=== PATIENT | female | born 1995 | race Caucasian/White ===

== ENCOUNTER → 2020-05-15 09:30 | Outpatient (CLI) | payer OTHER, SELFPAY ==
[2020-05-16 12:37] LABS: COVID19 Sendout Not Detected (Not Detect)
== END ==
PROVIDERS: Visit Provider Physician Assistant
DX: Z11.59 Encounter for screening for other viral diseases (principal)
CPT/HCPCS: 87635

== ENCOUNTER 2020-05-18 13:30 | Day surgery (SDC) | payer OTHER, SELFPAY ==
[2020-05-18] VITALS (9 sets, daily range): BP systolic 112–126; BP diastolic 61–83; PULSE 66–95; RESP 10–16; TEMP 36.1–36.6; O2SAT 96–100; BMI 18.8
[2020-05-18] MEDS: OXYMETAZOLINE NASAL SPRAY 15 ML 2 SPRAYS NASAL (14:12)
[2020-05-18] MEDS: LACTATED RINGERS 1,000 ML 42 ML IV ×2 (14:24→16:28)
--- NOTE | 2020-05-18 15:16 | PM.PREOP ---
Pre-operative Note COVID-19 COVID-19 status: Negative Interval Note History & Physical reviewed/Exam performed by Physician: Yes Changes to H&P: No
--- NOTE | 2020-05-18 15:17 | P.HP_ITS ---
History of Present Illness History of Present Illness Date Patient Seen: 05/18/20 Time Patient Seen: 15:17 Chief complaint: Nasal airway obstruction Narrative: 24-year-old female presents with complaint of nasal airway obstruction, 2+ right septal deviation, inferior turbinate hypertrophy, and evidence of right internal nasal valve collapse. Following discussion of the material risks benefits complications and alternatives, she elected to proceed with septoplasty, inferior turbinate reduction, and right internal nasal valve release. Patient History Medical History Anemia (Acute) Chronic anxiety (Acute) Deviated septum (Acute) Hypertrophy, nasal, turbinate (Acute) Incompetent nasal valve (Acute) Migraine headache (Acute) MRSA (methicillin resistant Staphylococcus aureus) (Acute 2014) Nasal congestion (Acute) Nasal obstruction (Acute) Rib injury (Acute 2019) Ruptured ovarian cyst (Acute 2017) Surgical History [place] teeth removed (Acute 05/06/13) Family & Social History Social History: household members spouse Tobacco & Substance use: Tobacco type cigarettes Smoking Status Current every day smoker Smoking packs per day 0.5 alcohol intake current alcohol intake frequency holiday/special occasion Substance Use Type does not use Meds Home Medications and Allergies Home Medications Medication Instructions Recorded Confirmed Type [id number] See Rx Instructions .ROUTE .COMPLEX 05/18/20 05/18/20 History tretinoin [Retin-A] 1 applic TOPICAL BEDTIME 05/18/20 05/18/20 History Allergies Allergy/AdvReac Type Severity Reaction Status Date / Time latex Allergy Intermediate Hives Verified 05/18/20 14:05 Review of Systems Review of Systems ROS: Yes All systems reviewed with the patient and are negative except as otherwise documented Exam Vital Signs (past 8 hours): - 05/18/20 13:56 Temperature 97.9 F Pulse Rate 86 Respiratory Rate 16 Blood Pressure 123/83 Pulse Oximetry 100 Oxygen Delivery Method Room Air Narrative Exam Narrative: Well-developed well-nourished female. Heart regular rate and rhythm without murmur, lungs clear to auscultation bilaterally Assessment & Plan Assessment & Plan narrative: Nasal airway obstruction, septal deviation, inferior turbinate hypertrophy, right internal nasal valve restriction. Following discussion of the material risks benefits complications and alternatives, the patient elected to proceed with septoplasty, inferior turbinate reduction, and right internal nasal valve release.
--- NOTE | 2020-05-18 15:20 | P.OP_ITS ---
Operative Date/Time/Diagnoses Date of procedure: 05/18/20 Time of procedure: 16:30 Pre-op diagnosis: Nasal airway obstruction, septal deviation, inferior turbinate hypertrophy, right internal nasal valve restriction Post-op diagnosis: same Procedure & Clinicians Procedure: 1. Septoplasty 2. Bilateral inferior turbinate reduction via intramural cautery Same procedure as scheduled: Yes Indications: 24-year-old female with the above diagnoses incompletely managed with medical therapy presents for the above procedure. Following discussion of the material risks benefits complications and alternatives, the patient elected to proceed. Surgeon: Phil Collazo Click Yes if Unassisted: Yes Anesthesia Type: General and Local Operative Notes Findings: 2+ left septal deviation, large left posterior spur, resected, significant left flap tear and that area, right flap entirely intact. Moderate inferior turbinate hypertrophy. Right internal nasal valve restriction no longer present after completion of septoplasty, therefore valve release not performed. Closure Type: primary Specimen(s): none sent Estimated Blood Loss (mL): 70 Blood products transfused: none Procedure in detail: Following identification and confirmation of consent as well as preoperative Afrin nasal spray, the patient was brought to the operating room suite and placed in the supine position. General endotracheal anesthesia was administered. I infiltrated the septum widely bilaterally with 1% lidocaine 1 100,000 epinephrine followed by temporary packing with cotton with Afrin and 4% lidocaine. Following sterile prep and drape, the packing was removed and I performed a right sam transection incision, elevated the right mucoperichondrial and mucoperiosteal flap. I disarticulated near the bony cartilaginous junction and elevated the left mucoperiosteal flap. Deviated p ortions of the perpendicular plate of the ethmoid and vomer were resected, including a large left posterior septal spur that led to a significant flap tear on that side, right flap entirely intact. The residual quadrilateral cartilage was further straightened by trimming it inferiorly, and the maxillary crest was reduced as well. A 2 mm strip of cartilage paralleling the residual 1 cm dorsal and caudal strut was resected to further straighten the quadrilateral cartilage. The hemitransfixion incision was closed with interrupted 5 0 chromic followed by a running 4 0 plain gut mattress suture to reapproximate the septal flaps. At case completion, 20/1000th of an inch silastic splints were placed bilaterally, sutured anteriorly with a single 4 0 nylon. The head of each inferior turbinate had been previously infiltrated with additional local anesthetic and a 25 gauge spinal needle was used to impaled the length of the turbinate, with cautery on a setting of 15 activated on slow withdrawal, repeated 1 time. The turbinates were then outfractured. The procedure completed, sponge and needle counts were correct and she was extubated in the operating room and taken to recovery room in stable condition without known complication. Postoperative care: Nasal saline every hour while awake, Vaseline to the nostrils at all times, begin irrigations t.i.d. beginning pod 1. Humidifier at the bedside blowing on her face. Tylenol alternating with Advil for pain control, oxycodone if necessary for breakthrough pain. Complications: none Post-operative Condition: stable Disposition: same day surgery Plan for aftercare: DC home, follow-up in 1 week as scheduled for splint removal. Nasal saline every hour while awake, Vaseline to the nostrils at all times, beginning irrigations t.i.d. tomorrow if desired. Tylenol alternating with Advil for pain control, possible oxycodone for breakthrough pain.
[2020-05-18] MEDS: LIDOCAINE 4% SOLN 50 ML 20 ML TOP (15:48)
[2020-05-18] MEDS: LIDOCAINE 1% W/EPI 20 ML INJ (15:48)
[2020-05-18] MEDS: BACITRACIN OINT 0.9 GM PCKT 1 APPLIC TOP (15:51)
[2020-05-18] MEDS: OXYCODONE/ACETAMINOPHEN 5/325 TABLET 1 TAB PO ×2 (16:44→17:03)
[2020-05-18] MEDS: ONDANSETRON 4 MG/2 ML INJ IV (17:03)
== END 2020-05-18 18:00 | disposition home or self-care (01) ==
PROVIDERS: Referring Provider Otolaryngology; Visit Provider Otolaryngology
PROC: (CPT 30520; principal; 2020-05-18 14:45)
DX: J34.2 Deviated nasal septum (principal); J34.89 Other specified disorders of nose and nasal sinuses; J34.3 Hypertrophy of nasal turbinates; F17.210 Nicotine dependence, cigarettes, uncomplicated
CPT/HCPCS: 30520; 30140; A9270; J2250; J2405; J2704; J3010

== ENCOUNTER 2021-12-03 05:31 | Emergency (ER) | payer OTHER, SELFPAY ==
[2021-12-03] VITALS (29 sets, daily range): BP systolic 103–126; BP diastolic 58–79; PULSE 58–90; RESP 11–29; TEMP 36.6–37.1; O2SAT 95–99; BMI 18.0
--- NOTE | 2021-12-03 05:44 | ED_ITS ---
HPI - General Adult <Ann Tolbert MD - Last Filed: 12/04/21 03:55> General Chief complaint: Arrhythmia/Palpitations Stated complaint: SOB/FACE AND HANDS NUMB Time Seen by Provider: 12/03/21 05:43 History of Present Illness HPI narrative: Otherwise healthy 26-year-old woman presents with an episode of palpitations this evening that led to shortness of breath followed by a numbness in the lower part of her chin and upper arms and then a full syncopal episode. She describes this is the 3rd episode in the last 2 weeks. Prior to each episode she gets the sensation of feeling hot, clammy with acute nausea lasting approximately 20-30 seconds before she passes out. She states that over the course of her lifetime she has had minor palpitations but nothing as notable as these recent episodes in the last 2 weeks. She describes no recent fever, cough, chills, abdominal pain, vomiting, diarrhea, headaches. No recent COVID infections or other unusual findings. She notes that she is not and is expecting her menstrual cycle within the next week or so. Related Data Home Medications Medication Instructions Recorded Confirmed [id number] See Rx Instructions .ROUTE .COMPLEX 05/18/20 05/18/20 tretinoin 0.025 % topical cream 1 applic TOPICAL BEDTIME 05/18/20 05/18/20 (Retin-A) Allergies Allergy/AdvReac Type Severity Reaction Status Date / Time latex Allergy Intermediate Hives Verified 05/18/20 14:05 Review of Systems <Ann Tolbert MD - Last Filed: 12/04/21 03:55> Review of Systems Narrative: Remainder of complete review of systems is otherwise unremarkable except for that included in the HPI. Patient History <Ann Tolbert MD - Last Filed: 12/04/21 03:55> Medical History (Updated 12/03/21 @ 06:59 by Ann Tolbert MD) Anemia Chronic anxiety Deviated septum Hypertrophy, nasal, turbinate Incompetent nasal valve Migraine headache MRSA (methicillin resistant Staphylococcus aureus) (2014) Nasal congestion Nasal obstruction Rib injury (2019) Ruptured ovarian cyst (2017) Surgical History [place] teeth removed (05/06/13) Social History household members: spouse Smoking Status: Current every day smoker alcohol intake: current Smoking Status: Current every day smoker alcohol intake frequency: holidays/special occasions only Substance Use Type: does not use Exam <Ann Tolbert MD - Last Filed: 12/04/21 03:55> Initial Vital Signs Initial Vital Signs: Vital Signs Temperature 98.8 F 12/03/21 05:45 Pulse Rate 85 12/03/21 05:45 Respiratory Rate 20 12/03/21 05:45 Blood Pressure 126/79 12/03/21 05:45 Pulse Oximetry 99 12/03/21 05:45 General: Healthy appearing, in no acute distress. Able to give a complete and coherent history. Well-nourished well-developed HEENT: Moist mucous membranes, normal sclera with reactive pupils, Neck: No JVD, supple Respiratory: Lungs are clear to auscultation, no wheezing no rales no rhonchi. Full and symmetrical air movement Cardiac: Regular rate and rhythm no murmurs no bruits Abdomen: Soft, nontender, good bowel tones, no flank pain Skin: Warm and dry, no rashes Neurologic: Grossly neurologically intact with no obvious asymmetries or abnormalities Extremities: No trauma, well perfused Psych: Cooperative, appropriate insight and affect <Demetris Linares DO - Last Filed: 12/03/21 18:51> Initial Vital Signs Initial Vital Signs: Vital Signs Temperature 98.8 F 12/03/21 05:45 Pulse Rate 85 12/03/21 05:45 Respiratory Rate 20 12/03/21 05:45 Blood Pressure 126/79 12/03/21 05:45 Pulse Oximetry 99 12/03/21 05:45 Course <Ann Tolbert MD - Last Filed: 12/04/21 03:55> Orders Ordered: Discontinued Medications Ketorolac Tromethamine (Ketorolac 30 Mg/Ml Vial) 15 mg IV NOW ONE Stop: 12/03/21 06:16 Last Admin: 12/03/21 07:15 Dose: Not Given Documented by: ANGELO Potassium Chloride (Potassium Chloride 20 Meq Tab) 40 meq PO NOW ONE Stop: 12/03/21 06:56 Last Admin: 12/03/21 06:59 Dose: 40 meq Documented by: JENNY Vital Signs Vital signs: Vital Signs - 8 hr 12/03/21 11:00 12/03/21 11:30 12/03/21 12:00 Temperature Pulse Rate 67 75 70 Respiratory Rate 19 15 16 Blood Pressure Pulse Oximetry 97 97 97 12/03/21 12:11 12/03/21 12:30 12/03/21 13:00 Temperature Pulse Rate 77 69 73 Respiratory Rate 13 16 11 L Blood Pressure 104/58 L 108/59 L 108/68 Pulse Oximetry 98 97 97 12/03/21 13:30 12/03/21 14:00 12/03/21 14:30 Temperature Pulse Rate 71 62 61 Respiratory Rate 14 12 15 Blood Pressure 112/60 104/60 104/61 Pulse Oximetry 97 98 96 12/03/21 15:07 12/03/21 15:30 12/03/21 16:00 Temperature Pulse Rate 68 79 84 Respiratory Rate 24 13 23 Blood Pressure Pulse Oximetry 97 12/03/21 16:30 12/03/21 17:00 12/03/21 17:30 Temperature Pulse Rate 84 67 69 Respiratory Rate 14 13 15 Blood Pressure Pulse Oximetry 97 98 98 12/03/21 18:39 Temperature 98 F Pulse Rate 85 Respiratory Rate 18 Blood Pressure 114/74 Pulse Oximetry 96 <Demetris Linares DO - Last Filed: 12/03/21 18:51> Orders Ordered: Discontinued Medications Ketorolac Tromethamine (Ketorolac 30 Mg/Ml Vial) 15 mg IV NOW ONE Stop: 12/03/21 06:16 Last Admin: 12/03/21 07:15 Dose: Not Given Documented by: ANGELO Potassium Chloride (Potassium Chloride 20 Meq Tab) 40 meq PO NOW ONE Stop: 12/03/21 06:56 Last Admin: 12/03/21 06:59 Dose: 40 meq Documented by: JENNY Vital Signs Vital signs: Vital Signs - 8 hr 12/03/21 11:00 12/03/21 11:30 12/03/21 12:00 Temperature Pulse Rate 67 75 70 Respiratory Rate 19 15 16 Blood Pressure Pulse Oximetry 97 97 97 12/03/21 12:11 12/03/21 12:30 12/03/21 13:00 Temperature Pulse Rate 77 69 73 Respiratory Rate 13 16 11 L Blood Pressure 104/58 L 108/59 L 108/68 Pulse Oximetry 98 97 97 12/03/21 13:30 12/03/21 14:00 12/03/21 14:30 Temperature Pulse Rate 71 62 61 Respiratory Rate 14 12 15 Blood Pressure 112/60 104/60 104/61 Pulse Oximetry 97 98 96 12/03/21 15:07 12/03/21 15:30 12/03/21 16:00 Temperature Pulse Rate 68 79 84 Respiratory Rate 24 13 23 Blood Pressure Pulse Oximetry 97 12/03/21 16:30 12/03/21 17:00 12/03/21 17:30 Temperature Pulse Rate 84 67 69 Respiratory Rate 14 13 15 Blood Pressure Pulse Oximetry 97 98 98 12/03/21 18:39 Temperature 98 F Pulse Rate 85 Respiratory Rate 18 Blood Pressure 114/74 Pulse Oximetry 96 Medical Decision Making <Ann Tolbert MD - Last Filed: 12/04/21 03:55> Lab Data Result diagrams: 12/03/21 05:55 12/03/21 05:55 Labs: Lab Results 12/03/21 12/03/21 12/03/21 Range/Units 05:55 05:55 05:55 WBC 7.7 (4.5-11.0) X10^3/uL RBC 4.16 (4.0-5.2) X10^6/uL Hgb 13.6 (12.0-16.0) g/dL Hct 38.2 (36-46) % MCV 91.8 (80-100) fL MCH 32.6 (26-34) PG MCHC 35.6 (30-36) % RDW 13.0 (11.6-14.8) % Plt Count 229 (150-400) X10^3/uL Neut % (Auto) 58.8 (50-75) % Lymph % (Auto) 29.8 (25-40) % Lamb % (Auto) 10.2 (3-14) % Eos % (Auto) 0.6 L (2-4) % Baso % (Auto) 0.6 (0-2) % Neut # (Auto) 4500 (0389-4509) /uL Lymph # (Auto) 2300 (2570-9515) /uL Lamb # (Auto) 800 (0-900) /uL Eos # (Auto) 0 (0-450) /uL Baso # (Auto) 0 (0-100) /uL D-Dimer < 200 (<230) ng/mL Sodium 140 (137-145) mmol/L Potassium 3.1 L (3.4-5.1) mmol/L Chloride 105 (98-107) mmol/L Carbon Dioxide 26 (22-32) mmol/L BUN 12 (7-17) mg/dL Creatinine 0.61 (0.52-1.04) mg/dL Estimated GFR > 60.0 (>60) mL/min BUN/Creatinine Ratio 19.7 (6-22) Glucose 99 (70-100) mg/dL Calcium 9.3 (8.4-10.2) mg/dL Magnesium 1.8 (1.6-2.3) mg/dL Total Bilirubin 0.9 (0.2-1.3) mg/dL AST 25 (14-36) IU/L ALT 20 (<35) IU/L Alkaline Phosphatase 53 (38-126) U/L Troponin I < 0.012 (0.01-0.034) ng/mL NT-Pro-B Natriuret Pep 20 (<125) pg/mL Total Protein 7.6 (6.3-8.2) g/dL Albumin 4.5 (3.5-5.0) g/dL Globulin 3.1 (1.7-4.1) g/dL Albumin/Globulin Ratio 1.5 (1.0-2.8) TSH (0.47-4.68) uIU/mL Ur Bilirubin Confirm (Negative) Urine RBC (0-5/HPF) Urine WBC (0-5/HPF) Ur Squamous Epith Cells (0-5/HPF) Urine Bacteria (None) Urine Mucus (Negative) Ur Culture Indicated? U Opiates 300ng/mL cut (Negative) Ur Oxycodone Screen (Negative) Urine Methadone Screen (Negative) Ur Barbiturates Screen (Negative) U Tricyclic Antidepress (Negative) Ur Phencyclidine Scrn (Negative) Ur Amphetamines Screen (Negative) U Methamphetamines Scrn (Negative) Ur MDMA Scrn (Ecstasy) (Negative) U Benzodiazepines Scrn (Negative) Urine Cocaine Screen (Negative) U Marijuana (THC) Screen (Negative) SARS-CoV-2 (PCR) (Negative) 12/03/21 12/03/21 12/03/21 Range/Units 05:55 06:30 06:40 WBC (4.5-11.0) X10^3/uL RBC (4.0-5.2) X10^6/uL Hgb (12.0-16.0) g/dL Hct (36-46) % MCV (80-100) fL MCH (26-34) PG MCHC (30-36) % RDW (11.6-14.8) % Plt Count (150-400) X10^3/uL Neut % (Auto) (50-75) % Lymph % (Auto) (25-40) % Lamb % (Auto) (3-14) % Eos % (Auto) (2-4) % Baso % (Auto) (0-2) % Neut # (Auto) (5599-7325) /uL Lymph # (Auto) (8309-3752) /uL Lamb # (Auto) (0-900) /uL Eos # (Auto) (0-450) /uL Baso # (Auto) (0-100) /uL D-Dimer (<230) ng/mL Sodium (137-145) mmol/L Potassium (3.4-5.1) mmol/L Chloride (98-107) mmol/L Carbon Dioxide (22-32) mmol/L BUN (7-17) mg/dL Creatinine (0.52-1.04) mg/dL Estimated GFR (>60) mL/min BUN/Creatinine Ratio (6-22) Glucose (70-100) mg/dL Calcium (8.4-10.2) mg/dL Magnesium (1.6-2.3) mg/dL Total Bilirubin (0.2-1.3) mg/dL AST (14-36) IU/L ALT (<35) IU/L Alkaline Phosphatase (38-126) U/L Troponin I (0.01-0.034) ng/mL NT-Pro-B Natriuret Pep (<125) pg/mL Total Protein (6.3-8.2) g/dL Albumin (3.5-5.0) g/dL Globulin (1.7-4.1) g/dL Albumin/Globulin Ratio (1.0-2.8) TSH 3.77 (0.47-4.68) uIU/mL Ur Bilirubin Confirm (Negative) Urine RBC (0-5/HPF) Urine WBC (0-5/HPF) Ur Squamous Epith Cells (0-5/HPF) Urine Bacteria (None) Urine Mucus (Negative) Ur Culture Indicated? U Opiates 300ng/mL cut Negative (Negative) Ur Oxycodone Screen Negative (Negative) Urine Methadone Screen Negative (Negative) Ur Barbiturates Screen Negative (Negative) U Tricyclic Antidepress Negative (Negative) Ur Phencyclidine Scrn Negative (Negative) Ur Amphetamines Screen Negative (Negative) U Methamphetamines Scrn Negative (Negative) Ur MDMA Scrn (Ecstasy) Negative (Negative) U Benzodiazepines Scrn Negative (Negative) Urine Cocaine Screen Negative (Negative) U Marijuana (THC) Screen Negative (Negative) SARS-CoV-2 (PCR) Negative (Negative) 12/03/21 12/03/21 12/03/21 Range/Units 06:40 06:40 10:05 WBC (4.5-11.0) X10^3/uL RBC (4.0-5.2) X10^6/uL Hgb (12.0-16.0) g/dL Hct (36-46) % MCV (80-100) fL MCH (26-34) PG MCHC (30-36) % RDW (11.6-14.8) % Plt Count (150-400) X10^3/uL Neut % (Auto) (50-75) % Lymph % (Auto) (25-40) % Lamb % (Auto) (3-14) % Eos % (Auto) (2-4) % Baso % (Auto) (0-2) % Neut # (Auto) (3525-4751) /uL Lymph # (Auto) (6521-5353) /uL Lamb # (Auto) (0-900) /uL Eos # (Auto) (0-450) /uL Baso # (Auto) (0-100) /uL D-Dimer (<230) ng/mL Sodium (137-145) mmol/L Potassium (3.4-5.1) mmol/L Chloride (98-107) mmol/L Carbon Dioxide (22-32) mmol/L BUN (7-17) mg/dL Creatinine (0.52-1.04) mg/dL Estimated GFR (>60) mL/min BUN/Creatinine Ratio (6-22) Glucose (70-100) mg/dL Calcium (8.4-10.2) mg/dL Magnesium (1.6-2.3) mg/dL Total Bilirubin (0.2-1.3) mg/dL AST (14-36) IU/L ALT (<35) IU/L Alkaline Phosphatase (38-126) U/L Troponin I < 0.012 (0.01-0.034) ng/mL NT-Pro-B Natriuret Pep (<125) pg/mL Total Protein (6.3-8.2) g/dL Albumin (3.5-5.0) g/dL Globulin (1.7-4.1) g/dL Albumin/Globulin Ratio (1.0-2.8) TSH (0.47-4.68) uIU/mL Ur Bilirubin Confirm Negative (Negative) Urine RBC 1-5/hpf (0-5/HPF) Urine WBC 10-30/hpf H (0-5/HPF) Ur Squamous Epith Cells >30 /hpf H (0-5/HPF) Urine Bacteria Moderate (10-30) H (None) Urine Mucus 3+ H (Negative) Ur Culture Indicated? Cult not indicated U Opiates 300ng/mL cut (Negative) Ur Oxycodone Screen (Negative) Urine Methadone Screen (Negative) Ur Barbiturates Screen (Negative) U Tricyclic Antidepress (Negative) Ur Phencyclidine Scrn (Negative) Ur Amphetamines Screen (Negative) U Methamphetamines Scrn (Negative) Ur MDMA Scrn (Ecstasy) (Negative) U Benzodiazepines Scrn (Negative) Urine Cocaine Screen (Negative) U Marijuana (THC) Screen (Negative) SARS-CoV-2 (PCR) (Negative) Point of Care Testing Test Results Negative Urine Dip Bedside Urine Glucose Negative Bedside Urine Bilirubin + 1 Bedside Urine Ketone +++ 80 Urine Specific Vanlue 1.025 Bedside Urine Occult Blood - Negative Bedside Urine pH 6.0 Bedside Urine Protein + 30 Bedside Urine Urobilinogen - Negative Bedside Urine Nitrite - Negative Bedside Urine Leukocytes + 70 Esterase Point of care testing: Point of Care Testing Test Results Negative Urine Dip Bedside Urine Glucose Negative Bedside Urine Bilirubin + 1 Bedside Urine Ketone +++ 80 Urine Specific Vanlue 1.025 Bedside Urine Occult Blood - Negative Bedside Urine pH 6.0 Bedside Urine Protein + 30 Bedside Urine Urobilinogen - Negative Bedside Urine Nitrite - Negative Bedside Urine Leukocytes + 70 Esterase ECG Data Interpretation: Sinus rhythm at a rate of 81, mild sinus arrhythmia Normal intervals, normal axis No acute ischemic changes MDM Narrative Medical decision making narrative: 26-year-old otherwise healthy young woman who has had 3 episodes of what very much sounds like cardiac syncope over the last 2 weeks. With each episode most recent being today just prior to arrival, she experience palpitations shortness of breath became hot, clammy, slightly nauseated and then woke up on the floor feeling significantly improved. Initial workup is unremarkable with normal chest x-ray, EKG initial labs including troponin with potassium slightly low at 3.1. Spoke with Dr. Avila, cardiology. In light of the 3 very cardiac sound being complete syncopal episodes in the last 2 weeks and otherwise healthy 26-year-old woman her recommendation is hospitalization with continuous tele and echocardiogram. [facility] does not have beds at this time but they are expecting discharge is later today. Phone calls will be made to [facility] in [place] as well as [facility] in [place] <Demetris Linares, - Last Filed: 12/03/21 18:51> Lab Data Labs: Lab Results 12/03/21 12/03/21 12/03/21 Range/Units 05:55 05:55 05:55 WBC 7.7 (4.5-11.0) X10^3/uL RBC 4.16 (4.0-5.2) X10^6/uL Hgb 13.6 (12.0-16.0) g/dL Hct 38.2 (36-46) % MCV 91.8 (80-100) fL MCH 32.6 (26-34) PG MCHC 35.6 (30-36) % RDW 13.0 (11.6-14.8) % Plt Count 229 (150-400) X10^3/uL Neut % (Auto) 58.8 (50-75) % Lymph % (Auto) 29.8 (25-40) % Lamb % (Auto) 10.2 (3-14) % Eos % (Auto) 0.6 L (2-4) % Baso % (Auto) 0.6 (0-2) % Neut # (Auto) 4500 (6516-9813) /uL Lymph # (Auto) 2300 (4228-6897) /uL Lamb # (Auto) 800 (0-900) /uL Eos # (Auto) 0 (0-450) /uL Baso # (Auto) 0 (0-100) /uL D-Dimer < 200 (<230) ng/mL Sodium 140 (137-145) mmol/L Potassium 3.1 L (3.4-5.1) mmol/L Chloride 105 (98-107) mmol/L Carbon Dioxide 26 (22-32) mmol/L BUN 12 (7-17) mg/dL Creatinine 0.61 (0.52-1.04) mg/dL Estimated GFR > 60.0 (>60) mL/min BUN/Creatinine Ratio 19.7 (6-22) Glucose 99 (70-100) mg/dL Calcium 9.3 (8.4-10.2) mg/dL Magnesium 1.8 (1.6-2.3) mg/dL Total Bilirubin 0.9 (0.2-1.3) mg/dL AST 25 (14-36) IU/L ALT 20 (<35) IU/L Alkaline Phosphatase 53 (38-126) U/L Troponin I < 0.012 (0.01-0.034) ng/mL NT-Pro-B Natriuret Pep 20 (<125) pg/mL Total Protein 7.6 (6.3-8.2) g/dL Albumin 4.5 (3.5-5.0) g/dL Globulin 3.1 (1.7-4.1) g/dL Albumin/Globulin Ratio 1.5 (1.0-2.8) TSH (0.47-4.68) uIU/mL Ur Bilirubin Confirm (Negative) Urine RBC (0-5/HPF) Urine WBC (0-5/HPF) Ur Squamous Epith Cells (0-5/HPF) Urine Bacteria (None) Urine Mucus (Negative) Ur Culture Indicated? U Opiates 300ng/mL cut (Negative) Ur Oxycodone Screen (Negative) Urine Methadone Screen (Negative) Ur Barbiturates Screen (Negative) U Tricyclic Antidepress (Negative) Ur Phencyclidine Scrn (Negative) Ur Amphetamines Screen (Negative) U Methamphetamines Scrn (Negative) Ur MDMA Scrn (Ecstasy) (Negative) U Benzodiazepines Scrn (Negative) Urine Cocaine Screen (Negative) U Marijuana (THC) Screen (Negative) SARS-CoV-2 (PCR) (Negative) 12/03/21 12/03/21 12/03/21 Range/Units 05:55 06:30 06:40 WBC (4.5-11.0) X10^3/uL RBC (4.0-5.2) X10^6/uL Hgb (12.0-16.0) g/dL Hct (36-46) % MCV (80-100) fL MCH (26-34) PG MCHC (30-36) % RDW (11.6-14.8) % Plt Count (150-400) X10^3/uL Neut % (Auto) (50-75) % Lymph % (Auto) (25-40) % Lamb % (Auto) (3-14) % Eos % (Auto) (2-4) % Baso % (Auto) (0-2) % Neut # (Auto) (3094-5483) /uL Lymph # (Auto) (8613-2928) /uL Lamb # (Auto) (0-900) /uL Eos # (Auto) (0-450) /uL Baso # (Auto) (0-100) /uL D-Dimer (<230) ng/mL Sodium (137-145) mmol/L Potassium (3.4-5.1) mmol/L Chloride (98-107) mmol/L Carbon Dioxide (22-32) mmol/L BUN (7-17) mg/dL Creatinine (0.52-1.04) mg/dL Estimated GFR (>60) mL/min BUN/Creatinine Ratio (6-22) Glucose (70-100) mg/dL Calcium (8.4-10.2) mg/dL Magnesium (1.6-2.3) mg/dL Total Bilirubin (0.2-1.3) mg/dL AST (14-36) IU/L ALT (<35) IU/L Alkaline Phosphatase (38-126) U/L Troponin I (0.01-0.034) ng/mL NT-Pro-B Natriuret Pep (<125) pg/mL Total Protein (6.3-8.2) g/dL Albumin (3.5-5.0) g/dL Globulin (1.7-4.1) g/dL Albumin/Globulin Ratio (1.0-2.8) TSH 3.77 (0.47-4.68) uIU/mL Ur Bilirubin Confirm (Negative) Urine RBC (0-5/HPF) Urine WBC (0-5/HPF) Ur Squamous Epith Cells (0-5/HPF) Urine Bacteria (None) Urine Mucus (Negative) Ur Culture Indicated? U Opiates 300ng/mL cut Negative (Negative) Ur Oxycodone Screen Negative (Negative) Urine Methadone Screen Negative (Negative) Ur Barbiturates Screen Negative (Negative) U Tricyclic Antidepress Negative (Negative) Ur Phencyclidine Scrn Negative (Negative) Ur Amphetamines Screen Negative (Negative) U Methamphetamines Scrn Negative (Negative) Ur MDMA Scrn (Ecstasy) Negative (Negative) U Benzodiazepines Scrn Negative (Negative) Urine Cocaine Screen Negative (Negative) U Marijuana (THC) Screen Negative (Negative) SARS-CoV-2 (PCR) Negative (Negative) 12/03/21 12/03/21 12/03/21 Range/Units 06:40 06:40 10:05 WBC (4.5-11.0) X10^3/uL RBC (4.0-5.2) X10^6/uL Hgb (12.0-16.0) g/dL Hct (36-46) % MCV (80-100) fL MCH (26-34) PG MCHC (30-36) % RDW (11.6-14.8) % Plt Count (150-400) X10^3/uL Neut % (Auto) (50-75) % Lymph % (Auto) (25-40) % Lamb % (Auto) (3-14) % Eos % (Auto) (2-4) % Baso % (Auto) (0-2) % Neut # (Auto) (1346-3027) /uL Lymph # (Auto) (4442-6617) /uL Lamb # (Auto) (0-900) /uL Eos # (Auto) (0-450) /uL Baso # (Auto) (0-100) /uL D-Dimer (<230) ng/mL Sodium (137-145) mmol/L Potassium (3.4-5.1) mmol/L Chloride (98-107) mmol/L Carbon Dioxide (22-32) mmol/L BUN (7-17) mg/dL Creatinine (0.52-1.04) mg/dL Estimated GFR (>60) mL/min BUN/Creatinine Ratio (6-22) Glucose (70-100) mg/dL Calcium (8.4-10.2) mg/dL Magnesium (1.6-2.3) mg/dL Total Bilirubin (0.2-1.3) mg/dL AST (14-36) IU/L ALT (<35) IU/L Alkaline Phosphatase (38-126) U/L Troponin I < 0.012 (0.01-0.034) ng/mL NT-Pro-B Natriuret Pep (<125) pg/mL Total Protein (6.3-8.2) g/dL Albumin (3.5-5.0) g/dL Globulin (1.7-4.1) g/dL Albumin/Globulin Ratio (1.0-2.8) TSH (0.47-4.68) uIU/mL Ur Bilirubin Confirm Negative (Negative) Urine RBC 1-5/hpf (0-5/HPF) Urine WBC 10-30/hpf H (0-5/HPF) Ur Squamous Epith Cells >30 /hpf H (0-5/HPF) Urine Bacteria Moderate (10-30) H (None) Urine Mucus 3+ H (Negative) Ur Culture Indicated? Cult not indicated U Opiates 300ng/mL cut (Negative) Ur Oxycodone Screen (Negative) Urine Methadone Screen (Negative) Ur Barbiturates Screen (Negative) U Tricyclic Antidepress (Negative) Ur Phencyclidine Scrn (Negative) Ur Amphetamines Screen (Negative) U Methamphetamines Scrn (Negative) Ur MDMA Scrn (Ecstasy) (Negative) U Benzodiazepines Scrn (Negative) Urine Cocaine Screen (Negative) U Marijuana (THC) Screen (Negative) SARS-CoV-2 (PCR) (Negative) Point of Care Testing Test Results Negative Urine Dip Bedside Urine Glucose Negative Bedside Urine Bilirubin + 1 Bedside Urine Ketone +++ 80 Urine Specific Vanlue 1.025 Bedside Urine Occult Blood - Negative Bedside Urine pH 6.0 Bedside Urine Protein + 30 Bedside Urine Urobilinogen - Negative Bedside Urine Nitrite - Negative Bedside Urine Leukocytes + 70 Esterase Point of care testing: Point of Care Testing Test Results Negative Urine Dip Bedside Urine Glucose Negative Bedside Urine Bilirubin + 1 Bedside Urine Ketone +++ 80 Urine Specific Vanlue 1.025 Bedside Urine Occult Blood - Negative Bedside Urine pH 6.0 Bedside Urine Protein + 30 Bedside Urine Urobilinogen - Negative Bedside Urine Nitrite - Negative Bedside Urine Leukocytes + 70 Esterase MDM Narrative Medical decision making narrative: 26-year-old otherwise healthy young woman who has had 3 episodes of what very much sounds like cardiac syncope over the last 2 weeks. With each episode most recent being today just prior to arrival, she experience palpitations shortness of breath became hot, clammy, slightly nauseated and then woke up on the floor feeling significantly improved. Initial workup is unremarkable with normal chest x-ray, EKG initial labs including troponin with potassium slightly low at 3.1. Spoke with Dr. Avila, cardiology. In light of the 3 very cardiac sound being complete syncopal episodes in the last 2 weeks and otherwise healthy 26-year-old woman her recommendation is hospitalization with continuous tele and echocardiogram. [facility] does not have beds at this time but they are expecting discharge is later today. Phone calls will be made to [facility] in [place] as well as [facility] in [place] 0700 - ([place]) patient received in sign-out from Dr. Tolbert. I have performed an independent history and physical exam and have no significant additions. Clinical course to this point has been reviewed. Patient resting comfortably 1200 - [facility] has available bed. Dr. Fisher happy to accept. EMS transport notified. <Demetris Linares, DO - Last Filed: 12/03/21 18:51> Critical Care Time Critical Care Time: Yes Total Critical Care Time: 30 Attestation: The high probability of a clinically significant, sudden or life threatening deterioration of the [CV] system(s) required my full and direct attention, intervention and personal management. The aggregate critical care time was [] minutes. This time is in addition to time spent performing reported procedures but includes the following: [x] Data Review and interpretation x Patient assessment and monitoring of vital signs [x] Documentation [x] Medication orders and management Discharge Plan Departure Patient Disposition: [facility] Clinical Impression: Cardiac syncope Prescriptions: No Action tretinoin [Retin-A] 0.025 % Cream 1 applic TOPICAL BEDTIME 0RF [id number] See Rx Instructions .ROUTE .COMPLEX 0RF Rx Instructions: place as needed.
[2021-12-03 06:20] LABS: Add Manual Diff / Slide Review NO; Alanine Aminotransferase 20 IU/L (<35); Albumin 4.5 g/dL (3.5-5.0); Albumin Globulin Ratio 1.5 (1.0-2.8); Alkaline Phosphatase 53 U/L (38-126); Aspartate Aminotransferase 25 IU/L (14-36); BUN Creatinine Ratio 19.7 (6-22); Basophils Absolute Auto 0 /uL (0-100); Basophils Percent Auto 0.6 % (0-2); Bilirubin Total 0.9 mg/dL (0.2-1.3); Blood Urea Nitrogen 12 mg/dL (7-17); Calcium 9.3 mg/dL (8.4-10.2); Carbon Dioxide 26 mmol/L (22-32); Chloride 105 mmol/L (98-107); Eosinophils Absolute Auto 0 /uL (0-450); Eosinophils Percent Auto 0.6 % (2-4); Estimated Glomerular Filt Rate > 60.0 mL/min (>60); Globulin 3.1 g/dL (1.7-4.1); Glucose 99 mg/dL (70-100); HEMOLYSIS < 15 (0-50); Hematocrit 38.2 % (36-46); Hemoglobin 13.6 g/dL (12.0-16.0); Lymphocytes Absolute Auto 2300 /uL (1100-4500); Lymphocytes Percent Auto 29.8 % (25-40); Magnesium 1.8 mg/dL (1.6-2.3); Mean Corpuscular HGB Conc 35.6 % (30-36); Mean Corpuscular Hemoglobin 32.6 PG (26-34); Mean Corpuscular Volume 91.8 fL (80-100); Monocytes Absolute Auto 800 /uL (0-900); Monocytes Percent Auto 10.2 % (3-14); Neutrophils Absolute Auto 4500 /uL (1500-7000); Neutrophils Percent Auto 58.8 % (50-75); Platelet Count 229 X10^3/uL (150-400); Potassium 3.1 mmol/L (3.4-5.1); Red Blood Cell Count 4.16 X10^6/uL (4.0-5.2); Sodium 140 mmol/L (137-145); Total Protein 7.6 g/dL (6.3-8.2); White Blood Cell Count 7.7 X10^3/uL (4.5-11.0)
[2021-12-03 06:25] LABS: D Dimer < 200 ng/mL (<230)
[2021-12-03 06:31] LABS: NT-proBNP (BNP-Adult 18+) 20 pg/mL (<125); Troponin I < 0.012 ng/mL (0.01-0.034)
--- NOTE | 2021-12-03 06:50 | DI.RAD.S_ITS ---
PROCEDURE: XR CHEST 1V INDICATIONS: cardiac syncope TECHNIQUE: One view of the chest was acquired. COMPARISON: None. FINDINGS: Surgical changes and devices: None. Lungs and pleura: Lungs are clear. No pleural effusions or pneumothorax. Mediastinum: Mediastinal contours appear normal. Heart size is normal. Bones and chest wall: No suspicious bony lesions. Overlying soft tissues appear unremarkable. IMPRESSION: No acute cardiopulmonary abnormality. Dictated by: Edis Nix M.D. on 12/03/2021 at 7:27 Approved by: Edis Nix M.D. on 12/03/2021 at 7:27
--- NOTE | 2021-12-03 06:51 | DI.CT.S_ITS ---
PROCEDURE: CT HEAD/BRAIN WO CON INDICATIONS: syncope X 3 TECHNIQUE: Noncontrast 4.5 mm thick angled axial sections acquired from the foramen magnum to the vertex, with coronal and sagittal reformats. For radiation dose reduction, the following was used: automated exposure control, adjustment of mA and/or kV according to patient size. COMPARISON: None. FINDINGS: Image quality: Excellent. CSF spaces: Basal cisterns are patent. No extra-axial fluid collections. Ventricles are normal in size and shape. Brain: No midline shift. No intracranial masses or hemorrhage. [place]-white matter interface is normal. Skull and face: Calvarium and visualized facial bones are intact, without suspicious lesions. Sinuses: Visualized sinuses and mastoids are clear. IMPRESSION: No acute intracranial abnormality. Dictated by: Edis Nix M.D. on 12/03/2021 at 7:29 Approved by: Edis Nix M.D. on 12/03/2021 at 7:30
[2021-12-03] MEDS: POTASSIUM CHLORIDE 20 MEQ TAB 40 MEQ PO (06:59)
[2021-12-03 07:00] LABS: UR Morphine/Opiate cutoff 300 Negative (Negative); Ur Creatinine 50 (Normal); Ur Specific Gravity 1.025 (Normal); Urine Amphetamines Negative (Negative); Urine Barbiturates Negative (Negative); Urine Benzodiazepines Negative (Negative); Urine Cocaine Negative (Negative); Urine MDMA Negative (Negative); Urine Methadone Negative (Negative); Urine Methamphetamines Negative (Negative); Urine Oxycodone Negative (Negative); Urine Phencyclidine Negative (Negative); Urine Tetrahydrocannabinol Negative (Negative); Urine Tricyclic Antidepressant Negative (Negative); Urine pH 5 (Normal)
[2021-12-03 07:08] LABS: Ictotest Urine Negative (Negative)
[2021-12-03 07:08] LABS: COVID19 -Nasal RAPID Negative (Negative)
[2021-12-03 07:10] LABS: RBC Urine 1-5/HPF (0-5/HPF); Squamous Epithelial Cell Urine >30 /HPF (0-5/HPF); WBC Urine 10-30/HPF (0-5/HPF)
[2021-12-03 07:11] LABS: Bacteria Urine Moderate (10-30); Culture Indicated Urine Cult Not Indicated; Mucus Urine 3+ (Negative)
[2021-12-03 07:13] LABS: Thyroid Stimulating Hormone 3.77 uIU/mL (0.47-4.68)
[2021-12-03 10:43] LABS: Troponin I < 0.012 ng/mL (0.01-0.034)
== END 2021-12-03 18:50 | disposition short-term general hospital (02) ==
PROVIDERS: Emergency Medicine; Emergency Provider Emergency Medicine
DX: R55 Syncope and collapse (principal); F17.200 Nicotine dependence, unspecified, uncomplicated; Z20.822 Contact with and (suspected) exposure to COVID-19
CPT/HCPCS: 36415; 70450; 71045; 80053; 80305; 81003; 81015; 81025; 83735; 83880; 84443; 84484; 85025; 85379; 87086; 87635; 93005; 93010; 99284; 99291; C9803

== ENCOUNTER 2022-11-23 16:37 | Emergency (ER) | payer SELFPAY ==
[2022-11-23] VITALS (11 sets, daily range): BP systolic 96–121; BP diastolic 51–70; PULSE 48–82; RESP 28; TEMP 36.2; O2SAT 98–100; BMI 19.1
[2022-11-23] MEDS: ONDANSETRON 4 MG/2 ML INJ IV (16:58)
[2022-11-23] MEDS: SODIUM CHLORIDE 0.9% 1,000 ML 1000 ML IV ×2 (16:59→18:26)
[2022-11-23 17:10] LABS: Add Manual Diff / Slide Review NO; Basophils Absolute Auto 0 /uL (0-100); Basophils Percent Auto 0.3 % (0-2); Eosinophils Absolute Auto 0 /uL (0-450); Eosinophils Percent Auto 0.1 % (2-4); Hematocrit 41.3 % (36-46); Hemoglobin 14.6 g/dL (12.0-16.0); Lymphocytes Absolute Auto 1000 /uL (1100-4500); Lymphocytes Percent Auto 8.3 % (25-40); Mean Corpuscular HGB Conc 35.3 % (30-36); Mean Corpuscular Volume 90.6 fL (80-100); Monocytes Absolute Auto 500 /uL (0-900); Monocytes Percent Auto 4.4 % (3-14); Neutrophils Absolute Auto 10600 /uL (1500-7000); Neutrophils Percent Auto 86.9 % (50-75); Platelet Count 237 X10^3/uL (150-400); Red Blood Cell Count 4.55 X10^6/uL (4.0-5.2); Red Cell Distribution Width 13.4 % (11.6-14.8); White Blood Cell Count 12.2 X10^3/uL (4.5-11.0)
[2022-11-23 17:26] LABS: Alanine Aminotransferase 43 IU/L (<35); Albumin 4.8 g/dL (3.5-5.0); Albumin Globulin Ratio 1.4 (1.0-2.8); Alkaline Phosphatase 69 U/L (38-126); Aspartate Aminotransferase 47 IU/L (14-36); BUN Creatinine Ratio 22.6 (6-22); Bilirubin Total 1.2 mg/dL (0.2-1.3); Blood Urea Nitrogen 12 mg/dL (7-17); Calcium 9.7 mg/dL (8.4-10.2); Carbon Dioxide 21 mmol/L (22-32); Chloride 106 mmol/L (98-107); Estimated Glomerular Filt Rate > 60 mL/min (>60); Globulin 3.4 g/dL (1.7-4.1); Glucose 120 mg/dL (70-100); HEMOLYSIS < 15 (0-50); Lipase 26 U/L (23-300); Potassium 3.5 mmol/L (3.4-5.1); Sodium 140 mmol/L (137-145); Total Protein 8.2 g/dL (6.3-8.2)
[2022-11-23] MEDS: PANTOPRAZOLE 40 MG VIAL IV (17:40)
[2022-11-23 17:54] LABS: Ethanol (ETOH) < 10 mg/dL; Magnesium 1.6 mg/dL (1.6-2.3); Phosphorous 1.5 mg/dL (2.5-4.5)
[2022-11-23 18:21] LABS: PCO2 VBG 24.8 mmHg (45-50); pH VBG 7.54 (7.33-7.43)
[2022-11-23 18:22] LABS: Fractionated Inspired Oxygen 21; HCO3 VBG 21 mmol/L (24-28); Oxygen Saturation VBG 48 % (70-75); PO2 VBG 22 mmHg (35-45); Total CO2 VBG 22 mmol/L (24-29)
--- NOTE | 2022-11-23 19:27 | ED.NAVMDI ---
HPI - Nausea/Vomiting/Diarrhea General Chief complaint: Nausea/Vomiting/Diarrhea Stated complaint: VOMITING,ALCOHOL CONSUMPTION Time Seen by Provider: 11/23/22 17:31 Source: patient Mode of arrival: Ambulatory History of Present Illness HPI Narrative: 27-year-old female daily smoker presents with significant other and a chief complaint of persistent nausea and vomiting with burning in her epigastrium over the course of the day. She admittedly was drinking socially last night and had 5 alcoholic beverages. She states that she threw up once or twice before bed and then upon waking today he is had multiple episodes and now feels fatigued, a bit lightheaded and generally unwell. She is had no fever chills. She is had no recent antibiotics. She denies exposure to bad food or other ill persons. Related Data Home Medications Medication Instructions Recorded Confirmed [id number] See Rx Instructions .Route .COMPLEX 05/18/20 05/18/20 tretinoin 0.025 % topical cream 1 applic topical BEDTIME 05/18/20 05/18/20 (Retin-A) Previous Rx's Medication Instructions Recorded ondansetron 4 mg disintegrating 4 mg PO TID-QID PRN nausea and 11/23/22 tablet vomiting #10 tabs pantoprazole 40 mg tablet,delayed 40 mg PO DAILY #30 tabs 11/23/22 release (Protonix) Allergies Allergy/AdvReac Type Severity Reaction Status Date / Time latex Allergy Intermediate Anxiety Verified 11/23/22 16:46 promethazine AdvReac Verified 11/23/22 16:46 Review of Systems Review of Systems Narrative: GENERAL: See HPI HEENT: Denies sinus pain, ear pain, sore throat, difficulty swallowing, dizziness. RESPIRATORY: Denies dyspnea, cough, wheezing, hemoptysis, sputum. CARDIOVASCULAR: Denies chest pain, palpitations, orthopnea, edema, GASTROINTESTINAL: See HPI : Denies dysuria, frequency, incontinence, hematuria, urinary retention. MUSCULOSKELETAL: denies weakness, joint pain, or bony pain SKIN: Denies rash, skin lesions, or other NEUROLOGIC: Denies weakness, headache, numbness, change in speech, confusion, seizures, incoordination. PSYCHIATRIC: No concerning psychosocial issues. 12 point review of systems is negative except for those stated above Patient History Medical History Anemia Chronic anxiety Deviated septum Hypertrophy, nasal, turbinate Incompetent nasal valve Migraine headache MRSA (methicillin resistant Staphylococcus aureus) (2015) Nasal congestion Nasal obstruction Rib injury (2019) Ruptured ovarian cyst (2017) Surgical History [place] teeth removed (05/06/13) Social History household members: spouse Smoking Status: Current every day smoker alcohol intake: current Smoking Status: Current every day smoker tobacco type: vaping alcohol intake frequency: holidays/special occasions only Substance Use Type: marijuana Exam Narrative Exam Narrative: GENERAL: [27] year old patient appears stated age. Well-developed patient, in mild distress. HEAD: Atraumatic. Normocephalic. EYES: Pupils equal round and reactive. Extraocular motions intact. No scleral icterus. No injection or drainage. ENT: Nose without bleeding, purulent drainage. Throat without erythema, tonsillar hypertrophy or exudate. Airway patent. NECK: Trachea midline. Non tender CARDIOVASCULAR: Regular rate and rhythm without murmurs, gallops, or rubs. RESPIRATORY: Clear to auscultation. Breath sounds equal bilaterally. No wheezes, rales, or rhonchi. GASTROINTESTINAL: Abdomen soft, non-tender, nondistended. EXTREMITIES: No edema or joint tenderness. BACK: Nontender without deformity or crepitance. No flank tenderness. NEURO: AOx3. SKIN: No rash or erythema of visible areas Initial Vital Signs Initial Vital Signs: Vital Signs Temperature 97.2 F L 11/23/22 16:40 Pulse Rate 48 L 11/23/22 16:40 Respiratory Rate 28 H 11/23/22 16:40 Blood Pressure 121/70 11/23/22 16:40 Pulse Oximetry 100 11/23/22 16:40 Oxygen Delivery Method Room Air 11/23/22 16:40 Course Orders Ordered: ED Orders 11/23/22 16:52 Complete Blood Count AUTO DIFF Stat Comprehensive Metabolic Panel Stat Ethanol (ETOH) Stat Lipase Stat MAG [Magnesium] Stat Phosphorous Stat 11/23/22 17:07 EKG-12 Lead Stat 11/23/22 17:45 VBG [Venous Blood Gas] Stat Ondansetron HCl (Ondansetron 4 Mg Odt) 4 mg PO NOW PRN PRN Reason: Nausea And Vomiting Ondansetron HCl (Ondansetron 4 Mg/2 Ml Inj) 4 mg IV NOW PRN PRN Reason: Nausea And Vomiting Last Admin: 11/23/22 16:58 Dose: 4 mg Documented By: CHIKIS Discontinued Medications Sodium Chloride (Normal Saline 0.9%) 1,000 mls @ 1,000 mls/hr IV BOLUS ONE Stop: 11/23/22 17:58 Last Infusion: 11/23/22 18:26 Dose: 0 mls/hr Documented By: Admin: 11/23/22 16:59 Dose: 1,000 mls/hr Documented By: CHIKIS Sodium Chloride (Normal Saline 0.9%) 1,000 mls @ 1,000 mls/hr IV BOLUS ONE Stop: 11/23/22 19:15 Last Admin: 11/23/22 18:26 Dose: 1,000 mls/hr Documented By: TC Ondansetron HCl (Ondansetron 4 Mg Odt Prepack) 1 bottle MISC SEEINSTR ONE Stop: 11/23/22 19:38 Last Admin: 11/23/22 19:57 Dose: 1 bottle Pantoprazole Sodium (Pantoprazole 40 Mg Vial) 40 mg IV NOW ONE Stop: 11/23/22 17:33 Last Admin: 11/23/22 17:40 Dose: 40 mg Documented By: TC Reevaluation(s) Reevaluation #1: Patient feeling much better after above-stated therapies, ambulatory in the department, tolerating orals Vital Signs Vital signs: Vital Signs - 8 hr 11/23/22 16:40 11/23/22 18:20 11/23/22 18:21 Temperature 97.2 F L Pulse Rate 48 L 55 L Respiratory Rate 28 H Blood Pressure 121/70 109/58 L Pulse Oximetry 100 98 Oxygen Delivery Method Room Air 11/23/22 18:21 11/23/22 18:30 11/23/22 18:45 Temperature Pulse Rate 58 L 56 L Respiratory Rate Blood Pressure 103/59 L Pulse Oximetry 98 99 Oxygen Delivery Method 11/23/22 18:45 11/23/22 19:00 11/23/22 19:00 Temperature Pulse Rate 63 72 Respiratory Rate Blood Pressure 96/51 L Pulse Oximetry 99 98 Oxygen Delivery Method 11/23/22 19:15 11/23/22 19:15 Temperature Pulse Rate 71 Respiratory Rate Blood Pressure 103/56 L Pulse Oximetry 99 Oxygen Delivery Method MDM - Nausea/Vomiting/Diarrhea Lab Data 11/23/22 16:52 11/23/22 16:52 Labs: Lab Results 11/23/22 11/23/22 11/23/22 Range/Units 16:52 16:52 16:52 WBC 12.2 H (4.5-11.0) X10^3/uL RBC 4.55 (4.0-5.2) X10^6/uL Hgb 14.6 (12.0-16.0) g/dL Hct 41.3 (36-46) % MCV 90.6 (80-100) fL MCH 32.0 (26-34) PG MCHC 35.3 (30-36) % RDW 13.4 (11.6-14.8) % Plt Count 237 (150-400) X10^3/uL Neut % (Auto) 86.9 H (50-75) % Lymph % (Auto) 8.3 L (25-40) % [place] % (Auto) 4.4 (3-14) % Eos % (Auto) 0.1 L (2-4) % Baso % (Auto) 0.3 (0-2) % Neut # (Auto) 13453 H (5016-9928) /uL Lymph # (Auto) 1000 L (3716-1965) /uL [place] # (Auto) 500 (0-900) /uL Eos # (Auto) 0 (0-450) /uL Baso # (Auto) 0 (0-100) /uL VBG pH (7.33-7.43) VBG pCO2 (45-50) mmHg VBG pO2 (35-45) mmHg VBG HCO3 (24-28) mmol/L VBG Total CO2 (24-29) mmol/L VBG O2 Saturation (70-75) % VBG Base Excess (0-4) mmol/L FiO2 Sodium 140 (137-145) mmol/L Potassium 3.5 (3.4-5.1) mmol/L Chloride 106 (98-107) mmol/L Carbon Dioxide 21 L (22-32) mmol/L BUN 12 (7-17) mg/dL Creatinine 0.53 (0.52-1.04) mg/dL Estimated GFR > 60 (>60) mL/min BUN/Creatinine Ratio 22.6 H (6-22) Glucose 120 H (70-100) mg/dL Calcium 9.7 (8.4-10.2) mg/dL Phosphorus 1.5 L (2.5-4.5) mg/dL Magnesium 1.6 (1.6-2.3) mg/dL Total Bilirubin 1.2 (0.2-1.3) mg/dL AST 47 H (14-36) IU/L ALT 43 H (<35) IU/L Alkaline Phosphatase 69 (38-126) U/L Total Protein 8.2 (6.3-8.2) g/dL Albumin 4.8 (3.5-5.0) g/dL Globulin 3.4 (1.7-4.1) g/dL Albumin/Globulin Ratio 1.4 (1.0-2.8) Lipase 26 (23-300) U/L Ethyl Alcohol < 10 ( - 10) mg/dL 11/23/22 Range/Units 17:45 WBC (4.5-11.0) X10^3/uL RBC (4.0-5.2) X10^6/uL Hgb (12.0-16.0) g/dL Hct (36-46) % MCV (80-100) fL MCH (26-34) PG MCHC (30-36) % RDW (11.6-14.8) % Plt Count (150-400) X10^3/uL Neut % (Auto) (50-75) % Lymph % (Auto) (25-40) % [place] % (Auto) (3-14) % Eos % (Auto) (2-4) % Baso % (Auto) (0-2) % Neut # (Auto) (4903-7562) /uL Lymph # (Auto) (4566-7292) /uL [place] # (Auto) (0-900) /uL Eos # (Auto) (0-450) /uL Baso # (Auto) (0-100) /uL VBG pH 7.54 H (7.33-7.43) VBG pCO2 24.8 L (45-50) mmHg VBG pO2 22 L (35-45) mmHg VBG HCO3 21 L (24-28) mmol/L VBG Total CO2 22 L (24-29) mmol/L VBG O2 Saturation 48 L (70-75) % VBG Base Excess -2.0 L (0-4) mmol/L FiO2 21 Sodium (137-145) mmol/L Potassium (3.4-5.1) mmol/L Chloride (98-107) mmol/L Carbon Dioxide (22-32) mmol/L BUN (7-17) mg/dL Creatinine (0.52-1.04) mg/dL Estimated GFR (>60) mL/min BUN/Creatinine Ratio (6-22) Glucose (70-100) mg/dL Calcium (8.4-10.2) mg/dL Phosphorus (2.5-4.5) mg/dL Magnesium (1.6-2.3) mg/dL Total Bilirubin (0.2-1.3) mg/dL AST (14-36) IU/L ALT (<35) IU/L Alkaline Phosphatase (38-126) U/L Total Protein (6.3-8.2) g/dL Albumin (3.5-5.0) g/dL Globulin (1.7-4.1) g/dL Albumin/Globulin Ratio (1.0-2.8) Lipase (23-300) U/L Ethyl Alcohol ( - 10) mg/dL Point of Care Testing Test Results Negative Urine Dip Bedside Urine Glucose Negative Bedside Urine Bilirubin - Negative Bedside Urine Ketone +++ 80 Urine Specific [place] 1.005 Bedside Urine Occult Blood - Negative Bedside Urine pH 8.5 Bedside Urine Protein + 30 Bedside Urine Urobilinogen - Negative Bedside Urine Nitrite - Negative Bedside Urine Leukocytes - Negative Esterase MDM Narrative Medical decision making narrative: [27] year old patient presents with nausea and vomiting Multiple etiologies for patient's symptoms considered including, but not limited to: [Alcohol abuse versus gastroenteritis versus pancreatitis versus other] Prior Charts reviewed in our EMR Primary Historian: patient Labs reviewed and interpreted by myself: Slight increase in white blood cells likely consequence of vomiting, no signs of anemia, electrolytes and kidney function within normal Patient's symptoms improved over duration of stay with above-stated therapies. Findings and discharge diagnosis discussed with patient/family followed by verbalization of understanding Return precautions discussed with patient/family whom verbalize understanding of diagnosis and plan Discharge Plan Departure Patient Disposition: Home Clinical Impression: Acute vomiting Instructions: DI for Dehydration -- Adult, Nausea and Vomiting-Adult Activity Restrictions/Additional Instructions: *You have been diagnosed with [nausea and vomiting. As we discussed your history and physical exam as well as labs and response to therapies is very reassuring and no further treatment or evaluation is necessary at this time] *What to do: *Please continue to take your regular medications as directed. [x ] New medication prescriptions sent to your pharmacy: [ [facility] in [place]] [ ] New medication written as a paper prescription [ ] No new medications given *Please follow up with your primary care provider in 2-3 days, call for an appointment. Let them know you were seen in the Emergency Department and that we ask that you be seen in follow up. We will electronically transmit a record of today's note if your PCP is in our system * as we discussed it would be most reasonable to consider clear liquids for the next day or 2 and remember small and perhaps more frequent feedings. Avoid spicy food, fatty food, dairy, alcohol and significant caffeine for the next few days.. *Return to Emergency Department if you should have any new, worsening or concerning symptoms, such as [fever greater than 101 F, shaking chills, worsening pain, persistent vomiting or other bothersome symptoms] Prescriptions: New pantoprazole [Protonix] 40 mg tablet,delayed release (DR/EC) 40 mg PO DAILY Qty: 30 0RF ondansetron 4 mg tablet,disintegrating 4 mg PO TID-QID PRN (Reason: nausea and vomiting) Qty: 10 0RF No Action tretinoin [Retin-A] 0.025 % Cream 1 applic TOPICAL BEDTIME [id number] See Rx Instructions .ROUTE .COMPLEX Rx Instructions: place as needed. Stand Alone Forms: Patient Portal/API
[2022-11-23] MEDS: ONDANSETRON 4 MG ODT PREPACK 1 BOTTLE MISC (19:57)
== END 2022-11-23 20:31 | disposition home or self-care (01) ==
PROVIDERS: Emergency Medicine; Emergency Provider Emergency Medicine
DX: R11.2 Nausea with vomiting, unspecified (principal); R10.13 Epigastric pain; R10.9 Unspecified abdominal pain
CPT/HCPCS: 36415; 80053; 80320; 81003; 81025; 82805; 83690; 83735; 84100; 85025; 93005; 96361; 96374; 96375; 99284; C9113; J2405

== ENCOUNTER 2022-12-16 06:07 | Emergency (ER) | payer OTHER, SELFPAY ==
[2022-12-16 06:11] VITALS: BP 116/55; PULSE 67; RESP 16; TEMP 36.4; O2SAT 98; BMI 19.1
--- NOTE | 2022-12-16 06:20 | ED.NAVMDI ---
HPI - Nausea/Vomiting/Diarrhea <Reagan Hernandez DO - Last Filed: 12/16/22 18:11> General Chief complaint: Nausea/Vomiting/Diarrhea Stated complaint: food poisoning and passed out Time Seen by Provider: 12/16/22 06:09 Source: patient Mode of arrival: Ambulatory Limitations: no limitations History of Present Illness HPI Narrative: Patient is a 27-year-old female who states that approximately 48 hours ago she developed episodes vomiting and diarrhea. His continued over the past couple days. She does have Zofran at home which she took yesterday and states it did help her symptoms but then last night the nausea came back. She took a dose of the Zofran but then threw up afterwards. She then had an episode where she passed out. She has passed out in the past. She currently states she is having nausea. Related Data Home Medications Medication Instructions Recorded Confirmed [id number] See Rx Instructions .Route .COMPLEX 05/18/20 05/18/20 tretinoin 0.025 % topical cream 1 applic topical BEDTIME 05/18/20 05/18/20 (Retin-A) Previous Rx's Medication Instructions Recorded ondansetron 4 mg disintegrating 4 mg PO TID-QID PRN nausea and 11/23/22 tablet vomiting #10 tabs pantoprazole 40 mg tablet,delayed 40 mg PO DAILY #30 tabs 11/23/22 release (Protonix) ondansetron 4 mg disintegrating 4 mg PO Q8H PRN nausea and 12/16/22 tablet vomiting #10 tabs Allergies Allergy/AdvReac Type Severity Reaction Status Date / Time latex Allergy Intermediate Anxiety Verified 11/23/22 16:46 promethazine AdvReac Verified 11/23/22 16:46 Review of Systems <Reagan Hernandez DO - Last Filed: 12/16/22 18:11> Constitutional Constitutional: Reports system reviewed and no additional complaints, except as documented Gastrointestinal Gastrointestinal: Reports system reviewed and no additional complaints, except as documented Genitourinary Genitourinary: Reports system reviewed and no additional complaints, except as documented Neurologic Neurologic: Reports system reviewed and no additional complaints, except as documented Patient History <Reagan Hernandez DO - Last Filed: 12/16/22 18:11> Medical History (Updated 12/16/22 @ 09:04 by Leyda Gamboa DO) Anemia Chronic anxiety Deviated septum Hypertrophy, nasal, turbinate Incompetent nasal valve Migraine headache MRSA (methicillin resistant Staphylococcus aureus) (2015) Nasal congestion Nasal obstruction Rib injury (2019) Ruptured ovarian cyst (2017) Surgical History [place] teeth removed (05/06/13) Social History household members: spouse Smoking Status: Current every day smoker alcohol intake: current Smoking Status: Current every day smoker tobacco type: vaping alcohol intake frequency: holidays/special occasions only Substance Use Type: marijuana Exam <DO Yvonne Penny Last Filed: 12/16/22 18:11> Initial Vital Signs Initial Vital Signs: Vital Signs Temperature 97.6 F 12/16/22 06:11 Pulse Rate 67 12/16/22 06:11 Respiratory Rate 16 12/16/22 06:11 Blood Pressure 116/55 L 12/16/22 06:11 Pulse Oximetry 98 12/16/22 06:11 Oxygen Delivery Method Room Air 12/16/22 06:11 Const General: cooperative and comfortable HENMT Head: normal to inspection Resp Effort & Inspection: normal respiratory effort Cardio Rate: regular rate Neuro General: patient alert, patient awake and moves all extremities Extrem Other: No gross deformities <DO Yvonne Ochoa Last Filed: 12/16/22 19:33> Initial Vital Signs Initial Vital Signs: Vital Signs Temperature 97.6 F 12/16/22 06:11 Pulse Rate 67 12/16/22 06:11 Respiratory Rate 16 12/16/22 06:11 Blood Pressure 116/55 L 12/16/22 06:11 Pulse Oximetry 98 12/16/22 06:11 Oxygen Delivery Method Room Air 12/16/22 06:11 Course <DO Yvonne Penny Last Filed: 12/16/22 18:11> Orders Ordered: Discontinued Medications Sodium Chloride (Normal Saline 0.9%) 1,000 mls @ 1,000 mls/hr IV BOLUS ONE Stop: 12/16/22 07:16 Last Infusion: 12/16/22 07:28 Dose: 0 mls/hr Documented By: Admin: 12/16/22 06:26 Dose: 1,000 mls/hr Documented By: REKHA Lorazepam (Lorazepam 2 Mg/Ml Inj) 0.5 mg IV NOW ONE Stop: 12/16/22 08:06 Last Admin: 12/16/22 08:19 Dose: 0.5 mg Documented By: KARTHIK Ondansetron HCl (Ondansetron 4 Mg/2 Ml Inj) 4 mg IV NOW ONE Stop: 12/16/22 06:18 Last Admin: 12/16/22 06:26 Dose: 4 mg Documented By: REKHA Pantoprazole Sodium (Pantoprazole 40 Mg Vial) 40 mg IV NOW ONE Stop: 12/16/22 08:03 Last Admin: 12/16/22 08:19 Dose: 40 mg Documented By: KARTHIK Vital Signs Vital signs: Vital Signs - 8 hr 12/16/22 06:11 Temperature 97.6 F Pulse Rate 67 Respiratory Rate 16 Blood Pressure 116/55 L Pulse Oximetry 98 Oxygen Delivery Method Room Air <Leyda Gamboa DO - Last Filed: 12/16/22 19:33> Orders Ordered: Discontinued Medications Sodium Chloride (Normal Saline 0.9%) 1,000 mls @ 1,000 mls/hr IV BOLUS ONE Stop: 12/16/22 07:16 Last Infusion: 12/16/22 07:28 Dose: 0 mls/hr Documented By: Admin: 12/16/22 06:26 Dose: 1,000 mls/hr Documented By: REKHA Lorazepam (Lorazepam 2 Mg/Ml Inj) 0.5 mg IV NOW ONE Stop: 12/16/22 08:06 Last Admin: 12/16/22 08:19 Dose: 0.5 mg Documented By: KARTHIK Ondansetron HCl (Ondansetron 4 Mg/2 Ml Inj) 4 mg IV NOW ONE Stop: 12/16/22 06:18 Last Admin: 12/16/22 06:26 Dose: 4 mg Documented By: REKHA Pantoprazole Sodium (Pantoprazole 40 Mg Vial) 40 mg IV NOW ONE Stop: 12/16/22 08:03 Last Admin: 12/16/22 08:19 Dose: 40 mg Documented By: KARTHIK Vital Signs Vital signs: Vital Signs - 8 hr 12/16/22 06:11 Temperature 97.6 F Pulse Rate 67 Respiratory Rate 16 Blood Pressure 116/55 L Pulse Oximetry 98 Oxygen Delivery Method Room Air MDM - Nausea/Vomiting/Diarrhea <Reagan Lanker, DO - Last Filed: 12/16/22 18:11> Lab Data 12/16/22 08:30 12/16/22 08:30 Labs: Lab Results 12/16/22 12/16/22 12/16/22 Range/Units 06:33 08:30 08:30 WBC 7.8 (4.5-11.0) X10^3/uL RBC 3.60 L (4.0-5.2) X10^6/uL Hgb 11.7 L (12.0-16.0) g/dL Hct 32.5 L (36-46) % MCV 90.4 (80-100) fL MCH 32.7 (26-34) PG MCHC 36.1 H (30-36) % RDW 13.1 (11.6-14.8) % Plt Count 163 (150-400) X10^3/uL Neut % (Auto) 70.5 (50-75) % Lymph % (Auto) 22.7 L (25-40) % Stone % (Auto) 5.6 (3-14) % Eos % (Auto) 0.6 L (2-4) % Baso % (Auto) 0.6 (0-2) % Neut # (Auto) 5500 (1779-0565) /uL Lymph # (Auto) 1800 (0932-3554) /uL Stone # (Auto) 400 (0-900) /uL Eos # (Auto) 0 (0-450) /uL Baso # (Auto) 0 (0-100) /uL Sodium 140 (137-145) mmol/L Potassium 3.4 (3.4-5.1) mmol/L Chloride 112 H (98-107) mmol/L Carbon Dioxide 24 (22-32) mmol/L BUN 10 (7-17) mg/dL Creatinine 0.60 (0.52-1.04) mg/dL Estimated GFR > 60 (>60) mL/min BUN/Creatinine Ratio 16.7 (6-22) Glucose 97 (70-100) mg/dL Calcium 8.1 L (8.4-10.2) mg/dL Total Bilirubin 0.4 (0.2-1.3) mg/dL AST 30 (14-36) IU/L ALT 29 (<35) IU/L Alkaline Phosphatase 46 (38-126) U/L Total Protein 5.8 L (6.3-8.2) g/dL Albumin 3.5 (3.5-5.0) g/dL Globulin 2.3 (1.7-4.1) g/dL Albumin/Globulin Ratio 1.5 (1.0-2.8) Lipase (23-300) U/L Urine Color Yellow Urine Appearance Clear Urine pH 6.0 (4.5-8.0) Ur Specific Kevin >=1.030 H (1.000-1.035) Urine Protein Negative (Negative) Urine Glucose (UA) Negative (Negative) g/dL Urine Ketones Negative (NEGATIVE) Urine Occult Blood Negative (Negative) Urine Nitrate Negative (Negative) Urine Bilirubin Negative (NEGATIVE) Urine Urobilinogen 0.2 (0.2) E.U./dL Ur Leukocyte Esterase Negative (NEGATIVE) Urine RBC 0-1/hpf (0-5/HPF) Urine WBC 0-1/hpf (0-5/HPF) Ur Squamous Epith Cells 5-10 /hpf H (0-5/HPF) Urine Bacteria None seen (None) Ur Culture Indicated? Cult not indicated Micro UA Comment * 12/16/22 Range/Units 08:30 WBC (4.5-11.0) X10^3/uL RBC (4.0-5.2) X10^6/uL Hgb (12.0-16.0) g/dL Hct (36-46) % MCV (80-100) fL MCH (26-34) PG MCHC (30-36) % RDW (11.6-14.8) % Plt Count (150-400) X10^3/uL Neut % (Auto) (50-75) % Lymph % (Auto) (25-40) % Stone % (Auto) (3-14) % Eos % (Auto) (2-4) % Baso % (Auto) (0-2) % Neut # (Auto) (0331-4344) /uL Lymph # (Auto) (4754-7623) /uL Stone # (Auto) (0-900) /uL Eos # (Auto) (0-450) /uL Baso # (Auto) (0-100) /uL Sodium (137-145) mmol/L Potassium (3.4-5.1) mmol/L Chloride (98-107) mmol/L Carbon Dioxide (22-32) mmol/L BUN (7-17) mg/dL Creatinine (0.52-1.04) mg/dL Estimated GFR (>60) mL/min BUN/Creatinine Ratio (6-22) Glucose (70-100) mg/dL Calcium (8.4-10.2) mg/dL Total Bilirubin (0.2-1.3) mg/dL AST (14-36) IU/L ALT (<35) IU/L Alkaline Phosphatase (38-126) U/L Total Protein (6.3-8.2) g/dL Albumin (3.5-5.0) g/dL Globulin (1.7-4.1) g/dL Albumin/Globulin Ratio (1.0-2.8) Lipase 51 (23-300) U/L Urine Color Urine Appearance Urine pH (4.5-8.0) Ur Specific Kevin (1.000-1.035) Urine Protein (Negative) Urine Glucose (UA) (Negative) g/dL Urine Ketones (NEGATIVE) Urine Occult Blood (Negative) Urine Nitrate (Negative) Urine Bilirubin (NEGATIVE) Urine Urobilinogen (0.2) E.U./dL Ur Leukocyte Esterase (NEGATIVE) Urine RBC (0-5/HPF) Urine WBC (0-5/HPF) Ur Squamous Epith Cells (0-5/HPF) Urine Bacteria (None) Ur Culture Indicated? Micro UA Comment Point of Care Testing Test Results Negative MDM Narrative Medical decision making narrative: Nontoxic appearing. test is negative. She is a benign exam. Was receiving fluids and Zofran. Will attempt a p.o. challenge. Care turned over to Dr. Gamboa to follow-up and disposition. <Leyda Gamboa, DO - Last Filed: 12/16/22 19:33> Lab Data Labs: Lab Results 12/16/22 12/16/22 12/16/22 Range/Units 06:33 08:30 08:30 WBC 7.8 (4.5-11.0) X10^3/uL RBC 3.60 L (4.0-5.2) X10^6/uL Hgb 11.7 L (12.0-16.0) g/dL Hct 32.5 L (36-46) % MCV 90.4 (80-100) fL MCH 32.7 (26-34) PG MCHC 36.1 H (30-36) % RDW 13.1 (11.6-14.8) % Plt Count 163 (150-400) X10^3/uL Neut % (Auto) 70.5 (50-75) % Lymph % (Auto) 22.7 L (25-40) % Stone % (Auto) 5.6 (3-14) % Eos % (Auto) 0.6 L (2-4) % Baso % (Auto) 0.6 (0-2) % Neut # (Auto) 5500 (7817-4922) /uL Lymph # (Auto) 1800 (5285-4800) /uL Stone # (Auto) 400 (0-900) /uL Eos # (Auto) 0 (0-450) /uL Baso # (Auto) 0 (0-100) /uL Sodium 140 (137-145) mmol/L Potassium 3.4 (3.4-5.1) mmol/L Chloride 112 H (98-107) mmol/L Carbon Dioxide 24 (22-32) mmol/L BUN 10 (7-17) mg/dL Creatinine 0.60 (0.52-1.04) mg/dL Estimated GFR > 60 (>60) mL/min BUN/Creatinine Ratio 16.7 (6-22) Glucose 97 (70-100) mg/dL Calcium 8.1 L (8.4-10.2) mg/dL Total Bilirubin 0.4 (0.2-1.3) mg/dL AST 30 (14-36) IU/L ALT 29 (<35) IU/L Alkaline Phosphatase 46 (38-126) U/L Total Protein 5.8 L (6.3-8.2) g/dL Albumin 3.5 (3.5-5.0) g/dL Globulin 2.3 (1.7-4.1) g/dL Albumin/Globulin Ratio 1.5 (1.0-2.8) Lipase (23-300) U/L Urine Color Yellow Urine Appearance Clear Urine pH 6.0 (4.5-8.0) Ur Specific Kevin >=1.030 H (1.000-1.035) Urine Protein Negative (Negative) Urine Glucose (UA) Negative (Negative) g/dL Urine Ketones Negative (NEGATIVE) Urine Occult Blood Negative (Negative) Urine Nitrate Negative (Negative) Urine Bilirubin Negative (NEGATIVE) Urine Urobilinogen 0.2 (0.2) E.U./dL Ur Leukocyte Esterase Negative (NEGATIVE) Urine RBC 0-1/hpf (0-5/HPF) Urine WBC 0-1/hpf (0-5/HPF) Ur Squamous Epith Cells 5-10 /hpf H (0-5/HPF) Urine Bacteria None seen (None) Ur Culture Indicated? Cult not indicated Micro UA Comment * 12/16/22 Range/Units 08:30 WBC (4.5-11.0) X10^3/uL RBC (4.0-5.2) X10^6/uL Hgb (12.0-16.0) g/dL Hct (36-46) % MCV (80-100) fL MCH (26-34) PG MCHC (30-36) % RDW (11.6-14.8) % Plt Count (150-400) X10^3/uL Neut % (Auto) (50-75) % Lymph % (Auto) (25-40) % Stone % (Auto) (3-14) % Eos % (Auto) (2-4) % Baso % (Auto) (0-2) % Neut # (Auto) (1359-9222) /uL Lymph # (Auto) (0268-5431) /uL Stone # (Auto) (0-900) /uL Eos # (Auto) (0-450) /uL Baso # (Auto) (0-100) /uL Sodium (137-145) mmol/L Potassium (3.4-5.1) mmol/L Chloride (98-107) mmol/L Carbon Dioxide (22-32) mmol/L BUN (7-17) mg/dL Creatinine (0.52-1.04) mg/dL Estimated GFR (>60) mL/min BUN/Creatinine Ratio (6-22) Glucose (70-100) mg/dL Calcium (8.4-10.2) mg/dL Total Bilirubin (0.2-1.3) mg/dL AST (14-36) IU/L ALT (<35) IU/L Alkaline Phosphatase (38-126) U/L Total Protein (6.3-8.2) g/dL Albumin (3.5-5.0) g/dL Globulin (1.7-4.1) g/dL Albumin/Globulin Ratio (1.0-2.8) Lipase 51 (23-300) U/L Urine Color Urine Appearance Urine pH (4.5-8.0) Ur Specific Kevin (1.000-1.035) Urine Protein (Negative) Urine Glucose (UA) (Negative) g/dL Urine Ketones (NEGATIVE) Urine Occult Blood (Negative) Urine Nitrate (Negative) Urine Bilirubin (NEGATIVE) Urine Urobilinogen (0.2) E.U./dL Ur Leukocyte Esterase (NEGATIVE) Urine RBC (0-5/HPF) Urine WBC (0-5/HPF) Ur Squamous Epith Cells (0-5/HPF) Urine Bacteria (None) Ur Culture Indicated? Micro UA Comment Point of Care Testing Test Results Negative MDM Narrative Medical decision making narrative: Nontoxic appearing. test is negative. She is a benign exam. Was receiving fluids and Zofran. Will attempt a p.o. challenge. Care turned over to Dr. Gamboa to follow-up and disposition. Patient signed out to me by Dr. Hernandez if seen evaluated patient myself. Failed oral challenge. Has had nausea vomiting diarrhea for last 2-3 days. Not anything down. Continues to vomit in the ED blood work is added. Given a 2 L of fluids Zofran and Protonix. Blood work is overall reassuring no evidence of acute dehydration or electrolyte abnormality. She was feeling quite anxious she little bit of Ativan which helped a lot. Overall feeling Discharge Plan Departure Patient Disposition: Home Clinical Impression: Gastroenteritis Instructions: DI for Viral Gastroenteritis -- Adult Activity Restrictions/Additional Instructions: 1) You have been diagnosed with gastroenteritis 2) What to do: Drink frequent but small amounts of fluids. I recommend Gatorade or a Gatorade-like product, as it has small amounts of sugar and salts that improve fluid retention. 3) Take medications as directed Zofran 4 mg every 8 hours if needed for nausea or vomiting--> [facility] 4) Follow up with your primary care provider in 2-3 days [and follow up with ortho, urology etc] 5) Return to ER if you should have any new or worsening symptoms such as, unable to hold down fluids despite use of anti-nausea medications and the small volume oral rehydration strategy. Prescriptions: New ondansetron 4 mg tablet,disintegrating 4 mg PO Q8H PRN (Reason: nausea and vomiting) Qty: 10 0RF No Action tretinoin [Retin-A] 0.025 % Cream 1 applic TOPICAL BEDTIME [id number] See Rx Instructions .ROUTE .COMPLEX Rx Instructions: place as needed. pantoprazole [Protonix] 40 mg tablet,delayed release (DR/EC) 40 mg PO DAILY Qty: 30 0RF ondansetron 4 mg tablet,disintegrating 4 mg PO TID-QID PRN (Reason: nausea and vomiting) Qty: 10 0RF Referrals: ProviderIfeanyi [Primary Care Provider] - Stand Alone Forms: Patient Portal/API
[2022-12-16] MEDS: ONDANSETRON 4 MG/2 ML INJ IV (06:26)
[2022-12-16] MEDS: SODIUM CHLORIDE 0.9% 1,000 ML 1000 ML IV (06:26)
[2022-12-16 06:42] LABS: Appearance Urine UA CLEAR; Bilirubin Urine UA NEGATIVE (NEGATIVE); Color Urine UA YELLOW; Glucose Urine UA NEGATIVE (Negative); Ketones Urine UA NEGATIVE (NEGATIVE); Leukocyte Esterase Urine UA NEGATIVE (NEGATIVE); Nitrite Urine UA NEGATIVE (Negative); Occult Blood Urine UA NEGATIVE (Negative); Protein Urine UA NEGATIVE (Negative); Specific Gravity Urine UA >=1.030 (1.000-1.035); Urobilinogen Urine UA 0.2 E.U./dL (0.2)
[2022-12-16 06:51] LABS: Bacteria Urine None Seen; Culture Indicated Urine Cult Not Indicated; RBC Urine 0-1/HPF (0-5/HPF); Squamous Epithelial Cell Urine 5-10 /HPF (0-5/HPF); WBC Urine 0-1/HPF (0-5/HPF)
[2022-12-16] MEDS: ONDANSETRON 4 MG/2 ML INJ (08:19)
[2022-12-16] MEDS: LORazepam 2 MG/ML INJ 0.5 MG IV (08:19)
[2022-12-16] MEDS: PANTOPRAZOLE 40 MG VIAL IV (08:19)
[2022-12-16 08:21] VITALS: PULSE 69; O2SAT 98
[2022-12-16 08:22] VITALS: BP 94/57; PULSE 65; O2SAT 97
--- NOTE | 2022-12-16 08:25 | PC.NURSE ---
received report from [facility]. Pt resting in bed. fluids infused. pt given ice water for PO challenge. shortly after, pt vomited up water in bathroom and had diarrhea. Dr Gamboa at bedside. Orders for another 1L NS and more zofran and protonix. Pt states she is super anxious and having a panic attack 0.5mg ativan given and pt resting in bed with at side. NAD. BP noted 94/systolic.
[2022-12-16 08:30] VITALS: PULSE 66; O2SAT 97
[2022-12-16 08:34] LABS: Add Manual Diff / Slide Review NO; Basophils Absolute Auto 0 /uL (0-100); Basophils Percent Auto 0.6 % (0-2); Eosinophils Absolute Auto 0 /uL (0-450); Eosinophils Percent Auto 0.6 % (2-4); Hematocrit 32.5 % (36-46); Hemoglobin 11.7 g/dL (12.0-16.0); Lymphocytes Absolute Auto 1800 /uL (1100-4500); Lymphocytes Percent Auto 22.7 % (25-40); Mean Corpuscular HGB Conc 36.1 % (30-36); Mean Corpuscular Hemoglobin 32.7 PG (26-34); Mean Corpuscular Volume 90.4 fL (80-100); Monocytes Absolute Auto 400 /uL (0-900); Monocytes Percent Auto 5.6 % (3-14); Neutrophils Absolute Auto 5500 /uL (1500-7000); Neutrophils Percent Auto 70.5 % (50-75); Platelet Count 163 X10^3/uL (150-400); Red Cell Distribution Width 13.1 % (11.6-14.8); White Blood Cell Count 7.8 X10^3/uL (4.5-11.0)
[2022-12-16 08:55] LABS: Alanine Aminotransferase 29 IU/L (<35); Albumin 3.5 g/dL (3.5-5.0); Albumin Globulin Ratio 1.5 (1.0-2.8); Alkaline Phosphatase 46 U/L (38-126); Aspartate Aminotransferase 30 IU/L (14-36); BUN Creatinine Ratio 16.7 (6-22); Bilirubin Total 0.4 mg/dL (0.2-1.3); Blood Urea Nitrogen 10 mg/dL (7-17); Calcium 8.1 mg/dL (8.4-10.2); Carbon Dioxide 24 mmol/L (22-32); Chloride 112 mmol/L (98-107); Estimated Glomerular Filt Rate > 60 mL/min (>60); Globulin 2.3 g/dL (1.7-4.1); Glucose 97 mg/dL (70-100); HEMOLYSIS < 15 (0-50); Potassium 3.4 mmol/L (3.4-5.1); Sodium 140 mmol/L (137-145); Total Protein 5.8 g/dL (6.3-8.2)
[2022-12-16 09:03] LABS: Lipase 51 U/L (23-300)
== END 2022-12-16 09:22 | disposition home or self-care (01) ==
PROVIDERS: Emergency Medicine; Emergency Provider Emergency Medicine
DX: K52.9 Noninfective gastroenteritis and colitis, unspecified (principal); R11.2 Nausea with vomiting, unspecified
CPT/HCPCS: 80053; 81001; 81025; 83690; 85025; 96361; 96374; 96375; 99283; 99284; C9113; J2060; J2405

== ENCOUNTER 2023-02-04 06:36 | Emergency (ER) | payer OTHER, SELFPAY ==
[2023-02-04 06:45] VITALS: BP 109/56; PULSE 56; RESP 18; TEMP 36.2; O2SAT 98; BMI 18.9
--- NOTE | 2023-02-04 07:06 | ED.NAVMDI ---
HPI - Nausea/Vomiting/Diarrhea General Chief complaint: Nausea/Vomiting/Diarrhea Stated complaint: v/d heart palpatations Time Seen by Provider: 02/04/23 06:48 Source: patient Mode of arrival: Ambulatory History of Present Illness HPI Narrative: Patient is a healthy 27-year-old female presents with nausea vomiting diarrhea ongoing for the last 1 hour. She is had cramping in her lower abdomen no specific localization of pain. Heart is racing. No dizziness lightheadedness or passing out. No fever or chills. She was feeling well yesterday. No one else is sick at home. Related Data Home Medications Medication Instructions Recorded Confirmed [id number] See Rx Instructions .Route .COMPLEX 05/18/20 05/18/20 tretinoin 0.025 % topical cream 1 applic topical BEDTIME 05/18/20 05/18/20 (Retin-A) Previous Rx's Medication Instructions Recorded ondansetron 4 mg disintegrating 4 mg PO TID-QID PRN nausea and 11/23/22 tablet vomiting #10 tabs pantoprazole 40 mg tablet,delayed 40 mg PO DAILY #30 tabs 11/23/22 release (Protonix) ondansetron 4 mg disintegrating 4 mg PO Q8H PRN nausea and 12/16/22 tablet vomiting #10 tabs ondansetron 4 mg disintegrating 4 mg PO Q8H PRN nausea and 02/04/23 tablet vomiting #10 tabs Allergies Allergy/AdvReac Type Severity Reaction Status Date / Time latex Allergy Intermediate Anxiety Verified 11/23/22 16:46 promethazine AdvReac Verified 11/23/22 16:46 Review of Systems Review of Systems ROS Unobtainable: All systems reviewed & are unremarkable except as noted in HPI and below Patient History Medical History (Updated 02/04/23 @ 11:23 by Leyda Gamboa DO) Anemia Chronic anxiety Deviated septum Hypertrophy, nasal, turbinate Incompetent nasal valve Migraine headache MRSA (methicillin resistant Staphylococcus aureus) (2014) Nasal congestion Nasal obstruction Rib injury (2019) Ruptured ovarian cyst (2017) Surgical History [place] teeth removed (05/06/13) Social History household members: spouse Smoking Status: Current every day smoker alcohol intake: current Smoking Status: Current every day smoker tobacco type: vaping alcohol intake frequency: holidays/special occasions only Substance Use Type: marijuana Exam Initial Vital Signs Initial Vital Signs: Vital Signs Temperature 97.1 F L 02/04/23 06:45 Pulse Rate 56 L 02/04/23 06:45 Respiratory Rate 18 02/04/23 06:45 Blood Pressure 109/56 L 02/04/23 06:45 Pulse Oximetry 98 02/04/23 06:45 Oxygen Delivery Method Room Air 02/04/23 06:45 GENERAL: Well-appearing 27-year-old female and in no acute distress. HEENT: Head atraumatic,EOMI, pupils reactive, face symmetric, moist mucous membranes CARDIOVASCULAR: Regular rate and rhythm without murmurs, rubs or gallops. RESPIRATORY: Breath sounds equal bilaterally, no wheezes rales or rhonchi. ABDOMEN: Soft, nontender. Normoactive bowel sounds all 4 quadrants. No guarding or rebound. EXTREMITIES: Normal range of motion, no clubbing or edema. Neurovascularly intact NEUROLOGICAL: Alert and oriented x4. SKIN: Warm, dry, no laceration, no petechiae, no rashes or lesions. Course Orders Ordered: Discontinued Medications Sodium Chloride (Normal Saline 0.9%) 1,000 mls @ 1,000 mls/hr IV BOLUS ONE Stop: 02/04/23 08:09 Last Infusion: 02/04/23 08:57 Dose: 0 mls/hr Documented By: Admin: 02/04/23 07:18 Dose: 1,000 mls/hr Documented By: CYRUS Ketorolac Tromethamine (Ketorolac 30 Mg/Ml Vial) 15 mg IV NOW ONE Stop: 02/04/23 08:28 Last Admin: 02/04/23 09:10 Dose: Not Given Documented By: KARTHIK Ondansetron HCl (Ondansetron 4 Mg Odt) 4 mg PO NOW PRN PRN Reason: Nausea And Vomiting Ondansetron HCl (Ondansetron 4 Mg/2 Ml Inj) 4 mg IV NOW PRN PRN Reason: Nausea And Vomiting Last Admin: 02/04/23 07:18 Dose: 4 mg Documented By: CYRUS Vital Signs Vital signs: Vital Signs - 8 hr 02/04/23 06:45 02/04/23 07:18 02/04/23 07:19 Temperature 97.1 F L Pulse Rate 56 L 65 Respiratory Rate 18 Blood Pressure 109/56 L 101/60 Pulse Oximetry 98 100 Oxygen Delivery Method Room Air 02/04/23 07:19 02/04/23 07:30 02/04/23 07:30 Temperature Pulse Rate 68 78 Respiratory Rate Blood Pressure 104/63 Pulse Oximetry 99 97 Oxygen Delivery Method 02/04/23 08:00 02/04/23 08:00 02/04/23 08:30 Temperature Pulse Rate 71 Respiratory Rate Blood Pressure 101/63 102/73 Pulse Oximetry 98 Oxygen Delivery Method 02/04/23 08:30 Temperature Pulse Rate 77 Respiratory Rate Blood Pressure Pulse Oximetry 98 Oxygen Delivery Method MDM - Nausea/Vomiting/Diarrhea Lab Data 02/04/23 07:00 02/04/23 07:00 Labs: Lab Results 02/04/23 02/04/23 02/04/23 Range/Units 07:00 07:00 07:00 WBC 10.3 (4.5-11.0) X10^3/uL RBC 4.18 (4.0-5.2) X10^6/uL Hgb 13.6 (12.0-16.0) g/dL Hct 37.6 (36-46) % MCV 90.1 (80-100) fL MCH 32.6 (26-34) PG MCHC 36.2 H (30-36) % RDW 13.4 (11.6-14.8) % Plt Count 183 (150-400) X10^3/uL Neut % (Auto) 71.7 (50-75) % Lymph % (Auto) 20.3 L (25-40) % Beauregard % (Auto) 7.1 (3-14) % Eos % (Auto) 0.7 L (2-4) % Baso % (Auto) 0.2 (0-2) % Neut # (Auto) 7400 H (1891-2273) /uL Lymph # (Auto) 2100 (5671-9260) /uL Beauregard # (Auto) 700 (0-900) /uL Eos # (Auto) 100 (0-450) /uL Baso # (Auto) 0 (0-100) /uL Sodium 138 (137-145) mmol/L Potassium 3.2 L (3.4-5.1) mmol/L Chloride 106 (98-107) mmol/L Carbon Dioxide 21 L (22-32) mmol/L BUN 10 (7-17) mg/dL Creatinine 0.57 (0.52-1.04) mg/dL Estimated GFR > 60 (>60) mL/min BUN/Creatinine Ratio 17.5 (6-22) Glucose 96 (70-100) mg/dL Calcium 9.0 (8.4-10.2) mg/dL Total Bilirubin 0.6 (0.2-1.3) mg/dL AST 22 (14-36) IU/L ALT 18 (<35) IU/L Alkaline Phosphatase 49 (38-126) U/L Total Protein 7.1 (6.3-8.2) g/dL Albumin 4.3 (3.5-5.0) g/dL Globulin 2.8 (1.7-4.1) g/dL Albumin/Globulin Ratio 1.5 (1.0-2.8) Lipase 42 (23-300) U/L HCG, Quant 103.6 mIU/mL Point of Care Testing Test Results Positive Urine Dip Bedside Urine Glucose Negative Bedside Urine Bilirubin - Negative Bedside Urine Ketone +++ 80 Urine Specific [employer] 1.025 Bedside Urine Occult Blood - Negative Bedside Urine pH 6.0 Bedside Urine Protein - Negative Bedside Urine Urobilinogen - Negative Bedside Urine Nitrite - Negative Bedside Urine Leukocytes - Negative Esterase Imaging Data US - ORTHOTIC TECHNICIAN: Radiologist's Impression: PROCEDURE:? US PELVIC COMPLETE ? INDICATIONS:? POSITIVE HCG; UNKNOWN DATES ? TECHNIQUE:? Real-time scanning was performed of the pelvic organs, with image documentation.? Additional endovaginal scanning was necessary due to incomplete visualization of the adnexal and endometrial structures by transabdominal scanning.? ? COMPARISON:? None. ? FINDINGS:? ?? Uterus:? Uterus is anteverted and normal in size at 8.8 x 4.1 x 5.5 cm. The myometrium is homogeneous. ? The endometrium measures 12.9 mm combined thickness.? ? Ovaries:? The right ovary measures 1.6 x 4.1 x 1.5 cm, with a calculated ovarian volume of 4.9 cc. The left ovary measures 2.1 x 4.5 x 1.9 cm, with a calculated ovarian volume of 9.4 cc. The ovaries have a normal sonographic appearance.? Peripheral left ovarian cyst measures 2.3 x 1.8 x 2.2 cm with peripheral vascularity.? No adnexal masses are seen. ? Other:? No pathologic free abdominal or pelvic fluid. ? ? IMPRESSION:? ? 1. No evidence of intrauterine and complex cystic structure associated with the left ovary.? Differential would include 2.3 cm ectopic and corpus luteum cyst or hemorrhagic cyst.? Consider short-term interval follow-up? ? ? Note:? Critical results were discussed with Dr. Gamboa at 10:09 AM [place] time on 02/04/23 ? Approved by: Len Johnson M.D. on 02/04/2023 at 10:10? ECG Data Interpretation: Normal sinus rhythm rate 64 WV interval 146 QRS [address] changes no T-wave inversions MDM Narrative Medical decision making narrative: 27-year-old female with signs and symptoms consistent with a gastroenteritis. Symptoms have been only ongoing for 1 hour. Potassium is 3.2 consistent with diarrhea and vomiting. No other electrolyte abnormalities or evidence of YUMIKO. She is given fluids Zofran and Toradol. She is tolerating oral fluids overall feeling much better. Oral rehydration education given by myself. Patient is found to be . This is a welcomed but surprised . She reports that she has had miscarriages in the past. She is not really having any localized pain. Ultrasound does show a questionable left cyst versus ectopic. HCG is 103. He is given warning signs regards to return to the ER. All questions have been addressed. 11:20 Dr. Ramey updated patient's systems test results questionable ectopic. She reports that she is putting in for repeat hCG in 2 days and kind follow-up. Discharge Plan Departure Patient Disposition: Home Clinical Impression: Gastroenteritis, Instructions: DI for Viral Gastroenteritis -- Adult Activity Restrictions/Additional Instructions: *You have been diagnosed with gastroenteritis and *What to do: At this time you are very newly . DIONY Guerrero has put in another hCG order for 02/06/23 as an outpatient blood draw. There is a small question of ectopic versus cyst. You also have gastroenteritis with diarrhea and vomiting. Please stay hydrated with Gatorade or Gatorade like product *Continue to take medications as directed Zofran 4 mg every 8 hours if needed for nausea or vomiting--> sent to [facility] Tylenol 1000 mg every 6 hours if needed for pain Avoid ibuprofen *Follow up with your primary care provider in 2-3 days or call [phone] Dr. Ramey call office for follow-up *Return to ER if you should have increasing abdominal pain cramping vaginal bleeding or any new, worsening or concerning symptoms Prescriptions: New ondansetron 4 mg tablet,disintegrating 4 mg PO Q8H PRN (Reason: nausea and vomiting) Qty: 10 0RF No Action tretinoin [Retin-A] 0.025 % Cream 1 applic TOPICAL BEDTIME [id number] See Rx Instructions .ROUTE .COMPLEX Rx Instructions: place as needed. ondansetron 4 mg tablet,disintegrating 4 mg PO Q8H PRN (Reason: nausea and vomiting) Qty: 10 0RF pantoprazole [Protonix] 40 mg tablet,delayed release (DR/EC) 40 mg PO DAILY Qty: 30 0RF ondansetron 4 mg tablet,disintegrating 4 mg PO TID-QID PRN (Reason: nausea and vomiting) Qty: 10 0RF Referrals: Sarah Ramey MD [Physician] - Provider,Ifeanyi MCMANUS [Primary Care Provider] - Stand Alone Forms: Patient Portal/API
[2023-02-04 07:18] VITALS: PULSE 65; O2SAT 100
[2023-02-04] MEDS: SODIUM CHLORIDE 0.9% 1,000 ML 1000 ML IV (07:18)
[2023-02-04] MEDS: ONDANSETRON 4 MG/2 ML INJ IV (07:18)
[2023-02-04 07:19] VITALS: BP 101/60; PULSE 68; O2SAT 99
[2023-02-04 07:30] VITALS: BP 104/63; PULSE 78; O2SAT 97
[2023-02-04 07:56] LABS: Add Manual Diff / Slide Review NO; Basophils Absolute Auto 0 /uL (0-100); Basophils Percent Auto 0.2 % (0-2); Eosinophils Absolute Auto 100 /uL (0-450); Eosinophils Percent Auto 0.7 % (2-4); Hematocrit 37.6 % (36-46); Hemoglobin 13.6 g/dL (12.0-16.0); Lymphocytes Absolute Auto 2100 /uL (1100-4500); Lymphocytes Percent Auto 20.3 % (25-40); Mean Corpuscular HGB Conc 36.2 % (30-36); Mean Corpuscular Hemoglobin 32.6 PG (26-34); Mean Corpuscular Volume 90.1 fL (80-100); Monocytes Absolute Auto 700 /uL (0-900); Monocytes Percent Auto 7.1 % (3-14); Neutrophils Absolute Auto 7400 /uL (1500-7000); Neutrophils Percent Auto 71.7 % (50-75); Platelet Count 183 X10^3/uL (150-400); Red Blood Cell Count 4.18 X10^6/uL (4.0-5.2); Red Cell Distribution Width 13.4 % (11.6-14.8); White Blood Cell Count 10.3 X10^3/uL (4.5-11.0)
[2023-02-04 08:00] VITALS: BP 101/63; PULSE 71; O2SAT 98
[2023-02-04 08:10] LABS: Alanine Aminotransferase 18 IU/L (<35); Albumin 4.3 g/dL (3.5-5.0); Albumin Globulin Ratio 1.5 (1.0-2.8); Alkaline Phosphatase 49 U/L (38-126); Aspartate Aminotransferase 22 IU/L (14-36); BUN Creatinine Ratio 17.5 (6-22); Bilirubin Total 0.6 mg/dL (0.2-1.3); Blood Urea Nitrogen 10 mg/dL (7-17); Carbon Dioxide 21 mmol/L (22-32); Chloride 106 mmol/L (98-107); Estimated Glomerular Filt Rate > 60 mL/min (>60); Globulin 2.8 g/dL (1.7-4.1); Glucose 96 mg/dL (70-100); HEMOLYSIS < 15 (0-50); Lipase 42 U/L (23-300); Potassium 3.2 mmol/L (3.4-5.1); Sodium 138 mmol/L (137-145); Total Protein 7.1 g/dL (6.3-8.2)
[2023-02-04 08:30] VITALS: BP 102/73; PULSE 77; O2SAT 98
--- NOTE | 2023-02-04 09:02 | DI.US.S_ITS ---
PROCEDURE: US PELVIC COMPLETE INDICATIONS: POSITIVE HCG; UNKNOWN DATES TECHNIQUE: Real-time scanning was performed of the pelvic organs, with image documentation. Additional endovaginal scanning was necessary due to incomplete visualization of the adnexal and endometrial structures by transabdominal scanning. COMPARISON: None. FINDINGS: Uterus: Uterus is anteverted and normal in size at 8.8 x 4.1 x 5.5 cm. The myometrium is homogeneous. The endometrium measures 12.9 mm combined thickness. Ovaries: The right ovary measures 1.6 x 4.1 x 1.5 cm, with a calculated ovarian volume of 4.9 cc. The left ovary measures 2.1 x 4.5 x 1.9 cm, with a calculated ovarian volume of 9.4 cc. The ovaries have a normal sonographic appearance. Peripheral left ovarian cyst measures 2.3 x 1.8 x 2.2 cm with peripheral vascularity. No adnexal masses are seen. Other: No pathologic free abdominal or pelvic fluid. IMPRESSION: 1. No evidence of intrauterine and complex cystic structure associated with the left ovary. Differential would include 2.3 cm ectopic and corpus luteum cyst or hemorrhagic cyst. Consider short-term interval follow-up Note: Critical results were discussed with Dr. Gamboa at 10:09 AM [place] time on 02/04/23 Approved by: Len Johnson M.D. on 02/04/2023 at 10:10
[2023-02-04 09:29] LABS: HCG Quantitative /Beta subunit 103.6 mIU/mL
== END 2023-02-04 11:40 | disposition home or self-care (01) ==
PROVIDERS: Emergency Provider Emergency Medicine
DX: K52.9 Noninfective gastroenteritis and colitis, unspecified (principal); R11.2 Nausea with vomiting, unspecified; Z32.01 Encounter for pregnancy test, result positive; R10.9 Unspecified abdominal pain
CPT/HCPCS: 36415; 76817; 76856; 80053; 81003; 81025; 83690; 84702; 85025; 93005; 96361; 96374; 99284; J2405

== ENCOUNTER → 2023-02-06 08:00 | Outpatient (CLI) | payer OTHER, SELFPAY ==
[2023-02-06 09:09] LABS: HCG Quantitative /Beta subunit 333.8 mIU/mL
== END ==
PROVIDERS: Referring Provider Obstetrics & Gynecology; Visit Provider Obstetrics & Gynecology
DX: Z34.90 Encounter for supervision of normal pregnancy, unspecified, unspecified trimester (principal)
CPT/HCPCS: 36415; 84702

== ENCOUNTER → 2023-03-24 09:39 | Outpatient (CLI) | payer SELFPAY ==
[2023-03-24 13:29] LABS: HCG Quantitative /Beta subunit 131050 mIU/mL
== END ==
PROVIDERS: Referring Provider Obstetrics & Gynecology; Visit Provider Obstetrics & Gynecology
DX: O20.9 Hemorrhage in early pregnancy, unspecified (principal)
CPT/HCPCS: 36415; 84702

== ENCOUNTER → 2023-04-03 11:57 | Outpatient (CLI) | payer SELFPAY ==
[2023-04-03 13:09] LABS: Add Manual Diff / Slide Review NO; Basophils Absolute Auto 0 /uL (0-100); Basophils Percent Auto 0.2 % (0-2); Eosinophils Absolute Auto 0 /uL (0-450); Eosinophils Percent Auto 0.3 % (2-4); Hematocrit 37.8 % (36-46); Hemoglobin 13.4 g/dL (12.0-16.0); Lymphocytes Absolute Auto 1700 /uL (1100-4500); Mean Corpuscular HGB Conc 35.6 % (30-36); Mean Corpuscular Hemoglobin 32.8 PG (26-34); Mean Corpuscular Volume 92.3 fL (80-100); Monocytes Absolute Auto 600 /uL (0-900); Neutrophils Absolute Auto 7800 /uL (1500-7000); Neutrophils Percent Auto 76.5 % (50-75); Platelet Count 212 X10^3/uL (150-400); Red Blood Cell Count 4.09 X10^6/uL (4.0-5.2); Red Cell Distribution Width 13.2 % (11.6-14.8); White Blood Cell Count 10.3 X10^3/uL (4.5-11.0)
[2023-04-03 16:13] LABS: Hepatitis B Surface Antigen NEGATIVE s/c (NEGATIVE)
[2023-04-03 16:14] LABS: Rubella Antibody IgG 12.7 IU/mL (>15)
[2023-04-03 16:23] LABS: HIV 1 & 2 Ab/Ag 4th Gen Combo NEGATIVE (NEGATIVE); Hep C Virus Ab w/Reflex Quant NEGATIVE s/c (NEGATIVE)
[2023-04-03 16:50] LABS: Urine N gonorrhoeae NOT DETECTED
[2023-04-03 16:55] LABS: Urine Chlamydia NOT DETECTED
[2023-04-04 07:57] LABS: RPR Screen Non Reactive (Non Reactive)
[2023-04-04 10:13] LABS: Varicella IgG Antibody 1137 index (Immune >165)
== END ==
PROVIDERS: Referring Provider Obstetrics & Gynecology; Visit Provider Obstetrics & Gynecology
DX: Z34.80 Encounter for supervision of other normal pregnancy, unspecified trimester (principal)
CPT/HCPCS: 36415; 80055; 86787; 86803; 86850; 86900; 86901; 87086; 87389; 87491; 87591

== ENCOUNTER → 2023-06-06 08:08 | Outpatient (CLI) | payer OTHER, SELFPAY ==
--- NOTE | 2023-06-06 08:09 | DI.US.S_ITS ---
PROCEDURE: US OB >= 14 WEEKS FETUS INDICATIONS: 20 WEEK ANATOMY SCAN OUTSIDE/PRIOR DATING DATA: Last menstrual period (LMP): 01/05/2023. LMP-based estimated date of delivery (JUSTYNA): 10/12/2023. First dating scan (date and location): 03/03/2023. Estimated date of delivery (JUSTYNA) from first dating scan: 10/16/2023. The calculations are made using the clinical JUSTYNA of 10/12/2023. TECHNIQUE: Real-time scanning was performed of the fetus, with image documentation and biometric measurements. Endovaginal scanning: Not performed COMPARISON: None. FINDINGS: General: A single living intrauterine gestation is present. Presentation: Vertex. Placenta: Placental position is anterior , without previa. Amniotic fluid index: 10.8 cm, normal range is 5-24 cm. Single deepest vertical pocket is 3.4 cm. heart rate: 144 beats per minute. Maternal cervical canal: 3.8 cm long. Normal lower limit is 2.5 cm. biometrics: Biparietal diameter: 5.0 cm, 21 weeks 1 day Head circumference: 18.8 cm, 21 weeks 1 day Abdominal circumference: 15.8 cm, 20 weeks 6 days Femur length: 3.6 cm, 21 weeks 3 days Clinically estimated gestational age: 21 weeks 5 days Composite gestational age from present scan: 21 weeks 1 day Estimated weight and percentile: 402 g, 18th percentile Anatomic survey: Neuro: Ventricles are non-dilated at less than 10 mm. Cisterna magna is normal at 3-11 mm. Cerebellum is normal in size and morphology. Nuchal skin fold: Normal at less than 6 mm between 14-21 weeks gestational age. Face: Nose and lips, facial profile are normal. Spine: No evidence for spina bifida. Heart: 4-chambered heart is present, with normal ventricular outflow tracts. Diaphragm: Diaphragm is intact. Stomach: Left-sided stomach is present. Kidneys: No hydronephrosis. Normal is less than 5 mm in 2nd trimester, less than 7 mm in 3rd trimester. Cord: 3-vessel cord has orthotopic insertion. Bladder: Normal in size. Extremities: All 4 extremities identified. IMPRESSION: Single living intrauterine at 25 weeks 5 days, JUSTYNA 10/12/2023. Normal anatomy survey. Estimated weight of 402 g, 18th percentile. We strive to produce accurate, complete, and clear reports of imaging services. To assist us in improving patient care, this report was composed using standard report templates and voice recognition software. Therefore, it may contain abnormal punctuation, insertions and/or omissions. Occasional wrong-word or sound-alike substitutions may occur. Though we review the report and make efforts to correct it, we do recommend that the report be read carefully in proper context to recognize any text inaccuracies. Dictated by: Kwan Gross M.D. on 06/06/2023 at 12:38 Approved by: Kwan Gross M.D. on 06/06/2023 at 12:40
== END ==
PROVIDERS: Referring Provider Specialist; Visit Provider Specialist
DX: Z34.02 Encounter for supervision of normal first pregnancy, second trimester (principal); Z3A.20 20 weeks gestation of pregnancy; R82.998 Other abnormal findings in urine
CPT/HCPCS: 76811; 87086

== ENCOUNTER → 2023-06-06 17:00 | Outpatient (CLI) | payer OTHER, SELFPAY | PROVIDERS: Visit Provider Obstetrics & Gynecology | DX: R82.998 Other abnormal findings in urine (principal) | CPT/HCPCS: 87086 ==

== ENCOUNTER → 2023-07-03 14:22 | Outpatient (CLI) | payer OTHER, SELFPAY ==
[2023-07-03 18:01] LABS: Hematocrit 34.3 % (36-46); Hemoglobin 11.9 g/dL (12.0-16.0)
[2023-07-03 18:19] LABS: GTT (PREG) 1 Hour PP 50gm Dose 131 mg/dL (76-139)
== END ==
PROVIDERS: Referring Provider Obstetrics & Gynecology; Visit Provider Obstetrics & Gynecology
DX: Z34.82 Encounter for supervision of other normal pregnancy, second trimester (principal); Z3A.26 26 weeks gestation of pregnancy
CPT/HCPCS: 36415; 82950; 85014; 85018

== ENCOUNTER 2023-07-11 21:47 | Outpatient (CLI) | payer OTHER, SELFPAY ==
[2023-07-11 22:44] VITALS: BP 113/79
--- NOTE | 2023-07-12 13:53 | P.TNLD_ITS ---
Visit Information Visit Information Date of evaluation: 07/11/23 On-call OB Provider: Chaparrita Khan Reason for Evaluation: Yes non-stress test and Yes pre-term labor Comments/Additional reasons for admission: 28yo at 26+1wks called with 4 painful ctx in the last 45min, as well as increased watery discharge today. She otherwise feels movement, and denied any vaginal bleeding. I referred her to L&D for evaluation to r/o labor and PPROM. Vital Signs Vital Signs: BP 113/78; P 78; T 97.9; R 16 PFSH Medical History (Updated 07/12/23 @ 14:05 by Chaparrita Khan DO) Acne (~2017) Substance abuse (~2013) Depression (~2017) Chicken pox (~2001) Painful menstrual periods Ovarian cyst (~2017) Heavy menstrual period GERD (gastroesophageal reflux disease) (~2020) Palpitations (~2021) Anxiety Cardiac arrhythmia (~2021) Migraine with aura (~2017) PTSD (post-traumatic stress disorder) (~2017) Incompetent nasal valve Nasal obstruction Hypertrophy, nasal, turbinate Deviated septum Ruptured ovarian cyst (2017) Rib injury (2019) MRSA (methicillin resistant Staphylococcus aureus) (2014) Anemia Migraine headache Nasal congestion Chronic anxiety Surgical History (Updated 05/01/23 @ 18:54 by Jody Odom) Anesthesia H/O nasal septoplasty (~04/2020) [place] teeth removed (05/06/13) Family History (Updated 03/10/23 @ 10:52 by Subha Lebron RN) Mother Heart valve disease SVT (supraventricular tachycardia) Grandmother SVT (supraventricular tachycardia) Grandfather S/P CABG x 4 Heart disease Father Family estrangement Family/Other Down syndrome Social History marital status: number of children: 0 household members: spouse lives independently: Yes caregiver/support person: Yes housing: apartment pets and animals: Yes (snakes; reviewed precautions) education level: high school occupational status: unemployed current occupational exposures/hazards: No special neel needs: No travel history: recent (domestic only) seatbelt use: always water heater temp set < 120 deg: Yes working smoke detector in home: Yes fire extinguisher in home: Yes carbon monox detector in home: Yes firearms in home: Yes do you feel safe at home: Yes Smoking Status: Former smoker Tobacco: How many years used: 9 alcohol intake: current substance use type: marijuana (advised not to use while /) during the past year weight has: increased > 10 lbs (intentional) well-balanced diet: daily or most days daily servings fruits/ve-4 caffeine: Yes (1 cup coffee in AM) Type(s) of exercise: regular exercise and weight lifting frequency: 3-4 times per week Review of Systems Review of Systems ROS: Yes All systems reviewed with the patient and are negative except as otherwise documented Objective Labs Labs: Amnisure was negative per nursing Evaluation Evaluation Baseline heart rate: 150 Variability: Moderate (11-25) monitor accelerations: Present Monitor Decelerations: Absent Contraction Frequency (minutes): 0 Category of Tracing: Reactive Non-invasive Membranes Rupture Test: negative Diagnosis, Plan/Disposition Final Diagnosis (1) False labor before 37 completed weeks of gestation: Status: Acute (2) Encounter for suspected premature rupture of amniotic membranes, with rupture of membranes not found: Status: Acute Plan/Disposition Plan: 28yo at 26+1wks with reassuring exam in triage. Reactive NST with no contractions felt by patient or recorded on the monitor. Negative Amnisure testing. -return precautions given to pt -f/u in OB clinic as scheduled OB Disposition: home
== END 2023-07-11 22:48 | disposition home or self-care (01) ==
LOC: OB 07-15 13:08
PROVIDERS: Referring Provider Student in an Organized Health Care Education/Training Program; Visit Provider Student in an Organized Health Care Education/Training Program
DX: Z03.71 Encounter for suspected problem with amniotic cavity and membrane ruled out (principal); O47.02 False labor before 37 completed weeks of gestation, second trimester; Z3A.26 26 weeks gestation of pregnancy
CPT/HCPCS: 59025; 84112; G0378; G0379

== ENCOUNTER → 2023-08-01 16:14 | Outpatient (CLI) | payer OTHER, SELFPAY ==
[2023-08-01 17:40] LABS: HEMOLYSIS < 15 (0-50); Iron 55 ug/dL (37-170)
[2023-08-01 17:49] LABS: Percent Iron Saturation 10 % (15-50); Total Iron Binding Capacity 549 ug/dL (265-497); Transferrin 507 mg/dL (206-381)
[2023-08-01 18:20] LABS: Ferritin 5 ng/mL (6-137)
== END ==
PROVIDERS: Referring Provider Obstetrics & Gynecology; Visit Provider Obstetrics & Gynecology
DX: O99.350 Diseases of the nervous system complicating pregnancy, unspecified trimester (principal); G25.81 Restless legs syndrome; R82.998 Other abnormal findings in urine
CPT/HCPCS: 36415; 82728; 83540; 83550; 87086

== ENCOUNTER 2023-08-16 20:50 | Observation (INO) | payer OTHER, SELFPAY ==
[2023-08-16 22:15] LABS: Fetal Fibronectin Negative
[2023-08-16] MEDS: NIFEdipine 10 MG CAPSULE PO ×3 (23:18→23:57)
[2023-08-17] MEDS: NIFEdipine 10 MG CAPSULE PO (00:21)
== END 2023-08-17 01:42 | disposition home or self-care (01) ==
PROVIDERS: Admitting Provider Obstetrics & Gynecology; Referring Provider Obstetrics & Gynecology; Visit Provider Obstetrics & Gynecology
DX: O47.03 False labor before 37 completed weeks of gestation, third trimester (principal); Z3A.31 31 weeks gestation of pregnancy
CPT/HCPCS: 59025; 59050; 82731; G0378; G0379

== ENCOUNTER 2023-08-18 17:22 | Observation (INO) | payer OTHER, SELFPAY ==
[2023-08-18 18:37] LABS: Appearance Urine UA CLEAR; Bilirubin Urine UA NEGATIVE (NEGATIVE); Color Urine UA YELLOW; Glucose Urine UA NEGATIVE (Negative); Ketones Urine UA NEGATIVE (NEGATIVE); Leukocyte Esterase Urine UA 1+ (NEGATIVE); Nitrite Urine UA NEGATIVE (Negative); Occult Blood Urine UA NEGATIVE (Negative); Protein Urine UA NEGATIVE (Negative); Specific Gravity Urine UA <=1.005 (1.000-1.035); Urobilinogen Urine UA 0.2 E.U./dL (0.2)
[2023-08-18 18:39] LABS: pH Urine UA 5.5 (4.5-8.0)
--- NOTE | 2023-08-18 18:39 | DI.US.S_ITS ---
PROCEDURE: US OB >= 14 WEEKS FETUS INDICATIONS: 31 weeks priya since OUTSIDE/PRIOR DATING DATA: Last menstrual period (LMP): 01/05/2023. LMP-based estimated date of delivery (JUSTYNA): 10/12/2023. The calculations are made using the clinical JUSTYNA of 10/12/2023. TECHNIQUE: Real-time scanning was performed of the fetus, with image documentation . Endovaginal scanning: Not performed COMPARISON: [facility], , OB >= 14 WEEKS FETUS, 06/06/2023, 8:39. FINDINGS: General: A single living intrauterine gestation is present. Presentation: Vertex. Placenta: Placental position is anterior , without previa. Amniotic fluid index: 13.4 cm, normal range is 5-24 cm. Single deepest vertical pocket is 4.1 cm. heart rate: 147 beats per minute. Maternal cervical canal: 3.6 cm long. Normal lower limit is 2.5 cm. IMPRESSION: Single living intrauterine at 32 weeks 1 day, JUSTYNA of 10/12/2023. Cervix is long and closed. Normal RAPHAEL. We strive to produce accurate, complete, and clear reports of imaging services. To assist us in improving patient care, this report was composed using standard report templates and voice recognition software. Therefore, it may contain abnormal punctuation, insertions and/or omissions. Occasional wrong-word or sound-alike substitutions may occur. Though we review the report and make efforts to correct it, we do recommend that the report be read carefully in proper context to recognize any text inaccuracies. Dictated by: Kwan Gross M.D. on 08/18/2023 at 19:44 Approved by: Kwan Gross M.D. on 08/18/2023 at 19:46
[2023-08-18 18:50] LABS: RBC Urine 0-1/HPF (0-5/HPF)
[2023-08-18 18:51] LABS: Bacteria Urine Few (2-10); Culture Indicated Urine Specimen Cultured; Squamous Epithelial Cell Urine 0-1 /HPF (0-5/HPF); WBC Urine 1-5/HPF (0-5/HPF)
[2023-08-18] MEDS: CEFAZOLIN 1 GM VIAL IM (19:54)
[2023-08-18] MEDS: TERBUTALINE 1 MG/ML VIAL 0.25 MG SUBCUT (20:14)
[2023-08-18 20:36] LABS: Urine N gonorrhoeae NOT DETECTED
[2023-08-18 21:10] LABS: Urine Chlamydia NOT DETECTED
== END 2023-08-18 21:21 | disposition home or self-care (01) ==
LOC: LABOR 17:23
PROVIDERS: Admitting Provider Obstetrics & Gynecology; Referring Provider Obstetrics & Gynecology; Visit Provider Obstetrics & Gynecology
DX: O60.03 Preterm labor without delivery, third trimester (principal); Z3A.31 31 weeks gestation of pregnancy
CPT/HCPCS: 59025; 59050; 76811; 81001; 87086; 87491; 87591; G0378; G0379; J0690

== ENCOUNTER 2023-08-20 01:48 | Observation (INO) | payer OTHER, SELFPAY ==
--- NOTE | 2023-08-20 01:52 | DI.US.S_ITS ---
PROCEDURE: US OB BIOPHYSICAL PROFILE INDICATIONS: CONTRACTIONS OUTSIDE/PRIOR DATING DATA: Last menstrual period (LMP): 01/05/2023. LMP-based estimated date of delivery (JUSTYNA): 10/12/2023. First dating scan (date and location): 03/03/2023. Estimated date of delivery (JUSTYNA) from first dating scan: 10/16/2023. The calculations are made using the clinical JUSTYNA of 10/12/2023. TECHNIQUE: Real-time scanning was performed of the fetus for biophysical profile, with image documentation. COMPARISON: [facility], , OB >= 14 WEEKS FETUS, 08/18/2023, 19:14. FINDINGS: General: A single living intrauterine gestation is present. Presentation: Vertex. Placenta: Placental position is anterior, without previa. Amniotic fluid index: 10.5 cm, normal range is 5-24 cm. Single deepest vertical pocket is 3.1 cm. heart rate: 158 beats per minute. Maternal cervical canal: 3.8 cm long. Normal lower limit is 2.5 cm. No funneling. Clinically estimated gestational age: 32 weeks 3 days Biophysical profile: Tone: 2 points. Movement: 2 points. Respiration: 2 points. Largest pocket of fluid: 2 points. IMPRESSION: 1. Crane living intrauterine at 32 weeks 3 days based on prior dating. 2. Normal placenta and amniotic fluid. 3. Normal biophysical profile. Score 8/8. This report is concordant with the overnight preliminary interpretation. We strive to produce accurate, complete, and clear reports of imaging services. To assist us in improving patient care, this report was composed using standard report templates and voice recognition software. Therefore, it may contain abnormal punctuation, insertions and/or omissions. Occasional wrong-word or sound-alike substitutions may occur. Though we review the report and make efforts to correct it, we do recommend that the report be read carefully in proper context to recognize any text inaccuracies. Dictated by: Edis Nix M.D. on 08/20/2023 at 8:38 Approved by: Edis Nix M.D. on 08/20/2023 at 8:42
[2023-08-20] MEDS: hydrOXYzine pamoate 25 MG CAPSULE PO (03:17)
[2023-08-20] MEDS: LACTATED RINGERS 1,000 ML 1000 ML IV (03:18)
--- NOTE | 2023-08-20 09:49 | PM.OBTRLD ---
Visit Information Visit Information Date of evaluation: 08/20/23 Primary OB Provider: Jefry Flores On-call OB Provider: Marissa Lopez Reason for Evaluation: Yes rule out labor Comments/Additional reasons for admission: Patient presented for contractions that have been ongoing for past two nights. She was seen on Aug 18 and diagnosed with UTI. At that time she was given a dose of ancef in the hospital and prescribed oral antibiotics that she has not picked up. She was also given a dose of terbutaline. She reports contractions have returned and occur every 5 minutes. Vital Signs Vital Signs: BP 115/73 P 102 T 36.4 [facility] Medical History (Updated 08/01/23 @ 16:02 by Jefry Flores MD) Acne (~2017) Substance abuse (~2013) Depression (~2017) Chicken pox (~2001) Painful menstrual periods Ovarian cyst (~2017) Heavy menstrual period GERD (gastroesophageal reflux disease) (~2020) Palpitations (~2021) Anxiety Cardiac arrhythmia (~2021) Migraine with aura (~2017) PTSD (post-traumatic stress disorder) (~2017) Incompetent nasal valve Nasal obstruction Hypertrophy, nasal, turbinate Deviated septum Ruptured ovarian cyst (2017) Rib injury (2019) MRSA (methicillin resistant Staphylococcus aureus) (2014) Anemia Migraine headache Nasal congestion Chronic anxiety Surgical History (Updated 05/01/23 @ 18:54 by Jody Odom) Anesthesia H/O nasal septoplasty (~04/2020) Ages [place] teeth removed (05/06/13) Family History (Updated 03/10/23 @ 10:52 by Subha Lebron RN) Mother Heart valve disease SVT (supraventricular tachycardia) Grandmother SVT (supraventricular tachycardia) Grandfather S/P CABG x 4 Heart disease Father Family estrangement Family/Other Down syndrome Social History marital status: number of children: 0 household members: spouse lives independently: Yes caregiver/support person: Yes housing: apartment pets and animals: Yes (snakes; reviewed precautions) education level: high school occupational status: unemployed current occupational exposures/hazards: No special neel needs: No travel history: recent (domestic only) seatbelt use: always water heater temp set < 120 deg: Yes working smoke detector in home: Yes fire extinguisher in home: Yes carbon monox detector in home: Yes firearms in home: Yes do you feel safe at home: Yes Smoking Status: Former smoker Tobacco: How many years used: 9 alcohol intake: current substance use type: marijuana (advised not to use while /) during the past year weight has: increased > 10 lbs (intentional) well-balanced diet: daily or most days daily servings fruits/ve-4 caffeine: Yes (1 cup coffee in AM) Type(s) of exercise: regular exercise and weight lifting frequency: 3-4 times per week Evaluation Evaluation Baseline heart rate: 145 Variability: Average (6-10) monitor accelerations: Present Monitor Decelerations: Absent Uterine Contraction Intensity: Mild Category of Tracing: Reactive Status: Category l Comments: Uterine irritability. Diagnosis, Plan/Disposition Plan/Disposition Plan: Given 1L fluid bolus and 50 mg hydroxyzine with resolution of symptoms. Cervical length 3.8cm. BPP 8/8. NST reactive and cat 1. Recommend full course of oral antibiotics for UTI and outpatient follow up with primary OB. OB Disposition: home
== END 2023-08-20 04:17 | disposition home or self-care (01) ==
LOC: LABOR 01:49
PROVIDERS: Admitting Provider Student in an Organized Health Care Education/Training Program; PCP Nurse Practitioner Family; Referring Provider Student in an Organized Health Care Education/Training Program; Visit Provider Student in an Organized Health Care Education/Training Program
DX: O60.03 Preterm labor without delivery, third trimester (principal); O23.43 Unspecified infection of urinary tract in pregnancy, third trimester; N39.0 Urinary tract infection, site not specified; Z3A.31 31 weeks gestation of pregnancy
CPT/HCPCS: 59025; 59050; 76817; 76819; 96360; G0378; G0379

== ENCOUNTER → 2023-08-22 17:00 | Outpatient (CLI) | payer SELFPAY | PROVIDERS: PCP Nurse Practitioner Family; Visit Provider Obstetrics & Gynecology | DX: R82.998 Other abnormal findings in urine (principal) | CPT/HCPCS: 87086 ==

== ENCOUNTER → 2023-09-03 08:24 | Outpatient (CLI) | payer OTHER, SELFPAY ==
[2023-09-03 10:17] LABS: Alanine Aminotransferase 105 IU/L (<35); Albumin 3.1 g/dL (3.5-5.0); Alkaline Phosphatase 214 U/L (38-126); Aspartate Aminotransferase 84 IU/L (14-36); Bilirubin Total 0.7 mg/dL (0.2-1.3); Calcium 9.5 mg/dL (8.4-10.2); Carbon Dioxide 24 mmol/L (22-32); Chloride 102 mmol/L (98-107); Estimated Glomerular Filt Rate > 60 mL/min (>60); Globulin 3.1 g/dL (1.7-4.1); Glucose 79 mg/dL (70-100); HEMOLYSIS < 15 (0-50); Sodium 135 mmol/L (137-145); Total Protein 6.2 g/dL (6.3-8.2)
[2023-09-03 10:19] LABS: Blood Urea Nitrogen 2 mg/dL (7-17)
[2023-09-05 10:26] LABS: Bile Acids 111.7 umol/L (0.0-10.0)
== END ==
PROVIDERS: Referring Provider Student in an Organized Health Care Education/Training Program; Visit Provider Student in an Organized Health Care Education/Training Program
DX: L29.9 Pruritus, unspecified (principal); O99.719 Diseases of the skin and subcutaneous tissue complicating pregnancy, unspecified trimester
CPT/HCPCS: 36415; 80053; 82239

== ENCOUNTER 2023-09-05 13:02 | Outpatient (CLI) | payer OTHER, SELFPAY ==
--- NOTE | 2023-09-05 13:46 | P.TNLD_ITS ---
Visit Information Visit Information Date of evaluation: 09/05/23 Primary OB Provider: Jefry Flores On-call OB Provider: Michelle Moses Reason for Evaluation: Yes non-stress test Comments/Additional reasons for admission: Cholestasis in Vital Signs Vital Signs: Blood pressure 116/83, pulse of 93, temperature 36.3? [facility] Medical History (Updated 09/05/23 @ 14:00 by Michelle Moses MD) Acne (~2017) Substance abuse (~2013) Depression (~2017) Chicken pox (~2001) Painful menstrual periods Ovarian cyst (~2017) Heavy menstrual period GERD (gastroesophageal reflux disease) (~2020) Palpitations (~2021) Anxiety Cardiac arrhythmia (~2021) Migraine with aura (~2017) PTSD (post-traumatic stress disorder) (~2017) Incompetent nasal valve Nasal obstruction Hypertrophy, nasal, turbinate Deviated septum Ruptured ovarian cyst (2017) Rib injury (2019) MRSA (methicillin resistant Staphylococcus aureus) (2014) Anemia Migraine headache Nasal congestion Chronic anxiety Surgical History (Updated 05/01/23 @ 18:54 by Jody Odom) Anesthesia H/O nasal septoplasty (~04/2020) [place] teeth removed (05/06/13) Family History (Updated 03/10/23 @ 10:52 by Subha Lebron RN) Mother Heart valve disease SVT (supraventricular tachycardia) Grandmother SVT (supraventricular tachycardia) Grandfather S/P CABG x 4 Heart disease Father Family estrangement Family/Other Down syndrome Social History marital status: number of children: 0 household members: spouse lives independently: Yes caregiver/support person: Yes housing: apartment pets and animals: Yes (snakes; reviewed precautions) education level: high school occupational status: unemployed current occupational exposures/hazards: No special neel needs: No travel history: recent (domestic only) seatbelt use: always water heater temp set < 120 deg: Yes working smoke detector in home: Yes fire extinguisher in home: Yes carbon monox detector in home: Yes firearms in home: Yes do you feel safe at home: Yes Smoking Status: Former smoker Tobacco: How many years used: 9 alcohol intake: current substance use type: marijuana (advised not to use while /) during the past year weight has: increased > 10 lbs (intentional) well-balanced diet: daily or most days daily servings fruits/ve-4 caffeine: Yes (1 cup coffee in AM) Type(s) of exercise: regular exercise and weight lifting frequency: 3-4 times per week Evaluation Evaluation Baseline heart rate: 130 Variability: Moderate (11-25) monitor accelerations: Present Monitor Decelerations: Absent Contraction Frequency (minutes): 0 Category of Tracing: Reactive Status: Category l Diagnosis, Plan/Disposition Final Diagnosis (1) 34 weeks gestation of : Status: Acute (2) pruritus: Status: Acute Plan/Disposition Plan: Reactive nonstress test. Continue weekly nonstress test and office visits. OB Disposition: home
== END 2023-09-05 13:52 | disposition home or self-care (01) ==
LOC: LABOR 13:05 → OB 09-09 11:24
PROVIDERS: Referring Provider Obstetrics & Gynecology; Visit Provider Obstetrics & Gynecology
DX: O26.893 Other specified pregnancy related conditions, third trimester (principal); L29.9 Pruritus, unspecified; Z3A.34 34 weeks gestation of pregnancy
CPT/HCPCS: 59025; G0378; G0379

== ENCOUNTER → 2023-09-09 11:15 | Outpatient (CLI) | payer OTHER, SELFPAY ==
[2023-09-09 13:40] LABS: Alanine Aminotransferase 45 IU/L (<35); Albumin 3.3 g/dL (3.5-5.0); Albumin Globulin Ratio 0.9 (1.0-2.8); Alkaline Phosphatase 147 U/L (38-126); Aspartate Aminotransferase 24 IU/L (14-36); Bilirubin Total 0.5 mg/dL (0.2-1.3); Bilirubin Unconjugated 0.1 mg/dL (0.0-1.1); Globulin 3.5 g/dL (1.7-4.1); HEMOLYSIS < 15 (0-50); Total Protein 6.8 g/dL (6.3-8.2)
[2023-09-10 11:36] LABS: Bile Acids 18.3 umol/L (0.0-10.0)
== END ==
PROVIDERS: Referring Provider Obstetrics & Gynecology; Visit Provider Obstetrics & Gynecology
DX: O99.713 Diseases of the skin and subcutaneous tissue complicating pregnancy, third trimester (principal); L29.9 Pruritus, unspecified; Z3A.34 34 weeks gestation of pregnancy; O47.03 False labor before 37 completed weeks of gestation, third trimester
CPT/HCPCS: 36415; 80076; 82239

== ENCOUNTER 2023-09-11 14:12 | Outpatient (CLI) | payer OTHER, SELFPAY ==
[2023-09-13 08:11] LABS: Strep Grp B PCR NEG for Grp B Strep
== END 2023-09-11 15:07 | disposition home or self-care (01) ==
LOC: LAB 14:13 → LABOR 14:28
PROVIDERS: Referring Provider Obstetrics & Gynecology; Visit Provider Obstetrics & Gynecology
DX: Z34.03 Encounter for supervision of normal first pregnancy, third trimester (principal)
CPT/HCPCS: 59025; 87653; G0378

== ENCOUNTER 2023-09-12 12:20 | Outpatient (CLI) | payer OTHER, SELFPAY | END 2023-09-12 13:04 | disposition home or self-care (01) | LOC: LABOR 12:43 → OB 09-15 06:49 | PROVIDERS: Referring Provider Obstetrics & Gynecology; Visit Provider Obstetrics & Gynecology | DX: O26.23 Pregnancy care for patient with recurrent pregnancy loss, third trimester (principal); Z3A.35 35 weeks gestation of pregnancy | CPT/HCPCS: 59025; G0378; G0379 ==

== ENCOUNTER → 2023-09-19 16:03 | Outpatient (CLI) | payer OTHER, SELFPAY ==
[2023-09-19 18:09] LABS: Alanine Aminotransferase 14 IU/L (<35); Albumin 3.4 g/dL (3.5-5.0); Alkaline Phosphatase 140 U/L (38-126); Aspartate Aminotransferase 21 IU/L (14-36); BUN Creatinine Ratio 9.5 (6-22); Bilirubin Total 0.5 mg/dL (0.2-1.3); Blood Urea Nitrogen 4 mg/dL (7-17); Calcium 8.9 mg/dL (8.4-10.2); Carbon Dioxide 19 mmol/L (22-32); Chloride 104 mmol/L (98-107); Estimated Glomerular Filt Rate > 60 mL/min (>60); Globulin 3.4 g/dL (1.7-4.1); Glucose 108 mg/dL (70-100); HEMOLYSIS < 15 (0-50); Potassium 3.4 mmol/L (3.4-5.1); Sodium 134 mmol/L (137-145); Total Protein 6.8 g/dL (6.3-8.2)
[2023-09-23 11:13] LABS: Bile Acids 4.1 umol/L (0.0-10.0)
== END ==
PROVIDERS: Referring Provider Obstetrics & Gynecology; Visit Provider Obstetrics & Gynecology
DX: O26.643 Intrahepatic cholestasis of pregnancy, third trimester (principal)
CPT/HCPCS: 36415; 80053; 82239

== ENCOUNTER 2023-09-19 16:31 | Outpatient (CLI) | payer OTHER, SELFPAY | END 2023-09-19 17:08 | disposition home or self-care (01) | LOC: LABOR 17:03 → OB 09-22 06:06 | PROVIDERS: Referring Provider Obstetrics & Gynecology; Visit Provider Obstetrics & Gynecology | DX: O26.643 Intrahepatic cholestasis of pregnancy, third trimester (principal); Z3A.36 36 weeks gestation of pregnancy | CPT/HCPCS: 36415; 59025; 80053; 82239; G0378; G0379 ==

== ENCOUNTER 2023-09-25 19:28 | Inpatient (IN) | payer OTHER, SELFPAY ==
--- NOTE | 2023-09-25 19:59 | P.HPOB_ITS ---
OB HPI Date/Time Date of admission: 09/25/23 Date Patient Seen: 09/26/23 Time Patient Seen: 08:00 History of Present Condition Chief complaint: IUP, 37+0 EGA, ICP, GBS neg, ripening/induction : 4 Para: 0 Estimated Date of Delivery: 10/16/23 Estimated Gestational Age (weeks): 37+0 Narrative: Miquel Amor is a 28 year old admitted now at 37+ 0 weeks gestational age for ripening/induction due to intrahepatic cholestasis of diagnosed at 33 weeks gestational age. Upon diagnosis the patient had marked elevation of her bile acids to 111 and elevation of both AST and ALT. Treatment with ursodiol 300 mg p.o. t.i.d. as resolve those laboratory abnormalities and weekly antepartum testing has been reassuring. course is largely been uneventful otherwise with solid early dating and appropriate milestones throughout. GBS is negative. Indications Indication for induction OB: other (Intrahepatic cholestasis of ) History of Present care: good care Dating criteria: LMP confirmed by 1st trimester US Ultrasounds: normal 1st trimester US and normal mid trimester US Obstetrical complications: other (Intrahepatic cholestasis of ) Medical complications: none Preadmission Labs Blood type: A (+) positive -: Antibody screen: negative, GBS status: negative, HBsAG: negative, HIV: negative and RPR/VDLR: negative -: Chlamydia screen: not detected and Gonorrhea screen: not detected -: Rubella: immune and Varicella: immune HCT: 30.9 HCAB: negative PAP: Normal Cell-free DNA: Low risk female 1 hr GTT: 131 Prior (ies) History: [facility] x3 Evaluation Evaluation Baseline heart rate: 130 Variability: Moderate (11-25) monitor accelerations: Present Monitor Decelerations: Absent Contraction Frequency (minutes): 2 Uterine Contraction Intensity: Moderate Category of Tracing: Reactive Status: Category l Dilation (cm): 1.5 Effacement (%): 75 Dilation: 1-2 cm Effacement: 60-70% station: -1 Position of cervix: mid Consistency: soft Hernandez score: 8 [facility] Medical History (Updated 09/19/23 @ 16:03 by Jefry Flores MD) Acne (~2017) Substance abuse (~2013) Depression (~2017) Chicken pox (~2001) Painful menstrual periods Ovarian cyst (~2017) Heavy menstrual period GERD (gastroesophageal reflux disease) (~2020) Palpitations (~2021) Anxiety Cardiac arrhythmia (~2021) Migraine with aura (~2017) PTSD (post-traumatic stress disorder) (~2017) Incompetent nasal valve Nasal obstruction Hypertrophy, nasal, turbinate Deviated septum Ruptured ovarian cyst (2017) Rib injury (2019) MRSA (methicillin resistant Staphylococcus aureus) (2014) Anemia Migraine headache Nasal congestion Chronic anxiety Surgical History (Updated 05/01/23 @ 18:54 by Jody Odom) Anesthesia H/O nasal septoplasty (~04/2020) [place] teeth removed (05/06/13) Family History (Updated 03/10/23 @ 10:52 by Subha Lebron RN) Mother Heart valve disease SVT (supraventricular tachycardia) Grandmother SVT (supraventricular tachycardia) Grandfather S/P CABG x 4 Heart disease Father Family estrangement Family/Other Down syndrome Social History marital status: number of children: 0 household members: spouse lives independently: Yes caregiver/support person: Yes housing: apartment pets and animals: Yes (snakes; reviewed precautions) education level: high school occupational status: unemployed current occupational exposures/hazards: No special neel needs: No travel history: recent (domestic only) seatbelt use: always water heater temp set < 120 deg: Yes working smoke detector in home: Yes fire extinguisher in home: Yes carbon monox detector in home: Yes firearms in home: Yes do you feel safe at home: Yes Smoking Status: Former smoker Tobacco: How many years used: 9 alcohol intake: current substance use type: marijuana (advised not to use while /) during the past year weight has: increased > 10 lbs (intentional) well-balanced diet: daily or most days daily servings fruits/ve-4 caffeine: Yes (1 cup coffee in AM) Type(s) of exercise: regular exercise and weight lifting frequency: 3-4 times per week Meds Home Medications and Allergies Home Medications Medication Instructions Recorded Confirmed Type [id number] 400 mcg-om3 35 mg-dha 25 See Rx Instructions .Route .COMPLEX 03/10/23 09/25/23 History mg-epa 5 mg-fish oil chewable tablet dimenhydrinate 50 mg tablet 50 mg PO BID PRN nausea and 03/10/23 09/19/23 History (Dramamine) vomiting buspirone 15 mg tablet 15 mg PO TID #90 tabs 03/18/23 09/19/23 Rx ondansetron 8 mg disintegrating 8 mg PO Q8H #90 tabs 03/18/23 09/25/23 Rx tablet prochlorperazine maleate 10 mg 10 mg PO Q8H PRN nausea and 03/18/23 09/19/23 Rx tablet (Compazine) vomiting #30 tabs bupropion HCl 150 mg 24 hr tablet, 150 mg PO QAM #30 tabs 06/06/23 09/25/23 Rx extended release (Wellbutrin XL) clonazepam 0.5 mg tablet 0.5 mg PO BEDTIME PRN Restless leg 08/01/23 09/25/23 Rx syndrome #30 tabs nifedipine 30 mg tablet,extended 30 mg PO BID #180 tabs 08/26/23 09/25/23 Rx release ursodiol 300 mg capsule 300 mg PO TID #30 caps 09/03/23 09/19/23 Rx hydroxyzine HCl 25 mg tablet 25 mg PO 4XD PRN for itch #30 tabs 09/12/23 09/25/23 Rx Allergies Allergy/AdvReac Type Severity Reaction Status Date / Time latex Allergy Intermediate Hives Verified 09/19/23 15:38 promethazine AdvReac Severe Vomiting Verified 09/19/23 15:38 Review of Systems Review of Systems ROS: Yes All systems reviewed with the patient and are negative except as otherwise documented OB Exam Vital signs Blood Pressure: 111/65 Pulse Rate: 80 Respiratory Rate: 17 Temperature: 97.7 F [facility] Head: normal to inspection, normocephalic and atraumatic Eyes General: appearance normal, both eyes and all related structures Resp Effort & Inspection: normal respiratory effort and able to speak in complete sentences Auscultation: clear to auscultation bilaterally Cardio Rate: regular rate Rhythm: regular rhythm Heart Sounds: S1 normal, S2 normal and no murmurs Extremities Lower extremity: Yes normal to inspection GI Inspection: normal to inspection Palpation: Yes soft and Yes no hepatosplenomegaly Uterus Location (Fundal Height): 36 Estimated Weight (lbs): 7 Objective Labs 09/25/23 20:35 Assessment and Plan Assessment and Plan Assessment and Plan narrative: ASSESSMENT 1. Intrauterine , 37+ 0 weeks gestational age 2. Intrahepatic cholestasis of 3. Chronic anemia 4. GBS negative status PLAN 1. Admit for cervical ripening and induction 2. See admission orders
[2023-09-25 20:54] LABS: Add Manual Diff / Slide Review NO; Basophils Absolute Auto 0 /uL (0-100); Basophils Percent Auto 0.4 % (0-2); Eosinophils Absolute Auto 0 /uL (0-450); Eosinophils Percent Auto 0.4 % (2-4); Hematocrit 30.9 % (36-46); Hemoglobin 10.3 g/dL (12.0-16.0); Lymphocytes Absolute Auto 1700 /uL (1100-4500); Lymphocytes Percent Auto 15.8 % (25-40); Mean Corpuscular HGB Conc 33.4 % (30-36); Mean Corpuscular Hemoglobin 26.7 PG (26-34); Mean Corpuscular Volume 79.8 fL (80-100); Monocytes Absolute Auto 900 /uL (0-900); Monocytes Percent Auto 8.8 % (3-14); Neutrophils Absolute Auto 8000 /uL (1500-7000); Neutrophils Percent Auto 74.6 % (50-75); Platelet Count 176 X10^3/uL (150-400); Red Blood Cell Count 3.87 X10^6/uL (4.0-5.2); White Blood Cell Count 10.7 X10^3/uL (4.5-11.0)
[2023-09-25] MEDS: miSOPROStoL 25 MCG TABLET 50 MCG PO (21:28)
[2023-09-26] MEDS: hydrOXYzine HCL 25 MG TABLET PO ×2 (00:05→08:47)
[2023-09-26] MEDS: ZOLPIDEM 5 MG TABLET PO (00:05)
[2023-09-26 00:32] VITALS: BP 111/65
[2023-09-26] MEDS: miSOPROStoL 25 MCG TABLET 50 MCG PO (01:50)
[2023-09-26] MEDS: buPROPion XL 150 MG TAB PO (08:47)
[2023-09-26] MEDS: ursodioL 300 MG CAPSULE PO ×2 (08:48→17:30)
[2023-09-26] MEDS: OXYTOCIN PREMIX 30 UNIT/500 ML PLAST..BAG IV (09:38)
[2023-09-26] MEDS: LACTATED RINGERS 1,000 ML 125 ML IV ×2 (09:38→22:11)
[2023-09-26 10:08] VITALS: BP 111/65; PULSE 80; RESP 17; TEMP 36.5
--- NOTE | 2023-09-26 13:00 | PM.OBPNLAB ---
Date/Time Date Patient Seen: 09/26/23 Time Patient Seen: 12:30 Pain Control Pain control: tolerating well Pelvic Exam Dilation (cm): 1.5 Effacement (%): 75 station: -1 Amniotic membrane status: Intact Contractions Contractions on admission: none Monitor mode: External Pitocin rate (mU/min): 5 Contraction pattern: Regular Contraction intensity: Moderate Status status: Category l Heart Rate Baseline: 145 Monitor Accelerations: Present Monitor Decelerations: Absent Monitor Variability: Moderate Assessment and Plan Assessment: induction ongoing Plan: continuous present management Comments: Will perform AROM once demonstrable change in dilation has occured.
[2023-09-26] MEDS: ONDANSETRON 4 MG/2 ML INJ IV (14:45)
--- NOTE | 2023-09-26 14:54 | P.PCN_ITS ---
Regional Block Pre-procedure Procedure: Continuous Lumbar Epidural for L&D Attending OB provider: Jefry Flores PMH/ROS narrative: 28yo 37w1d gestation female with history of 2 miscarriages and one termination. Hx: No personal or family history of anesthesia problems. PSH/Anesthesia history narrative: No significant PSH ASA Class: III Labs: Hct 30.9 % (36-46) L 09/25/23 20:35 Plt Count 176 X10^3/uL (150-400) 09/25/23 20:35 Medications: Current Medications Generic Name Dose Route Start Last Admin Trade Name Freq PRN Reason Stop Dose Admin Bupropion HCl 150 mg 09/26/23 09:00 09/26/23 08:47 Bupropion Xl 150 Mg Tab PO 150 mg DAILY JUSTINE Administration Buspirone HCl 15 mg 09/25/23 21:00 09/26/23 08:46 Buspirone 5 Mg Tablet PO Not Given TID JUSTINE Calcium Carbonate 1,000 mg 09/25/23 19:54 Calcium Carbonate 500 Mg Tab PO Q4HR PRN Dyspepsia Carboprost Tromethamine 250 mcg 09/25/23 19:50 Carboprost 250 Mcg/Ml Ampul IM Q90M PRN Bleeding Clonazepam 0.5 mg 09/25/23 20:07 Clonazepam 0.5 Mg Tablet PO BEDTIME PRN Restless leg syndrome Diphenhydramine HCl 25 mg 09/26/23 14:51 Diphenhydramine 50 Mg/Ml Vial IV Q10M PRN Pruritis Ephedrine Sulfate 5 mg 09/26/23 14:51 Ephedrine 50 Mg/Ml Vial IV Q5M PRN Blood pressure decrease more than 20% of baseline. Fentanyl 50 mcg 09/25/23 19:54 Fentanyl 100 Mcg/2 Ml Inj IV Q1H PRN Pain, Moderate (4-6) Hydroxyzine HCl 25 mg 09/25/23 20:07 09/26/23 08:47 Hydroxyzine Hcl 25 Mg Tablet PO 25 mg QID PRN Administration Itching Oxytocin/Lactated Ringer's 30 unit in 500 mls @ 200 mls/hr 09/25/23 19:50 Oxytocin Premix IV CONT PRN Bleeding Protocol Tranexamic Acid 1,000 mg/ 100 mls @ 200 mls/hr 09/25/23 19:50 Sodium Chloride IV NOW PRN Bleeding Lactated Ringer's 1,000 mls @ 100 mls/hr 09/25/23 20:00 09/26/23 09:38 Lactated Ringers IV 125 mls/hr CONT JUSTINE Administration Oxytocin/Lactated Ringer's 30 unit in 500 mls @ 2 mls/hr 09/26/23 09:13 09/26/23 09:38 Oxytocin Premix IV 2 milliunit/min TITRATE JUSTINE 2 mls/hr Administration Protocol 2 MILLIUNIT/MIN FENT 2MCG/ML BUPIV 0.125% EPI 200 mcg in 100 mls @ 6 mls/hr 09/26/23 15:00 Fentanyl/Bupiv/Ns 2mcg/Ml - 0.125% EPIDURAL CONT JUSTINE Lidocaine HCl 20 ml 09/25/23 19:50 Lidocaine 1% 20 Ml INJ INTRA-OP PRN Post Delivery Methylergonovine Maleate 0.2 mg 09/25/23 19:50 Methylergonovine 0.2 Mg Tablet PO Q6HR PRN Heavy Bleeding Methylergonovine Maleate 0.2 mg 09/25/23 19:50 Methylergonovine 0.2 Mg/Ml Vial IM NOW PRN Bleeding Misoprostol 800 mcg 09/25/23 19:50 Misoprostol 200 Mcg Tablet WA NOW PRN Bleeding Misoprostol 400 mcg 09/25/23 19:50 Misoprostol 200 Mcg Tablet SL NOW PRN Bleeding Misoprostol 50 mcg 09/25/23 20:00 09/26/23 01:50 Misoprostol 25 Mcg Tablet PO 50 mcg Q4H JUSTINE Administration Nalbuphine HCl 2.5 mg 09/26/23 14:51 Nalbuphine 20 Mg/Ml Ampul IV Q10M PRN Pruritis Naloxone HCl 0.2 mg 09/25/23 19:50 Naloxone 0.4 Mg/Ml Vial IV Q2MIN PRN Opiate Reversal Ondansetron HCl 4 mg 09/25/23 19:54 09/26/23 14:45 Ondansetron 4 Mg/2 Ml Inj IV 4 mg Q4HR PRN Administration Nausea And Vomiting Oxytocin 10 unit 09/25/23 19:50 Oxytocin 10 Unit/Ml Vial IM NOW PRN Bleeding Ursodiol 300 mg 09/25/23 21:00 09/26/23 08:48 Ursodiol 300 Mg Capsule PO 300 mg TID JUSTINE Administration Zolpidem Tartrate 5 mg 09/25/23 19:54 09/26/23 00:05 Zolpidem 5 Mg Tablet PO 5 mg BEDTIME PRN Administration Sleep Allergies: Allergies Allergy/AdvReac Type Severity Reaction Status Date / Time latex Allergy Intermediate Hives Verified 09/19/23 15:38 promethazine AdvReac Severe Vomiting Verified 09/19/23 15:38 Procedure Insertion date: 09/26/23 Insertion time: 14:09 Prep/Local: betadine x3 and 1% lidocaine Interspace: L3-L4 Patient position: sitting Needle: 18 gauge Hustead Loss of resistance with: saline (+Air) RY at (cm): 7 Catheter placed at SKIN (cm): 14 Catheter in SPACE (cm): 7 Insertion: No CSF, No Blood, No Paresthesia with insertion, No Paresthesia with injection and No Test dose reaction Initial Medications TEST DOSE time: 14:10 BOLUS DOSE time: 14:16 BOLUS DOSE (mL): 7 BOLUS DOSE med: other (2% Lidocaine) Infusion INFUSION: 0.125% bupivacaine and with fentanyl 2 mcg/mL Initial rate (mL/hr): 6 Subsequent interventions: Continuous rate: 6ml/hr; PCEA dose: 5ml; Lockout: 20; 1hr limit: 21ml. Post-procedure Anesthesia date START: 09/26/23 Anesthesia time START: 14:01 Anesthesia date END: 09/27/23 Anesthesia time END: 00:17 Post-procedure Anesthesia Assessment: Yes CV function: HR/BP stable, Yes Resp function: RR/sat/airway adequate, Yes Post-op hydration adequate, Yes Pain control adequate, Yes Nausea & vomiting absent, Yes Temperature > 36 C, Yes Me ntal status appropriate and No Anesthesia complications
[2023-09-26] MEDS: FENT 2MCG/ML BUPIV 0.125% EPI 200 MCG/100 ML PLAST..BAG 6 MCG EPIDURAL (20:23)
--- NOTE | 2023-09-26 21:06 | PM.PN.1 ---
Subjective Subjective Interval history: 0830: Called to room for pt having increased pain in perineal region. Block assessed at T8 Bilateral. All pain concentrated in butt region with contractions 7/10. Bolus dose of 5 mL 1.5% lido with epi given and pump rate increased, pt encouraged to sit up to allow spread down. 0900: Pt states pain no different than previous. Had discussion with pt that pressure in this area can be hard to treat with the epidural if head was in certain position. Another 3mL of 1.5% lido with epi given along with 100 mcg Fentanyl. Objective Labs 09/25/23 20:35 Labs: Laboratory Results - last 24 hr 09/25/23 20:35 Blood Type A Positive Antibody Screen Negative [facility] Medical History (Updated 09/19/23 @ 16:03 by Jefry Flores MD) Acne (~2017) Substance abuse (~2013) Depression (~2017) Chicken pox (~2001) Painful menstrual periods Ovarian cyst (~2017) Heavy menstrual period GERD (gastroesophageal reflux disease) (~2020) Palpitations (~2021) Anxiety Cardiac arrhythmia (~2021) Migraine with aura (~2017) PTSD (post-traumatic stress disorder) (~2017) Incompetent nasal valve Nasal obstruction Hypertrophy, nasal, turbinate Deviated septum Ruptured ovarian cyst (2017) Rib injury (2019) MRSA (methicillin resistant Staphylococcus aureus) (2014) Anemia Migraine headache Nasal congestion Chronic anxiety Surgical History (Updated 05/01/23 @ 18:54 by Jody Odom) Anesthesia H/O nasal septoplasty (~04/2020) [place] teeth removed (05/06/13) Family History (Updated 03/10/23 @ 10:52 by Subha Lebron RN) Mother Heart valve disease SVT (supraventricular tachycardia) Grandmother SVT (supraventricular tachycardia) Grandfather S/P CABG x 4 Heart disease Father Family estrangement Family/Other Down syndrome Social History marital status: number of children: 0 household members: spouse lives independently: Yes caregiver/support person: Yes housing: apartment pets and animals: Yes (snakes; reviewed precautions) education level: high school occupational status: unemployed current occupational exposures/hazards: No special neel needs: No travel history: recent (domestic only) seatbelt use: always water heater temp set < 120 deg: Yes working smoke detector in home: Yes fire extinguisher in home: Yes carbon monox detector in home: Yes firearms in home: Yes do you feel safe at home: Yes Smoking Status: Former smoker Tobacco: How many years used: 9 alcohol intake: current substance use type: marijuana (advised not to use while /) during the past year weight has: increased > 10 lbs (intentional) well-balanced diet: daily or most days daily servings fruits/ve-4 caffeine: Yes (1 cup coffee in AM) Type(s) of exercise: regular exercise and weight lifting frequency: 3-4 times per week
--- NOTE | 2023-09-27 00:47 | PM.OBPRVD ---
Events: Other (Intrahepatic cholestasis of ) Labor & Delivery Delivery date: 09/27/23 Intrapartal Events: None Cervical ripening method: per misoprostal protocol Induction method: per pitocin protocol Delivery augmentation: pitocin Delivery monitor: external FHT and external uterine Route of delivery: Episiotomy description: None L&D Laceration Description: Perineal - 1st Degree and Labial (First-degree, right) Delivery repair: chromic Estimated blood loss (mL): 150 Anesthesia Type: Epidural Complications: None Narrative: Following a 58 2nd stage, the patient delivered spontaneously over an intact perineum a viable and vigorous female infant. No shoulder dystocia was noted or cord entanglement was noted but there was a loose nuchal cord noted which was reduced prior to delivery of the shoulders. Following delivery of the infant, skin to skin contact was initiated immediately and delayed cord clamping performed. Once the umbilical cord was doubly clamped and cut, a specimen cord blood was obtained for routine studies and a 2nd specimen was obtained for the parents at their request. The placenta was then easily delivered with gentle traction on the umbilical cord with suprapubic counter pressure. Intravenous Pitocin was initiated immediately following delivery of the placenta and post delivery blood losses were minimal. Placenta was then inspected and found to be intact with a centrally inserting three-vessel cord. Inspection of the perineum showed first-degree perineal laceration as well as a first-degree right labial laceration. Both were repaired with 2-0 chromic in running interlocking stitches. Sponge, instrument, and needle counts were correct at the completion of the delivery process which was well tolerated by both mother and infant. [place] Baby 1: Infant gender: Female Presentation: vertex Position: Left Occiput Anterior Placenta delivery description: Spontaneous Cord Vessel Description: 3 Vessels score (1 min): 9 score (5 min): 9 score (10 min): 10 weight: 6 lb 7.494 oz Plan for aftercare: Routine care
[2023-09-27] MEDS: DERMOPLAST SPRAY 20% 60 ML 1 SPRAY TOP (06:29)
[2023-09-27] MEDS: LANOLIN OINT 7 GM 1 APPLIC TOP (06:30)
[2023-09-27] MEDS: ACETAMINOPHEN 325 MG TABLET 650 MG PO ×3 (06:30→18:15)
[2023-09-27] MEDS: IBUPROFEN 600 MG TABLET PO ×3 (06:30→18:14)
[2023-09-27] MEDS: DOCUSATE 100 MG CAPSULE PO (08:50)
--- NOTE | 2023-09-27 13:52 | PM.OBDS.1 ---
Discharge Providers Provider Date of admission: 09/25/23 19:28 Discharge Date: 09/27/23 Primary care physician: Tate Michel DO Consults: 09/25/23 19:51 Consult to Anesthesiology Urgent Comment: Consulting Provider: Jefry Flores Reason for consultation: Epidural Has provider been notified: No 09/28/23 00:43 Consult to Data Examination Clerk Routine Comment: Discharge provider: Jefry Flores MD Summary Hospital Course Date Patient Seen: 09/27/23 Time Patient Seen: 13:52 Diagnoses: Intrauterine gestation 37+ 1 weeks gestational age Intrahepatic cholestasis of GBS negative status Hospital Course: Miquel was admitted on the evening of 09/25/2023 for cervical ripening at 37 weeks gestational age due to intrahepatic cholestasis of . Cervical ripening was accomplished with oral Cervidil and on the morning of 09/26/2023 she was initiated on Pitocin augmentation for induction. She responded well to Pitocin and very early on the morning of 09/27/2023 delivered spontaneously a viable female infant with Apgars of 9/9, and a weight of 6 lb 7.5 oz. Following delivery both mother and baby have done extremely well with the mother experiencing prompt return of bowel and bladder function, she is ambulating independently, tolerating a regular diet, and her pain is well controlled with oral pain medications. She will be discharged at this time to home in an afebrile normotensive condition after counseling regarding precautionary symptoms, limitations of activity, medications, and plans for follow-up which will be in 6 weeks. Medications at discharge will include resumption of all pre admission medications aside from ursodiol which she can discontinue now that she is delivered. She will be using lzhh-hhz-lzlbjej Tylenol and/or ibuprofen as needed for pain relief. Peripartum Data Delivery Method: Natural Vaginal Laceration Description: Perineal - 1st Degree and Labial (First-degree, right) Episiotomy description: None complications: none [place] 1: Gender: Female Disposition of : home Status at Discharge Cognitive/behavioral status at discharge: oriented Functional status at discharge: independent ambulation Overall status at discharge: patient is progressing back to baseline Time Spent with Patient Time attestation: Total time spent providing and/or coordinating discharge services: Time spent: Less than 30 minutes Objective Labs 09/25/23 20:35 Exam Const General: cooperative and comfortable Nutritional Appearance: average body habitus Orientation: alert and oriented x3 HENMT Head: normal to inspection, atraumatic and abrasion Ears: hearing grossly normal bilaterally Face and sinus: face symmetric Eyes General: appearance normal, both eyes and all related structures Conjunctivae: conjunctivae normal Sclera: sclerae normal EOM: EOM intact bilaterally Neck Neck: normal visual inspection Resp Effort & Inspection: normal respiratory effort and able to speak in complete sentences GI Inspection: normal to inspection Palpation: soft and no hepatosplenomegaly External Female Exam: other (No significant bleeding noted) Extrem General: no calf tenderness Psych Appearance: grossly normal Mental Status: mental status grossly normal Speech and Movement: speech and movement normal Mood: congruent mood Affect: normal affect Attitude: cooperative Thought Process: normal Thought Content: normal Judgment: judgment good Discharge Plan Discharge Plan Patient Disposition: Home Provider Discharge Comment: Please review the written instructions you received when you were discharged from the hospital. Your follow-up appointment will need to be scheduled for 6 weeks after delivery and I look forward to seeing you then. If however in the meanwhile you have any issues, concerns, or questions, please contact me either through the office phone at [phone], or via the patient portal. Discharge orders & Medications Prescriptions: Discontinued ursodiol 300 mg capsule 300 mg PO TID Qty: 30 2RF No Action ondansetron 8 mg tablet,disintegrating 8 mg PO Q8H Qty: 90 1RF sertraline [Zoloft] 50 mg tablet 50 mg PO DAILY Qty: 60 3RF prochlorperazine maleate [Compazine] 5 mg tablet 5 mg PO TID PRN (Reason: nausea and vomiting) Qty: 60 3RF famotidine [Pepcid AC] 20 mg tablet 20 mg PO BID [id number]-fem-ocdm oil 400 mcg-35 mg -25 mg-5 mg tablet,chewable PO ascorbic acid (vitamin C) 500 mg tablet 500 mg PO DAILY Dramamine 25 mg tablet,chewable 50 mg PO Q4-6H PRN polyethylene glycol 3350 [Miralax] 17 gram/dose powder 17 g PO DAILY Follow up/Referrals: Tate Michel DO [Primary Care Provider] - Jefry Flores MD [Physician] - (please make an appointment for 6 weeks for check on Friday) Discharge Health Status Multidrug resistant organism: No MDRO Diet/Activity/Treatments Diet: Diet as Tolerated Activity: As tolerated Other treatments: Jbbk-ggh-endmqbx Tylenol and/or ibuprofen may be used pain relief. Huci-svn-pjiumrm stool softeners and/or MiraLax may be used as needed constipation. Skin/Wound/Dressing Care Report to your healthcare provider any signs of infection, such as:: chills, fever, increased pain, unusual drainage and unusual redness Dressing: N/A Visit Report/Discharge Packet Instructions: DI for Labor and Delivery, Vaginal , DI for and Nipple Soreness Discharge Data Primary Care Provider: Tate Michel
[2023-09-27 17:07] VITALS: BP 107/64; PULSE 74; RESP 17; TEMP 37.2
[2023-09-27] MEDS: MEASLES,MUMPS,RUBELLA VACC/PF 0.5 ML VIAL SUBCUT (19:30)
== END 2023-09-27 20:05 | disposition home or self-care (01) | DRG 807 ==
PROVIDERS: Admitting Provider Obstetrics & Gynecology; PCP Family Medicine; Referring Provider Obstetrics & Gynecology; Visit Provider Obstetrics & Gynecology
DX: O26.643 Intrahepatic cholestasis of pregnancy, third trimester (principal); Z37.0 Single live birth; Z3A.37 37 weeks gestation of pregnancy; Z67.10 Type A blood, Rh positive; O99.02 Anemia complicating childbirth; O70.0 First degree perineal laceration during delivery; D64.9 Anemia, unspecified
CPT/HCPCS: 36415; 59050; 59200; 59400; 84112; 85025; 86850; 86900; 86901; G0378; A9270; G0379; J2405; J2590

== ENCOUNTER → 2024-02-12 15:07 | Outpatient (CLI) | payer OTHER, SELFPAY ==
--- NOTE | 2024-02-12 15:10 | DI.US.S_ITS ---
PROCEDURE: US PELVIC COMPLETE INDICATIONS: Heavy bleeding TECHNIQUE: Real-time scanning was performed of the pelvic organs, with image documentation. Additional endovaginal scanning was necessary due to incomplete visualization of the adnexal and endometrial structures by transabdominal scanning. COMPARISON: [facility], US, US PELVIC COMPLETE, 02/04/2023, 9:36. FINDINGS: Uterus: Uterus is anteverted and normal in size at 8.8 x 4.3 x 5.3 cm. The myometrium is heterogeneous. The endometrium measures 14.8 mm combined thickness. There is mild vascularity in the anterior endometrium. No findings however suggest retained products. Ovaries: The right ovary measures 4.0 x 1.7 x 1.9 cm, with a calculated ovarian volume of 6.6 cc. The left ovary measures 4.1 x 1.8 x 1.9 cm, with a calculated ovarian volume of 7.2 cc. The ovaries have a normal sonographic appearance. Less than 12 follicles can be seen in each ovary. question solid lesion immediately adjacent to the left ovary, contiguous with the left ovary measuring 2.8 x 1.4 x 2.4 cm. Other: No pathologic free abdominal or pelvic fluid. IMPRESSION: 1. There is mild thickening of the endometrium with mild vascularity. There is no findings suggesting retained products. This finding may potentially indicate the presence of a underlying endometrial polyp. 2. Question small solid lesion contiguous with the left ovary. Comment: Recommend follow-up pelvic ultrasound in 6 weeks for further evaluation of both the endometrium and the left ovary. We strive to produce accurate, complete, and clear reports of imaging services. To assist us in improving patient care, this report was composed using standard report templates and voice recognition software. Therefore, it may contain abnormal punctuation, insertions and/or omissions. Occasional wrong-word or sound-alike substitutions may occur. Though we review the report and make efforts to correct it, we do recommend that the report be read carefully in proper context to recognize any text inaccuracies. Dictated by: Fran Capps M.D. on 02/13/2024 at 9:25 Approved by: Fran Capps M.D. on 02/13/2024 at 9:28
== END ==
PROVIDERS: PCP Family Medicine; Referring Provider Obstetrics & Gynecology; Visit Provider Obstetrics & Gynecology
DX: N92.0 Excessive and frequent menstruation with regular cycle (principal); N94.6 Dysmenorrhea, unspecified; R93.89 Abnormal findings on diagnostic imaging of other specified body structures
CPT/HCPCS: 76856

== ENCOUNTER → 2024-02-25 13:51 | Outpatient (CLI) | payer OTHER, SELFPAY ==
[2024-02-25 14:47] LABS: HCG Quantitative /Beta subunit 808.82 mIU/mL
== END ==
PROVIDERS: PCP Family Medicine; Referring Provider Obstetrics & Gynecology; Visit Provider Obstetrics & Gynecology
DX: N91.2 Amenorrhea, unspecified (principal)
CPT/HCPCS: 36415; 84144; 84702

== ENCOUNTER → 2024-02-27 14:43 | Outpatient (CLI) | payer OTHER, SELFPAY ==
[2024-02-27 16:47] LABS: HCG Quantitative /Beta subunit 1596.5 mIU/mL
== END ==
PROVIDERS: PCP Family Medicine; Referring Provider Obstetrics & Gynecology; Visit Provider Obstetrics & Gynecology
DX: N91.2 Amenorrhea, unspecified (principal)
CPT/HCPCS: 84702

== ENCOUNTER 2024-04-09 10:19 | Emergency (ER) | payer OTHER, SELFPAY ==
[2024-04-09] VITALS (12 sets, daily range): BP systolic 103–120; BP diastolic 58–73; PULSE 61–74; RESP 14–18; TEMP 36.3; O2SAT 97–99; BMI 20.3
[2024-04-09 10:58] LABS: Urine Volume 10mL (spun)
[2024-04-09 10:58] LABS: Alanine Aminotransferase 26 IU/L (<35); Albumin 4.3 g/dL (3.5-5.0); Albumin Globulin Ratio 1.5 (1.0-2.8); Alkaline Phosphatase 57 U/L (38-126); Aspartate Aminotransferase 23 IU/L (14-36); BUN Creatinine Ratio 9.8 (6-22); Bilirubin Total 0.6 mg/dL (0.2-1.3); Blood Urea Nitrogen 5 mg/dL (7-17); Carbon Dioxide 21 mmol/L (22-32); Chloride 106 mmol/L (98-107); Estimated Glomerular Filt Rate > 60 mL/min (>60); Globulin 2.8 g/dL (1.7-4.1); Glucose 93 mg/dL (70-100); HEMOLYSIS < 15 (0-50); Lipase 40 U/L (23-300); Potassium 3.8 mmol/L (3.4-5.1); Sodium 137 mmol/L (137-145); Total Protein 7.1 g/dL (6.3-8.2)
--- NOTE | 2024-04-09 10:58 | ED_ITS ---
HPI - Abdominal Pain General Chief Complaint: Abdominal Pain Stated Complaint: 10wks , thinks has gallstones Time Seen by Provider: 04/09/24 10:44 Source: patient Mode of arrival: Ambulatory History of Present Illness HPI narrative: 28-year-old SAB 3 with 7-month-old living child, currently again, last menstrual period 01/24/2024, EDC 10/29/2024, she believes she is 10 weeks gestation by ultrasound done 2 weeks ago, recalls that her blood type she reports to be A-positive, has care with Dr. Flores who is currently on vacation and will see Dr. Khan later this month for next visit, recalls cholestasis itching nausea and vomiting last , no diagnosis of stones known, still has her gallbladder. She has 2 days duration of persisting right upper quadrant discomfort, waxes and wanes, worse after food. Some nausea and nonbloody emesis. No diarrhea. No black or red stools. Regarding the she denies any recent vaginal spotting or discharge, no leaking of fluid. She denies flank pain, dysuria, urinary frequency. She denies fevers or chills. She denies injury trauma new activities. She took ODT Zofran own supply prior to arrival, nausea better. Related Data Home Medications Medication Instructions Recorded Confirmed FRV12-LQ 400 mcg-om3 35 mg-dha 25 tab PO 03/17/24 03/23/24 mg-epa 5 mg-fish oil chewable tablet ascorbic acid (vitamin C) 500 mg 500 mg PO DAILY 03/17/24 03/23/24 tablet dimenhydrinate 25 mg chewable 50 mg PO Q4-6H PRN 03/17/24 03/23/24 tablet (Dramamine) famotidine 20 mg tablet (Pepcid AC) 20 mg PO BID Acid reflux, heartburn 03/17/24 03/23/24 ondansetron 8 mg disintegrating 8 mg PO Q8H PRN 03/17/24 03/23/24 tablet polyethylene glycol 3350 17 17 g PO DAILY 03/17/24 03/23/24 gram/dose oral powder (Miralax) Previous Rx's Medication Instructions Recorded prochlorperazine maleate 5 mg 5 mg PO TID PRN nausea and 03/23/24 tablet (Compazine) vomiting #60 tabs sertraline 50 mg tablet (Zoloft) 50 mg PO DAILY #60 tabs 03/23/24 Allergies Allergy/AdvReac Type Severity Reaction Status Date / Time latex Allergy Intermediate Hives Verified 04/09/24 10:26 promethazine AdvReac Severe Vomiting Verified 04/09/24 10:26 Review of Systems Review of Systems Narrative: see HPI Patient History Medical History (Updated 04/09/24 @ 13:40 by Veto Min MD) 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 Restless leg syndrome in Anemia affecting Acne (~2017) Substance abuse (~2013) Chicken pox (~2001) Ovarian cyst (~2017) Incompetent nasal valve Nasal obstruction Hypertrophy, nasal, turbinate Deviated septum Ruptured ovarian cyst (2017) Rib injury (2019) MRSA (methicillin resistant Staphylococcus aureus) (2014) Anemia Nasal congestion Surgical History (Updated 05/01/23 @ 18:54 by Jody Odom) Anesthesia H/O nasal septoplasty (~04/2020) [place] teeth removed (05/06/13) Family History (Updated 03/17/24 @ 14:43 by Subha Lebron RN) Mother Heart valve disease SVT (supraventricular tachycardia) Grandmother SVT (supraventricular tachycardia) Grandfather S/P CABG x 4 Heart disease Father Family estrangement Uncle Down syndrome Social History marital status: number of children: 1 household members: spouse and children lives independently: Yes caregiver/support person: Yes housing: house pets and animals: Yes (snakes; reviewed precautions) education level: high school occupational status: unemployed current occupational exposures/hazards: No special neel needs: No travel history: recent (domestic only) seatbelt use: always water heater temp set < 120 deg: Yes working smoke detector in home: Yes fire extinguisher in home: Yes carbon monox detector in home: Yes firearms in home: Yes firearms unloaded and locked: No (but is purchasing one shortly) do you feel safe at home: Yes Smoking Status: Former smoker Tobacco: How many years used: 9 alcohol intake: former (rarely when not ) substance use type: marijuana (not while /) during the past year weight has: other (very underweight prior to last ; back to healthy weight since delivery 6 months ago) well-balanced diet: about half the time daily servings fruits/ve-4 caffeine: Yes (1 cup coffee in AM) Type(s) of exercise: walking frequency: 3-4 times per week Smoking Status: Former smoker tobacco type: vaping alcohol intake frequency: holidays/special occasions only Substance Use Type: marijuana Exam Narrative Exam Narrative: GENERAL: Well-developed patient, in mild distress. HEAD: Atraumatic. Normocephalic. EYES: Pupils equal round and reactive. Extraocular motions intact. No scleral icterus. No injection or drainage. ENT: Nose without bleeding, purulent drainage. Throat without erythema, tonsillar hypertrophy or exudate. Airway patent. NECK: Trachea midline. Non tender CARDIOVASCULAR: Regular rate and rhythm without murmurs, gallops, or rubs. RESPIRATORY: Clear to auscultation. Breath sounds equal bilaterally. No wheezes, rales, or rhonchi. GASTROINTESTINAL: Abdomen soft, non-tender, nondistended. Could not palpate uterine fundus mid-low abdomen EXTREMITIES: No edema or joint tenderness. BACK: Nontender without deformity or crepitance. No flank tenderness. NEURO: AOx3. SKIN: No rash or erythema of visible areas Initial Vital Signs Initial Vital Signs: Vital Signs Temperature 97.3 F L 04/09/24 10:20 Pulse Rate 74 04/09/24 10:20 Respiratory Rate 14 04/09/24 10:20 Blood Pressure 103/66 04/09/24 10:20 Pulse Oximetry 99 04/09/24 10:20 Oxygen Delivery Method Room Air 04/09/24 10:20 Course Orders Ordered: Discontinued Medications Ondansetron HCl (Ondansetron 4 Mg/2 Ml Inj) 4 mg IV NOW PRN PRN Reason: Nausea And Vomiting Vital Signs Vital signs: Vital Signs - 8 hr 04/09/24 12:30 04/09/24 12:30 04/09/24 13:00 Pulse Rate 68 66 Respiratory Rate Blood Pressure 113/66 Pulse Oximetry 97 98 Oxygen Delivery Method 04/09/24 13:30 04/09/24 13:47 Pulse Rate 62 65 Respiratory Rate 18 Blood Pressure 115/68 Pulse Oximetry 99 99 Oxygen Delivery Method Room Air MDM - Abdominal Pain Lab Data Attestation: I reviewed the patient's lab results. 04/09/24 10:25 04/09/24 10:25 Labs: Lab Results 04/09/24 04/09/24 Range/Units 10:25 10:40 WBC 10.4 (4.5-11.0) X10^3/uL RBC 4.34 (4.0-5.2) X10^6/uL Hgb 13.4 (12.0-16.0) g/dL Hct 38.3 (36-46) % MCV 88.4 (80-100) fL MCH 30.9 (26-34) PG MCHC 34.9 (30-36) % RDW 14.5 (11.6-14.8) % Plt Count 206 (150-400) X10^3/uL Neut % (Auto) 75.0 (50-75) % Lymph % (Auto) 17.5 L (25-40) % [place] % (Auto) 6.7 (3-14) % Eos % (Auto) 0.4 L (2-4) % Baso % (Auto) 0.4 (0-2) % Neut # (Auto) 7800 H (0785-6861) /uL Lymph # (Auto) 1800 (4721-6158) /uL [place] # (Auto) 700 (0-900) /uL Eos # (Auto) 0 (0-450) /uL Baso # (Auto) 0 (0-100) /uL Sodium 137 (137-145) mmol/L Potassium 3.8 (3.4-5.1) mmol/L Chloride 106 (98-107) mmol/L Carbon Dioxide 21 L (22-32) mmol/L BUN 5 L (7-17) mg/dL Creatinine 0.51 L (0.52-1.04) mg/dL Estimated GFR > 60 (>60) mL/min BUN/Creatinine Ratio 9.8 (6-22) Glucose 93 (70-100) mg/dL Calcium 9.0 (8.4-10.2) mg/dL Total Bilirubin 0.6 (0.2-1.3) mg/dL AST 23 (14-36) IU/L ALT 26 (<35) IU/L Alkaline Phosphatase 57 (38-126) U/L Total Protein 7.1 (6.3-8.2) g/dL Albumin 4.3 (3.5-5.0) g/dL Globulin 2.8 (1.7-4.1) g/dL Albumin/Globulin Ratio 1.5 (1.0-2.8) Lipase 40 (23-300) U/L HCG, Quant 55603 mIU/mL Urine RBC None seen (0-5/HPF) Urine WBC None seen (0-5/HPF) Ur Squamous Epith Cells 1-5 /hpf (0-5/HPF) Urine Bacteria None seen (None) Urine Mucus 2+ H (Negative) Ur Culture Indicated? Cult not indicated Vol Urine Centrifuged 10ml (spun) Point of care testing: Urine Dip Bedside Urine Glucose Negative Bedside Urine Bilirubin - Negative Bedside Urine Ketone - Negative Urine Specific [place] 1.030 Bedside Urine Occult Blood - Negative Bedside Urine pH 6.0 Bedside Urine Protein +/- 15 Bedside Urine Urobilinogen +/- 1mg Bedside Urine Nitrite - Negative Bedside Urine Leukocytes - Negative Esterase Imaging Data US - OB: Radiologist's Impression: [address] [address] Ultrasound Report Signed Patient: Miquel Amor MR#: [id number] : 1995 Acct:[id number] Age/Sex: 28 / F Date of Service: 04/09/24 Loc: ED Accession Number: [id number] Procedure: US OB <= 14 weeks fetus Ordering Provider: Veto Mni MD PROCEDURE: US OB <= 14 WEEKS FETUS INDICATIONS: preg 10 wks, lower abd cramping, also RUQ abd pain OUTSIDE/PRIOR DATING DATA: Last menstrual period (LMP): 02/04/2024. LMP-based estimated date of delivery (JUSTYNA): 11/10/2024 First dating scan (date and location): 04/09/2024 Estimated date of delivery (JUSTYNA) from first dating scan: 10/28/2024. TECHNIQUE: Real-time scanning was performed of the fetus and maternal pelvic organs, with image documentation. Endovaginal scanning was also performed to better visualize the fetus and maternal ovaries. COMPARISON: None. FINDINGS: Embryo: pole with crown-rump length measuring 4.2 cm, consistent with 11 weeks and 1 day. Heart rate: 168 Maternal organs: Ovaries are normal in appearance. Right corpus luteal cyst. Right para ovarian simple cyst measuring 1.5 cm. . IMPRESSION: Single live intrauterine consistent with 11 weeks and 1 day. This is not consistent with last menstrual period and clinical correlation is recommended. We strive to produce accurate, complete, and clear reports of imaging services. To assist us in improving patient care, this report was composed using standard report templates and voice recognition software. Therefore, it may contain abnormal punctuation, insertions and/or omissions. Occasional wrong-word or sound-alike substitutions may occur. Though we review the report and make efforts to correct it, we do recommend that the report be read carefully in proper context to recognize any text inaccuracies. Dictated by: Zain Gomez M.D. on 04/09/2024 at 12:51 Approved by: Zain Gomez M.D. on 04/09/2024 at 12:55 Right upper quadrant abdominal ultrasound: Radiologist's Impression: [address] [address] Ultrasound Report Signed Patient: Miquel Amor MR#: [id number] : 1995 Acct:[id number] Age/Sex: 28 / F Date of Service: 04/09/24 Loc: ED Accession Number: [id number] Procedure: US abdomen limited Ordering Provider: Veto Min MD PROCEDURE: US ABDOMEN LIMITED INDICATIONS: RUQ abd pain, low abd cramping, preg 10 wks TECHNIQUE: Real-time scanning was performed of the abdominal and retroperitoneal organs, with image documentation. COMPARISON: None. FINDINGS: Liver: Liver is mildly enlarged measuring 17.5 cm and mildly increased in echogenicity. Gallbladder: No gallstones. No wall thickening. No pericholecystic edema. Negative sonographic Stuart's sign. Biliary ducts: Intrahepatic bile ducts are non-dilated. Extrahepatic bile duct caliber measures 2.8 mm. Normal is 6-7 mm or less in diameter, or 10 mm or less post-cholecystectomy. Pancreas: Visualized portions of the pancreas are sonographically normal. Miscellaneous: No free abdominal fluid. IMPRESSION: 1. Normal appearance of the gallbladder. No gallstones or gallbladder wall thickening. 2. Mild hepatomegaly and mild hepatic steatosis. Dictated by: Zain Gomez M.D. on 04/09/2024 at 12:49 Approved by: Zain Gomez M.D. on 04/09/2024 at 12:50 MDM Narrative Medical decision making narrative: 28-year-old female currently SAb3, believes she is about 10 weeks gestation by ultrasound 2 weeks ago, prior had cholestasis with itching and nausea and vomiting, no gallbladder surgery, now with 2 days duration right upper quadrant abdominal pain, waxes and wanes, worse with food. Afebrile, sirs screen negative. Does not seem to have tenderness to right upper quadrant or epigastrium at this time. No vaginal bleeding or leaking of fluid symptoms. Abdominopelvic discomfort in context of 1st trimester , we will obtain ultrasound pelvis, also limited ultrasound right upper quadrant abdominal imaging. Patient declines pain medication at this time when offered. She feels less nauseated with self administered ODT Zofran prior to arrival, declines repeat antiemetic for now. 1210, verbal report sono tech. Right upper quadrant shows normal gallbladder appearance, no stone seen, common bile duct normal, no gallbladder wall thickening or pericholecystic fluid changes. Pelvic ultrasound, live [place] fetus estimated size whe 11 weeks 1 day, with heart rate 168, left corpus luteum cyst noted 1.5 cm, also a small left paraovarian cyst, good flow to both ovaries. Await radiologist's over reading Radiology readings similar, no acute findings. See dictated radiolgy reports. Consider trial of famotidine antacid, discharged home, f/u with PNC provider early next week, return precautions discussed Discharge Plan Departure Patient Disposition: Home Clinical Impression: Abdominal pain, , Ovarian cyst Activity Restrictions/Additional Instructions: Current suspected 10 weeks' gestation, with ongoing right upper quadrant discomfort, reported problems with abdominal pain previous , still has gallbladder, nausea improved with ODT Zofran taken prior to arrival. Screening labs unremarkable. No fever on triage. Ultrasound pelvis showed single live fetus at current 11 week 1 day size, no acute changes noted, incidental right corpus luteum cyst was noted, though no free fluid, no mention of any involution or inflammation or bleeding or leaking of fluid from the cyst. Right upper quadrant abdomen ultrasound also performed, normal-appearing gallbladder without thickened wall or fluid around it, no obstructive changes to the bile ducts. Unclear cause of your symptoms, could be related to corpus luteum cyst but it is rather small and not obviously involuting or leaking or bleeding. Consider antacid. In follow up if symptoms persist could consider upper endoscopy but some risks during . [facility] nuclear medicine scanning of the gallbladder is contraindicated usually during . Continue use of antacid. Follow up with your OB provider this Friday. Return earlier to this/nearest emergency department for any change worsening symptoms or any concerns prior Prescriptions: No Action sertraline [Zoloft] 50 mg tablet 50 mg PO DAILY Qty: 60 3RF prochlorperazine maleate [Compazine] 5 mg tablet 5 mg PO TID PRN (Reason: nausea and vomiting) Qty: 60 3RF famotidine [Pepcid AC] 20 mg tablet 20 mg PO BID [id number]-feb-xox-fmrd oil 400 mcg-35 mg -25 mg-5 mg tablet,chewable PO ondansetron 8 mg tablet,disintegrating 8 mg PO Q8H PRN ascorbic acid (vitamin C) 500 mg tablet 500 mg PO DAILY Dramamine 25 mg tablet,chewable 50 mg PO Q4-6H PRN polyethylene glycol 3350 [Miralax] 17 gram/dose powder 17 g PO DAILY Referrals: Tate Michel DO [Primary Care Provider] - Chaparrita Khan DO [Physician] - Jefry Flores MD [Physician] - Stand Alone Forms: Patient Portal/API
[2024-04-09 11:00] LABS: Bacteria Urine None Seen; Culture Indicated Urine Cult Not Indicated; Mucus Urine 2+ (Negative); RBC Urine None Seen (0-5/HPF); Squamous Epithelial Cell Urine 1-5 /HPF (0-5/HPF); WBC Urine None Seen (0-5/HPF)
[2024-04-09 11:02] LABS: Add Manual Diff / Slide Review NO; Basophils Absolute Auto 0 /uL (0-100); Basophils Percent Auto 0.4 % (0-2); Eosinophils Absolute Auto 0 /uL (0-450); Eosinophils Percent Auto 0.4 % (2-4); Hematocrit 38.3 % (36-46); Hemoglobin 13.4 g/dL (12.0-16.0); Lymphocytes Absolute Auto 1800 /uL (1100-4500); Lymphocytes Percent Auto 17.5 % (25-40); Mean Corpuscular HGB Conc 34.9 % (30-36); Mean Corpuscular Hemoglobin 30.9 PG (26-34); Mean Corpuscular Volume 88.4 fL (80-100); Monocytes Absolute Auto 700 /uL (0-900); Monocytes Percent Auto 6.7 % (3-14); Neutrophils Absolute Auto 7800 /uL (1500-7000); Platelet Count 206 X10^3/uL (150-400); Red Blood Cell Count 4.34 X10^6/uL (4.0-5.2); Red Cell Distribution Width 14.5 % (11.6-14.8); White Blood Cell Count 10.4 X10^3/uL (4.5-11.0)
--- NOTE | 2024-04-09 11:02 | DI.US.S_ITS ---
PROCEDURE: US ABDOMEN LIMITED INDICATIONS: RUQ abd pain, low abd cramping, preg 10 wks TECHNIQUE: Real-time scanning was performed of the abdominal and retroperitoneal organs, with image documentation. COMPARISON: None. FINDINGS: Liver: Liver is mildly enlarged measuring 17.5 cm and mildly increased in echogenicity. Gallbladder: No gallstones. No wall thickening. No pericholecystic edema. Negative sonographic Stuart's sign. Biliary ducts: Intrahepatic bile ducts are non-dilated. Extrahepatic bile duct caliber measures 2.8 mm. Normal is 6-7 mm or less in diameter, or 10 mm or less post-cholecystectomy. Pancreas: Visualized portions of the pancreas are sonographically normal. Miscellaneous: No free abdominal fluid. IMPRESSION: 1. Normal appearance of the gallbladder. No gallstones or gallbladder wall thickening. 2. Mild hepatomegaly and mild hepatic steatosis. Dictated by: Zain Gomez M.D. on 04/09/2024 at 12:49 Approved by: Zain Gomez M.D. on 04/09/2024 at 12:50
[2024-04-09 11:45] LABS: HCG Quantitative /Beta subunit 82449 mIU/mL
== END 2024-04-09 13:45 | disposition home or self-care (01) ==
PROVIDERS: Emergency Provider Emergency Medicine; PCP Family Medicine
DX: O26.91 Pregnancy related conditions, unspecified, first trimester (principal); R10.11 Right upper quadrant pain; N83.202 Unspecified ovarian cyst, left side; Z3A.10 10 weeks gestation of pregnancy
CPT/HCPCS: 36415; 76705; 76801; 80053; 81003; 81015; 83690; 84702; 85025; 99283; 99284

== ENCOUNTER 2024-04-14 08:36 | Emergency (ER) | payer OTHER, SELFPAY ==
[2024-04-14 09:17] VITALS: BP 108/70; PULSE 71; RESP 18; TEMP 36.6; O2SAT 98; BMI 19.4
--- NOTE | 2024-04-14 09:32 | ED.NAVMDI ---
HPI - Nausea/Vomiting/Diarrhea General Chief complaint: Nausea/Vomiting/Diarrhea Stated complaint: vomiting, can't keep anything down Time Seen by Provider: 04/14/24 09:32 Source: patient and family Mode of arrival: Ambulatory History of Present Illness HPI Narrative: Patient with past medical history of hyperemesis gravidarum, comes into the ED for symptoms of nausea vomiting diarrhea and abdominal pain. Patient is currently about 10-11 weeks does follow with OBGYN here at [place]. States that she is set up for IV infusions fluids given history of this. States that she also had a history of cholestasis with her 1st , still has her gallbladder. She states that she tried her p.o. Zofran and Reglan at home but threw it up, symptoms started around midnight last night has had inability hold anything down since then. She denies any other symptoms such as headache visual disturbances fever chills or any other GI/ symptoms. No pelvic pain no vaginal bleeding or discharge Related Data Home Medications Medication Instructions Recorded Confirmed [id number] 400 mcg-om3 35 mg-dha 25 tab PO 03/17/24 03/23/24 mg-epa 5 mg-fish oil chewable tablet ascorbic acid (vitamin C) 500 mg 500 mg PO DAILY 03/17/24 03/23/24 tablet dimenhydrinate 25 mg chewable 50 mg PO Q4-6H PRN 03/17/24 03/23/24 tablet (Dramamine) famotidine 20 mg tablet (Pepcid AC) 20 mg PO BID Acid reflux, heartburn 03/17/24 03/23/24 polyethylene glycol 3350 17 17 g PO DAILY 03/17/24 03/23/24 gram/dose oral powder (Miralax) Previous Rx's Medication Instructions Recorded prochlorperazine maleate 5 mg 5 mg PO TID PRN nausea and 03/23/24 tablet (Compazine) vomiting #60 tabs sertraline 50 mg tablet (Zoloft) 50 mg PO DAILY #60 tabs 03/23/24 ondansetron 8 mg disintegrating 8 mg PO Q8H #90 tabs 04/13/24 tablet cephalexin 500 mg capsule 500 mg PO TID 5 days #15 caps 04/14/24 Allergies Allergy/AdvReac Type Severity Reaction Status Date / Time latex Allergy Intermediate Hives Verified 04/09/24 10:26 promethazine AdvReac Severe Vomiting Verified 04/09/24 10:26 diphenhydramine AdvReac Intermediate Shakiness Verified 04/14/24 09:24 [From Ann-Marie] Review of Systems Review of Systems Narrative: HEENT: Denies headache, eye drainage, eye irritation, head trauma, sore throat, voice change Cardiovascular: Denies any chest pain, palpitations, shortness of breath, tachycardia Respiratory: Denies any shortness of breath, cough, wheeze, stridor GI/: Positive for nausea vomiting epigastric pain MSK: Denies any joint pain, muscle pains, swelling Skin: Denies any rashes, lesions, discoloration Neuro: Denies any headache, lightheadedness, dizziness, fainting, weakness Psych: Denies SI/HI Patient History Medical History (Updated 04/14/24 @ 11:34 by Jm Gay DO) 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 Restless leg syndrome in Anemia affecting Acne (~2017) Substance abuse (~2013) Chicken pox (~2001) Ovarian cyst (~2017) Incompetent nasal valve Nasal obstruction Hypertrophy, nasal, turbinate Deviated septum Ruptured ovarian cyst (2017) Rib injury (2019) MRSA (methicillin resistant Staphylococcus aureus) (2014) Anemia Nasal congestion Surgical History (Updated 05/01/23 @ 18:54 by Jody Odom) Anesthesia H/O nasal septoplasty (~04/2020) Mountain teeth removed (05/06/13) Family History (Updated 03/17/24 @ 14:43 by Subha Lebron RN) Mother Heart valve disease SVT (supraventricular tachycardia) Grandmother SVT (supraventricular tachycardia) Grandfather S/P CABG x 4 Heart disease Father Family estrangement Uncle Down syndrome Social History marital status: number of children: 1 household members: spouse and children lives independently: Yes caregiver/support person: Yes housing: house pets and animals: Yes (snakes; reviewed precautions) education level: high school occupational status: unemployed current occupational exposures/hazards: No special neel needs: No travel history: recent (domestic only) seatbelt use: always water heater temp set < 120 deg: Yes working smoke detector in home: Yes fire extinguisher in home: Yes carbon monox detector in home: Yes firearms in home: Yes firearms unloaded and locked: No (but is purchasing one shortly) do you feel safe at home: Yes Smoking Status: Former smoker Tobacco: How many years used: 9 alcohol intake: former (rarely when not ) substance use type: marijuana (not while /) during the past year weight has: other (very underweight prior to last ; back to healthy weight since delivery 6 months ago) well-balanced diet: about half the time daily servings fruits/ve-4 caffeine: Yes (1 cup coffee in AM) Type(s) of exercise: walking frequency: 3-4 times per week Smoking Status: Former smoker tobacco type: vaping alcohol intake frequency: holidays/special occasions only Substance Use Type: marijuana Exam Narrative Exam Narrative: General: Patient dry heaving on exam HEENT: Normocephalic, atraumatic, PERRLA, normal sclera, eyelids normal, Neck: Active full range of motion, atraumatic Chest: Normal to inspection, negative crepitus, no overlying erythema ecchymosis Respiratory: Normal respiratory effort, not in acute respiratory distress, clear to auscultation bilaterally negative cough, wheeze, tachypnea, rhonchi, rales Cardiology: Regular rate rhythm negative gallop, murmur, rubs GI/: Normal to inspection, soft, nonrigid, mild tenderness to palpation of the epigastric region, exam deferred MSK: Full range of active range of motion of all 4 extremities, atraumatic Skin: No rashes lesions noted Neuro: Alert awake oriented x3, moves all 4 extremities spontaneously, cranial nerves intact, able to answer all questions appropriately follows commands appropriately Psych: Cooperative, negative suicidal or homicidal ideations Initial Vital Signs Initial Vital Signs: Vital Signs Temperature 98 F 04/14/24 09:17 Pulse Rate 71 04/14/24 09:17 Respiratory Rate 18 04/14/24 09:17 Blood Pressure 108/70 04/14/24 09:17 Pulse Oximetry 98 04/14/24 09:17 Oxygen Delivery Method Room Air 04/14/24 09:17 Course Orders Ordered: ED Orders 04/14/24 09:30 Beta HCG, Quant [HCG Quantitative /Beta subunit] Stat Complete Blood Count AUTO DIFF Stat Comprehensive Metabolic Panel Stat Lipase Stat Lipase Stat MAG [Magnesium] Stat 04/14/24 09:42 US abdomen limited Stat 04/14/24 11:00 Miscellaneous to [facility] Stat Urine Microscopic Stat Ondansetron HCl (Ondansetron 4 Mg/2 Ml Inj) 4 mg IV NOW PRN PRN Reason: Nausea And Vomiting Ondansetron HCl (Ondansetron 4 Mg Odt) 4 mg PO NOW PRN PRN Reason: Nausea And Vomiting Discontinued Medications Cephalexin HCl (Cephalexin 250 Mg Capsule) 500 mg PO NOW ONE Stop: 04/14/24 11:31 Sodium Chloride (Normal Saline 0.9%) 1,000 mls @ 1,000 mls/hr IV BOLUS ONE Stop: 04/14/24 10:37 Last Infusion: 04/14/24 10:54 Dose: Infused Documented By: Admin: 04/14/24 09:57 Dose: 1,000 mls/hr Documented By: ISIAH Metoclopramide HCl (Metoclopramide 10 Mg/2 Ml Inj) 10 mg IV NOW ONE Stop: 04/14/24 09:39 Last Admin: 04/14/24 09:57 Dose: 10 mg Documented By: RB Vital Signs Vital signs: Vital Signs - 8 hr 04/14/24 09:17 04/14/24 10:22 04/14/24 10:23 Temperature 98 F Pulse Rate 71 Respiratory Rate 18 Blood Pressure 108/70 111/63 Pulse Oximetry 98 99 Oxygen Delivery Method Room Air 04/14/24 10:23 04/14/24 10:30 04/14/24 10:30 Temperature Pulse Rate 72 68 Respiratory Rate Blood Pressure 113/59 L Pulse Oximetry 100 100 Oxygen Delivery Method MDM - Nausea/Vomiting/Diarrhea Differential Diagnosis Differential diagnosis: Likely other (Electrolyte abnormality, cholelithiasis, cholecystitis, pancreatitis, hyperemesis gravidarum, asymptomatic bacteriuria) Medical Records Attestation: I reviewed the patient's medical records. Lab Data Attestation: I reviewed the patient's lab results. 04/14/24 09:30 04/14/24 09:30 Labs: Lab Results 04/14/24 04/14/24 04/14/24 Range/Units 09:30 09:30 11:00 WBC 11.5 H (4.5-11.0) X10^3/uL RBC 4.64 (4.0-5.2) X10^6/uL Hgb 14.2 (12.0-16.0) g/dL Hct 40.7 (36-46) % MCV 87.9 (80-100) fL MCH 30.6 (26-34) PG MCHC 34.9 (30-36) % RDW 14.6 (11.6-14.8) % Plt Count 222 (150-400) X10^3/uL Neut % (Auto) 80.7 H (50-75) % Lymph % (Auto) 13.1 L (25-40) % [place] % (Auto) 5.5 (3-14) % Eos % (Auto) 0.1 L (2-4) % Baso % (Auto) 0.6 (0-2) % Neut # (Auto) 9300 H (3569-2554) /uL Lymph # (Auto) 1500 (8891-2319) /uL [place] # (Auto) 600 (0-900) /uL Eos # (Auto) 0 (0-450) /uL Baso # (Auto) 100 (0-100) /uL Sodium 137 (137-145) mmol/L Potassium 3.7 (3.4-5.1) mmol/L Chloride 104 (98-107) mmol/L Carbon Dioxide 22 (22-32) mmol/L BUN 9 (7-17) mg/dL Creatinine 0.45 L (0.52-1.04) mg/dL Estimated GFR > 60 (>60) mL/min BUN/Creatinine Ratio 20.0 (6-22) Glucose 98 (70-100) mg/dL Calcium 9.7 (8.4-10.2) mg/dL Magnesium 2.0 (1.6-2.3) mg/dL Total Bilirubin 0.8 (0.2-1.3) mg/dL AST 25 (14-36) IU/L ALT 25 (<35) IU/L Alkaline Phosphatase 63 (38-126) U/L Total Protein 7.9 (6.3-8.2) g/dL Albumin 4.5 (3.5-5.0) g/dL Globulin 3.4 (1.7-4.1) g/dL Albumin/Globulin Ratio 1.3 (1.0-2.8) Lipase 34 33 (23-300) U/L HCG, Quant 06817 mIU/mL Urine RBC None seen (0-5/HPF) Urine WBC 1-5/hpf (0-5/HPF) Ur Squamous Epith Cells 1-5 /hpf (0-5/HPF) Urine Bacteria Many (>30) H (None) Urine Mucus 2+ H (Negative) Ur Culture Indicated? Cult not indicated Vol Urine Centrifuged 10ml (spun) Urine Dip Bedside Urine Glucose Negative Bedside Urine Bilirubin - Negative Bedside Urine Ketone +++ 80 Urine Specific [place] 1.015 Bedside Urine Occult Blood - Negative Bedside Urine pH 7.0 Bedside Urine Protein + 30 Bedside Urine Urobilinogen - Negative Bedside Urine Nitrite - Negative Bedside Urine Leukocytes - Negative Esterase MDM Narrative Medical decision making narrative: Patient is a 28-year-old female with past medical history of hyperemesis gravidarum, is currently 11 weeks comes into the ED from home for evaluation of nausea vomiting abdominal pain. States it has been ongoing since midnight. States that she does see OBGYN here at [place], states that she is already being treated for hyperemesis gravidarum, however has been unable to tolerate anything by mouth since midnight therefore secondary to the ED for further evaluation treatment. Ultrasound showing intrauterine with reassuring heart tones. Urine showing asymptomatic bacteriuria therefore will treat for this. Symptoms improved after IV fluids and antiemetics. Patient was instructed to follow up with OBGYN and PCP in outpatient setting, verbalized understanding with being discharged home with outpatient follow-up. Strict return precautions given safe for discharge home Discharge Plan Departure Patient Disposition: Home Clinical Impression: Nausea and vomiting during , Asymptomatic bacteriuria during Activity Restrictions/Additional Instructions: Please follow-up with your OBGYN in 1-2 days Prescriptions: New cephalexin 500 mg capsule 500 mg PO TID 5 Days Qty: 15 0RF No Action ondansetron 8 mg tablet,disintegrating 8 mg PO Q8H Qty: 90 1RF sertraline [Zoloft] 50 mg tablet 50 mg PO DAILY Qty: 60 3RF prochlorperazine maleate [Compazine] 5 mg tablet 5 mg PO TID PRN (Reason: nausea and vomiting) Qty: 60 3RF famotidine [Pepcid AC] 20 mg tablet 20 mg PO BID [id number] oil 400 mcg-35 mg -25 mg-5 mg tablet,chewable PO ascorbic acid (vitamin C) 500 mg tablet 500 mg PO DAILY Dramamine 25 mg tablet,chewable 50 mg PO Q4-6H PRN polyethylene glycol 3350 [Miralax] 17 gram/dose powder 17 g PO DAILY Referrals: Tate Michel DO [Primary Care Provider] - Stand Alone Forms: Patient Portal/API
--- NOTE | 2024-04-14 09:42 | DI.US.S_ITS ---
PROCEDURE: US ABDOMEN LIMITED INDICATIONS: Right upper quadrant abdominal pain she of cholestasis TECHNIQUE: Real-time scanning was performed of the abdominal and retroperitoneal organs, with image documentation. COMPARISON: [facility], US, US ABDOMEN LIMITED, 04/09/2024, 11:35. FINDINGS: Liver: Liver is normal in size and homogeneous in echotexture. Gallbladder: No gallstones. No wall thickening. No pericholecystic edema. Negative sonographic Stuart's sign. Biliary ducts: Intrahepatic bile ducts are non-dilated. Extrahepatic bile duct caliber measures 3 point mm. Normal is 6-7 mm or less in diameter, or 10 mm or less post-cholecystectomy. Pancreas: Visualized portions of the pancreas are sonographically normal. Miscellaneous: No free abdominal fluid. A living intrauterine is noted with a heart rate of 168 beats per minute. IMPRESSION: Unremarkable right upper quadrant ultrasound. No gallstone disease noted. Dictated by: Fran Capps M.D. on 04/14/2024 at 10:52 Approved by: Fran Capps M.D. on 04/14/2024 at 10:58
[2024-04-14 09:46] LABS: Add Manual Diff / Slide Review NO; Basophils Absolute Auto 100 /uL (0-100); Basophils Percent Auto 0.6 % (0-2); Eosinophils Absolute Auto 0 /uL (0-450); Eosinophils Percent Auto 0.1 % (2-4); Hematocrit 40.7 % (36-46); Hemoglobin 14.2 g/dL (12.0-16.0); Lymphocytes Absolute Auto 1500 /uL (1100-4500); Lymphocytes Percent Auto 13.1 % (25-40); Mean Corpuscular HGB Conc 34.9 % (30-36); Mean Corpuscular Hemoglobin 30.6 PG (26-34); Mean Corpuscular Volume 87.9 fL (80-100); Monocytes Absolute Auto 600 /uL (0-900); Monocytes Percent Auto 5.5 % (3-14); Neutrophils Absolute Auto 9300 /uL (1500-7000); Neutrophils Percent Auto 80.7 % (50-75); Platelet Count 222 X10^3/uL (150-400); Red Blood Cell Count 4.64 X10^6/uL (4.0-5.2); Red Cell Distribution Width 14.6 % (11.6-14.8); White Blood Cell Count 11.5 X10^3/uL (4.5-11.0)
[2024-04-14] MEDS: METOCLOPRAMIDE 10 MG/2 ML INJ IV (09:57)
[2024-04-14] MEDS: SODIUM CHLORIDE 0.9% 1,000 ML 1000 ML IV (09:57)
[2024-04-14 10:03] LABS: Alanine Aminotransferase 25 IU/L (<35); Albumin 4.5 g/dL (3.5-5.0); Albumin Globulin Ratio 1.3 (1.0-2.8); Alkaline Phosphatase 63 U/L (38-126); Aspartate Aminotransferase 25 IU/L (14-36); Bilirubin Total 0.8 mg/dL (0.2-1.3); Blood Urea Nitrogen 9 mg/dL (7-17); Calcium 9.7 mg/dL (8.4-10.2); Carbon Dioxide 22 mmol/L (22-32); Chloride 104 mmol/L (98-107); Estimated Glomerular Filt Rate > 60 mL/min (>60); Globulin 3.4 g/dL (1.7-4.1); Glucose 98 mg/dL (70-100); HEMOLYSIS 18 (0-50); Lipase 33 U/L (23-300); Lipase 34 U/L (23-300); Potassium 3.7 mmol/L (3.4-5.1); Sodium 137 mmol/L (137-145); Total Protein 7.9 g/dL (6.3-8.2)
[2024-04-14 10:22] VITALS: O2SAT 99
[2024-04-14 10:23] VITALS: BP 111/63; PULSE 72; O2SAT 100
[2024-04-14 10:30] VITALS: BP 113/59; PULSE 68; O2SAT 100
[2024-04-14 10:46] LABS: HCG Quantitative /Beta subunit 72912 mIU/mL
[2024-04-14 11:19] LABS: Urine Volume 10mL (spun)
[2024-04-14 11:21] LABS: Bacteria Urine Many (>30)
[2024-04-14 11:22] LABS: Culture Indicated Urine Cult Not Indicated; Mucus Urine 2+ (Negative); RBC Urine None Seen (0-5/HPF); Squamous Epithelial Cell Urine 1-5 /HPF (0-5/HPF); WBC Urine 1-5/HPF (0-5/HPF)
[2024-04-14 11:46] VITALS: PULSE 75; O2SAT 98
[2024-04-14 11:47] VITALS: BP 107/72; O2SAT 97
[2024-04-14] MEDS: cephALEXin 250 MG CAPSULE 500 MG PO (11:50)
== END 2024-04-14 11:59 | disposition home or self-care (01) ==
PROVIDERS: Emergency Provider Student in an Organized Health Care Education/Training Program; PCP Family Medicine
DX: O26.891 Other specified pregnancy related conditions, first trimester (principal); R11.2 Nausea with vomiting, unspecified; R82.71 Bacteriuria; Z3A.10 10 weeks gestation of pregnancy
CPT/HCPCS: 36415; 76705; 80053; 81003; 81015; 83690; 83735; 84702; 85025; 96361; 96374; 99284; J2765

== ENCOUNTER → 2024-04-20 11:22 | Outpatient (CLI) | payer OTHER, SELFPAY ==
[2024-04-20 12:38] LABS: Add Manual Diff / Slide Review NO; Basophils Absolute Auto 0 /uL (0-100); Basophils Percent Auto 0.3 % (0-2); Eosinophils Absolute Auto 0 /uL (0-450); Eosinophils Percent Auto 0.4 % (2-4); Hematocrit 37.1 % (36-46); Hemoglobin 13.2 g/dL (12.0-16.0); Lymphocytes Absolute Auto 1600 /uL (1100-4500); Lymphocytes Percent Auto 19.1 % (25-40); Mean Corpuscular HGB Conc 35.4 % (30-36); Mean Corpuscular Hemoglobin 31.4 PG (26-34); Mean Corpuscular Volume 88.8 fL (80-100); Monocytes Absolute Auto 700 /uL (0-900); Monocytes Percent Auto 8.7 % (3-14); Neutrophils Absolute Auto 6100 /uL (1500-7000); Neutrophils Percent Auto 71.5 % (50-75); Platelet Count 186 X10^3/uL (150-400); Red Blood Cell Count 4.18 X10^6/uL (4.0-5.2); Red Cell Distribution Width 14.3 % (11.6-14.8); White Blood Cell Count 8.5 X10^3/uL (4.5-11.0)
[2024-04-21 07:10] LABS: RPR Screen Non Reactive (Non Reactive)
[2024-04-21 09:14] LABS: Varicella IgG Antibody 1005 index (Immune >165)
[2024-04-21 16:23] LABS: Hepatitis B Surface Antigen NEGATIVE s/c (NEGATIVE); Rubella Antibody IgG 42.1 IU/mL (>15)
[2024-04-21 16:39] LABS: HIV 1 & 2 Ab/Ag 4th Gen Combo NEGATIVE (NEGATIVE); Hep C Virus Ab w/Reflex Quant NEGATIVE s/c (NEGATIVE)
== END ==
PROVIDERS: PCP Family Medicine; Referring Provider Obstetrics & Gynecology; Visit Provider Obstetrics & Gynecology
DX: Z34.81 Encounter for supervision of other normal pregnancy, first trimester (principal)
CPT/HCPCS: 36415; 80055; 86787; 86803; 86850; 86900; 86901; 87389

== ENCOUNTER → 2024-05-12 10:03 | Outpatient (CLI) | payer OTHER, SELFPAY | PROVIDERS: PCP Family Medicine; Referring Provider Obstetrics & Gynecology; Visit Provider Obstetrics & Gynecology | DX: Z34.80 Encounter for supervision of other normal pregnancy, unspecified trimester (principal); Z36.0 Encounter for antenatal screening for chromosomal anomalies | CPT/HCPCS: 87086 ==

== ENCOUNTER 2024-05-31 03:53 | Emergency (ER) | payer OTHER, SELFPAY ==
[2024-05-31 03:57] VITALS: BP 114/72; PULSE 69; RESP 14; TEMP 36.3; O2SAT 95; BMI 19.8
--- NOTE | 2024-05-31 04:13 | DI.US.S_ITS ---
PROCEDURE: US OB LIMITED INDICATIONS: PAIN OUTSIDE/PRIOR DATING DATA: Last menstrual period (LMP): 01/22/2024. LMP-based estimated date of delivery (JUSTYNA): 10/28/2024. First dating scan (date and location): 04/09/2024. TECHNIQUE: Real-time scanning was performed of the fetus, with image documentation. Endovaginal scanning: Not performed COMPARISON: [facility], US OB <= 14 WEEKS FETUS, 04/09/2024, 11:48. [facility], , ABDOMEN LIMITED, 04/14/2024, 9:58. [facility], US OB <= 14 WEEKS FETUS, 04/20/2024, 11:24. FINDINGS: General: A single living intrauterine gestation is present. Presentation: Breech. Placenta: Placental position is anterior, without previa. No placental abruption. Amniotic fluid index: 10.4 cm, normal range is 5-24 cm. Single deepest vertical pocket is 3.3 cm. heart rate: 141 beats per minute. Maternal cervical canal: 3.3 cm long. Normal lower limit is 2.5 cm. Clinically estimated gestational age: 18 weeks 4 days The maternal appendix is not seen. No maternal hydronephrosis. IMPRESSION: 1. Crane living intrauterine at 18 weeks 4 days based on prior dating. 2. Normal placenta and amniotic fluid. 3. The maternal appendix is not seen. No maternal hydronephrosis. MRI could be considered for further evaluation. This report is concordant with the overnight preliminary interpretation. We strive to produce accurate, complete, and clear reports of imaging services. To assist us in improving patient care, this report was composed using standard report templates and voice recognition software. Therefore, it may contain abnormal punctuation, insertions and/or omissions. Occasional wrong-word or sound-alike substitutions may occur. Though we review the report and make efforts to correct it, we do recommend that the report be read carefully in proper context to recognize any text inaccuracies. Dictated by: Edis Nix M.D. on 05/31/2024 at 8:12 Approved by: Edis Nix M.D. on 05/31/2024 at 8:17
--- NOTE | 2024-05-31 04:14 | ED.GENADULT ---
HPI - General Adult General Chief complaint: Abdominal Pain Stated complaint: abd pain, 19 weeks Time Seen by Provider: 05/31/24 03:55 Source: patient Mode of arrival: Ambulatory History of Present Illness HPI narrative: Patient is a 29-year-old female. G-tube P1 at approximately 19 weeks EGA he was here for evaluation of right-sided abdominal cramping. She has had abdominal pain throughout her . Was seen here in the emergency department within the past several weeks for right upper quadrant abdominal pain but that has since resolved. She was having some nausea but no vomiting. Her nausea has been going on since the beginning of her . Her last bowel movement was approximately 1 day ago. No vaginal bleeding. No urinary symptoms. No fevers. No skin changes. The abdominal pain does seem to come and go. Upon my initial evaluation discomfort has improved somewhat. Related Data Home Medications Medication Instructions Recorded Confirmed [id number] 400 mcg-om3 35 mg-dha 25 tab PO 03/17/24 05/12/24 mg-epa 5 mg-fish oil chewable tablet ascorbic acid (vitamin C) 500 mg 500 mg PO DAILY 03/17/24 05/12/24 tablet dimenhydrinate 25 mg chewable 50 mg PO Q4-6H PRN 03/17/24 05/12/24 tablet (Dramamine) famotidine 20 mg tablet (Pepcid AC) 20 mg PO BID Acid reflux, heartburn 03/17/24 05/12/24 polyethylene glycol 3350 17 17 g PO DAILY 03/17/24 05/12/24 gram/dose oral powder (Miralax) Previous Rx's Medication Instructions Recorded prochlorperazine maleate 5 mg 5 mg PO TID PRN nausea and 03/23/24 tablet (Compazine) vomiting #60 tabs ondansetron 8 mg disintegrating 8 mg PO Q8H #90 tabs 04/13/24 tablet Allergies Allergy/AdvReac Type Severity Reaction Status Date / Time latex Allergy Intermediate Hives Verified 05/12/24 09:58 promethazine AdvReac Severe Vomiting Verified 05/12/24 09:58 diphenhydramine AdvReac Intermediate Shakiness Verified 05/12/24 09:58 [From Benadpazl] Review of Systems Review of Systems Narrative: See HPI Patient History Medical History 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 Restless leg syndrome in Anemia affecting Acne (~2017) Substance abuse (~2013) Chicken pox (~2001) Ovarian cyst (~2017) Incompetent nasal valve Nasal obstruction Hypertrophy, nasal, turbinate Deviated septum Ruptured ovarian cyst (2017) Rib injury (2019) MRSA (methicillin resistant Staphylococcus aureus) (2014) Anemia Nasal congestion Surgical History (Updated 05/01/23 @ 18:54 by Jody Odom) Anesthesia H/O nasal septoplasty (~04/2020) [place] teeth removed (05/06/13) Family History (Updated 03/17/24 @ 14:43 by Subha Lebron RN) Mother Heart valve disease SVT (supraventricular tachycardia) Grandmother SVT (supraventricular tachycardia) Grandfather S/P CABG x 4 Heart disease Father Family estrangement Uncle Down syndrome Social History marital status: number of children: 1 household members: spouse and children lives independently: Yes caregiver/support person: Yes housing: house pets and animals: Yes (snakes; reviewed precautions) education level: high school occupational status: unemployed current occupational exposures/hazards: No special neel needs: No travel history: recent (domestic only) seatbelt use: always water heater temp set < 120 deg: Yes working smoke detector in home: Yes fire extinguisher in home: Yes carbon monox detector in home: Yes firearms in home: Yes firearms unloaded and locked: No (but is purchasing one shortly) do you feel safe at home: Yes Smoking Status: Former smoker Tobacco: How many years used: 9 alcohol intake: former (rarely when not ) substance use type: marijuana (not while /) during the past year weight has: other (very underweight prior to last ; back to healthy weight since delivery 6 months ago) well-balanced diet: about half the time daily servings fruits/ve-4 caffeine: Yes (1 cup coffee in AM) Type(s) of exercise: walking frequency: 3-4 times per week Smoking Status: Former smoker tobacco type: vaping alcohol intake frequency: holidays/special occasions only Substance Use Type: marijuana Exam Initial Vital Signs Initial Vital Signs: Vital Signs Temperature 97.3 F L 05/31/24 03:57 Pulse Rate 69 05/31/24 03:57 Respiratory Rate 14 05/31/24 03:57 Blood Pressure 114/72 05/31/24 03:57 Pulse Oximetry 95 05/31/24 03:57 Oxygen Delivery Method Room Air 05/31/24 03:57 Const General: cooperative, comfortable and No ill appearing HENMT Head: normal to inspection and normocephalic Resp Effort & Inspection: normal respiratory effort Auscultation: clear to auscultation bilaterally Cardio Rate: regular rate Rhythm: regular rhythm Skin General: no rashes or lesions noted Neuro General: patient alert, patient awake and moves all extremities Extrem General: capillary refill normal Course Orders Ordered: ED Orders 05/31/24 04:13 US OB limited Stat 05/31/24 04:20 Complete Blood Count AUTO DIFF Stat Comprehensive Metabolic Panel Stat Lipase Stat 05/31/24 05:15 Urine Culture Stat Urine Microscopic Stat Vital Signs Vital signs: Vital Signs - 8 hr 05/31/24 03:57 05/31/24 04:23 05/31/24 04:23 Temperature 97.3 F L Pulse Rate 69 63 Respiratory Rate 14 Blood Pressure 114/72 108/60 Pulse Oximetry 95 97 Oxygen Delivery Method Room Air 05/31/24 04:30 05/31/24 04:30 05/31/24 05:00 Temperature Pulse Rate 66 59 L Respiratory Rate Blood Pressure 117/64 Pulse Oximetry 98 99 Oxygen Delivery Method 05/31/24 05:01 05/31/24 05:01 Temperature Pulse Rate 65 Respiratory Rate Blood Pressure 113/75 Pulse Oximetry 98 Oxygen Delivery Method Room Air Medical Decision Making Lab Data Lab results reviewed: Yes I reviewed the patient's lab results. 05/31/24 04:20 05/31/24 04:20 Labs: Lab Results 05/31/24 Range/Units 04:20 WBC 7.8 (4.5-11.0) X10^3/uL RBC 4.11 (4.0-5.2) X10^6/uL Hgb 13.1 (12.0-16.0) g/dL Hct 36.9 (36-46) % MCV 89.8 (80-100) fL MCH 31.8 (26-34) PG MCHC 35.4 (30-36) % RDW 14.5 (11.6-14.8) % Plt Count 174 (150-400) X10^3/uL Neut % (Auto) 65.7 (50-75) % Lymph % (Auto) 24.8 L (25-40) % [place] % (Auto) 8.5 (3-14) % Eos % (Auto) 0.6 L (2-4) % Baso % (Auto) 0.4 (0-2) % Neut # (Auto) 5100 (0909-6960) /uL Lymph # (Auto) 1900 (9654-1294) /uL [place] # (Auto) 700 (0-900) /uL Eos # (Auto) 0 (0-450) /uL Baso # (Auto) 0 (0-100) /uL Sodium 135 L (137-145) mmol/L Potassium 3.7 (3.4-5.1) mmol/L Chloride 105 (98-107) mmol/L Carbon Dioxide 24 (22-32) mmol/L BUN 7 (7-17) mg/dL Creatinine 0.50 L (0.52-1.04) mg/dL Estimated GFR > 60 (>60) mL/min BUN/Creatinine Ratio 14.0 (6-22) Glucose 91 (70-100) mg/dL Calcium 9.2 (8.4-10.2) mg/dL Total Bilirubin 0.5 (0.2-1.3) mg/dL AST 19 (14-36) IU/L ALT 16 (<35) IU/L Alkaline Phosphatase 54 (38-126) U/L Total Protein 6.9 (6.3-8.2) g/dL Albumin 3.9 (3.5-5.0) g/dL Globulin 3.0 (1.7-4.1) g/dL Albumin/Globulin Ratio 1.3 (1.0-2.8) Lipase 31 (23-300) U/L Urine Dip Bedside Urine Glucose Negative Bedside Urine Bilirubin - Negative Bedside Urine Ketone +/- 5 Urine Specific [place] 1.025 Bedside Urine Occult Blood - Negative Bedside Urine pH 5.5 Bedside Urine Protein +/- 15 Bedside Urine Urobilinogen - Negative Bedside Urine Nitrite - Negative Bedside Urine Leukocytes - Negative Esterase Point of care testing: Urine Dip Bedside Urine Glucose Negative Bedside Urine Bilirubin - Negative Bedside Urine Ketone +/- 5 Urine Specific [place] 1.025 Bedside Urine Occult Blood - Negative Bedside Urine pH 5.5 Bedside Urine Protein +/- 15 Bedside Urine Urobilinogen - Negative Bedside Urine Nitrite - Negative Bedside Urine Leukocytes - Negative Esterase Imaging Data US - OB: Radiologist's Impression: Single live intrauterine fetus corresponding to the mean gestational age of 18 weeks and 4 days. Appendix is not visualized. MDM Narrative Medical decision making narrative: Urinalysis is not consistent with a UTI. She has no blood in her urine. The pain does seem to come and go. It is in her right lower quadrant. During my initial exam she would some discomfort but was not a surgical abdomen. No vaginal bleeding. Ultrasound shows single intrauterine corresponding to her state gestational age. She was no leukocytosis. My concern for appendicitis is actually fairly low given her clinical presentation and the fact that she does not have a fever, no leukocytosis, colicky nature of the pain. I do feel that we should hold on a CT/MRI for now however the patient was given return precautions history she was what admitted on what she can take because of her status. She has Zofran at home. She states the Zofran does cause her to have some constipation but she takes MiraLax for that occasionally as needed. Will discharge patient home with the instructions to contact her OB provider when the office is open later today for follow-up. Patient expressed understanding and agreement. Discharge Plan Departure Patient Disposition: Home Clinical Impression: Abdominal pain during Instructions: DI for Abdominal Pain-Adult Activity Restrictions/Additional Instructions: Recommend that you continue to take all of your medications as directed. When the OB office opens later today recommend that you contact them for a follow-up. Return to the emergency department for new symptoms. Prescriptions: No Action ondansetron 8 mg tablet,disintegrating 8 mg PO Q8H Qty: 90 1RF prochlorperazine maleate [Compazine] 5 mg tablet 5 mg PO TID PRN (Reason: nausea and vomiting) Qty: 60 3RF famotidine [Pepcid AC] 20 mg tablet 20 mg PO BID [id number] oil 400 mcg-35 mg -25 mg-5 mg tablet,chewable PO ascorbic acid (vitamin C) 500 mg tablet 500 mg PO DAILY Dramamine 25 mg tablet,chewable 50 mg PO Q4-6H PRN polyethylene glycol 3350 [Miralax] 17 gram/dose powder 17 g PO DAILY Referrals: Tate Michel DO [Primary Care Provider] - Stand Alone Forms: Patient Portal/API
[2024-05-31 04:23] VITALS: BP 108/60; PULSE 63; O2SAT 97
[2024-05-31 04:30] VITALS: BP 117/64; PULSE 66; O2SAT 98
[2024-05-31 04:38] LABS: Add Manual Diff / Slide Review NO; Basophils Absolute Auto 0 /uL (0-100); Basophils Percent Auto 0.4 % (0-2); Eosinophils Absolute Auto 0 /uL (0-450); Eosinophils Percent Auto 0.6 % (2-4); Hematocrit 36.9 % (36-46); Hemoglobin 13.1 g/dL (12.0-16.0); Lymphocytes Absolute Auto 1900 /uL (1100-4500); Lymphocytes Percent Auto 24.8 % (25-40); Mean Corpuscular HGB Conc 35.4 % (30-36); Mean Corpuscular Hemoglobin 31.8 PG (26-34); Mean Corpuscular Volume 89.8 fL (80-100); Monocytes Absolute Auto 700 /uL (0-900); Monocytes Percent Auto 8.5 % (3-14); Neutrophils Absolute Auto 5100 /uL (1500-7000); Neutrophils Percent Auto 65.7 % (50-75); Platelet Count 174 X10^3/uL (150-400); Red Blood Cell Count 4.11 X10^6/uL (4.0-5.2); Red Cell Distribution Width 14.5 % (11.6-14.8); White Blood Cell Count 7.8 X10^3/uL (4.5-11.0)
[2024-05-31 04:48] LABS: Alanine Aminotransferase 16 IU/L (<35); Albumin 3.9 g/dL (3.5-5.0); Albumin Globulin Ratio 1.3 (1.0-2.8); Alkaline Phosphatase 54 U/L (38-126); Aspartate Aminotransferase 19 IU/L (14-36); Bilirubin Total 0.5 mg/dL (0.2-1.3); Blood Urea Nitrogen 7 mg/dL (7-17); Calcium 9.2 mg/dL (8.4-10.2); Carbon Dioxide 24 mmol/L (22-32); Chloride 105 mmol/L (98-107); Estimated Glomerular Filt Rate > 60 mL/min (>60); Glucose 91 mg/dL (70-100); HEMOLYSIS < 15 (0-50); Lipase 31 U/L (23-300); Potassium 3.7 mmol/L (3.4-5.1); Sodium 135 mmol/L (137-145); Total Protein 6.9 g/dL (6.3-8.2)
[2024-05-31 05:00] VITALS: PULSE 59; O2SAT 99
[2024-05-31 05:01] VITALS: BP 113/75; PULSE 65; O2SAT 98
[2024-05-31 05:44] LABS: Bacteria Urine Moderate (10-30); Culture Indicated Urine Cult Not Indicated; Mucus Urine 2+ (Negative); RBC Urine None Seen (0-5/HPF); Squamous Epithelial Cell Urine 0-1 /HPF (0-5/HPF); Urine Volume 10mL (spun); WBC Urine 0-1/HPF (0-5/HPF)
== END 2024-05-31 05:55 | disposition home or self-care (01) ==
PROVIDERS: Emergency Provider Emergency Medicine; PCP Family Medicine
DX: O26.892 Other specified pregnancy related conditions, second trimester (principal); R10.11 Right upper quadrant pain; Z3A.19 19 weeks gestation of pregnancy
CPT/HCPCS: 36415; 76815; 80053; 81003; 81015; 83690; 85025; 87086; 99283; 99284

== ENCOUNTER → 2024-06-01 09:57 | Outpatient (CLI) | payer OTHER, SELFPAY | PROVIDERS: PCP Family Medicine; Referring Provider Obstetrics & Gynecology; Visit Provider Obstetrics & Gynecology | DX: Z36.0 Encounter for antenatal screening for chromosomal anomalies (principal) | CPT/HCPCS: 36415; 82105 ==

== ENCOUNTER → 2024-06-03 12:03 | Outpatient (CLI) | payer OTHER, SELFPAY | PROVIDERS: PCP Family Medicine; Visit Provider Obstetrics & Gynecology | DX: O20.9 Hemorrhage in early pregnancy, unspecified (principal) | CPT/HCPCS: 87086 ==

== ENCOUNTER → 2024-06-09 07:53 | Outpatient (CLI) | payer OTHER, SELFPAY ==
--- NOTE | 2024-06-09 07:54 | DI.US.S_ITS ---
PROCEDURE: US OB >= 14 WEEKS FETUS INDICATIONS: 20 week anatomy OUTSIDE/PRIOR DATING DATA: Last menstrual period (LMP): 01/22/2024 LMP-based estimated date of delivery (JUSTYNA): 10/28/2024 The calculations are made using the working JUSTYNA of 10/28/2024 TECHNIQUE: Real-time scanning was performed of the fetus, with image documentation and biometric measurements. Endovaginal scanning: Not performed COMPARISON: [facility], , OB >= 14 WEEKS FETUS, 08/18/2023, 19:14. FINDINGS: General: A single living intrauterine gestation is present. Presentation: Vertex Placenta: Placental position is anterior, without previa. Amniotic fluid index: 14.9 cm, normal range is 5-24 cm. Single deepest vertical pocket is 4.9 cm. heart rate: 155 beats per minute. Maternal cervical canal: 4.5 cm long. Normal lower limit is 2.5 cm. biometrics: Biparietal diameter: 4.9 cm, 19 weeks, 2 days. Head circumference: 16.2 cm, 19 weeks, 0 day Abdominal circumference: 14.1 cm, 19 weeks, 3 days Femur length: 3.2 cm, 19 weeks, 6 days Clinically estimated gestational age: 19 weeks, 6 days Composite gestational age from present scan: 19 weeks, 3 days Estimated weight and percentile: 300 g, 30% Anatomic survey: Neuro: Ventricles are non-dilated at less than 10 mm. Cisterna magna is normal at 3-11 mm. Cerebellum is normal in size and morphology. Nuchal skin fold: Normal at less than 6 mm between 14-21 weeks gestational age. Face: Nose and lips, facial profile are normal. Spine: No evidence for spina bifida. Heart: 4-chambered heart is present, with normal ventricular outflow tracts. Diaphragm: Diaphragm is intact. Stomach: Left-sided stomach is present. Kidneys: No hydronephrosis. Bilateral renal calices are measures up to 3-4 mm in diameter. Normal is less than 5 mm in 2nd trimester, less than 7 mm in 3rd trimester. Cord: 3-vessel cord has orthotopic insertion. Bladder: Normal in size. Extremities: All 4 extremities identified. IMPRESSION: 1. Single live intrauterine gestation with fetus in vertex presentation. heart rate is 155 beats per minute. Normal RAPHAEL at 14.9 cm. Normal growth. Estimated weight is at 30%. 2. Bilateral renal calices measure up to 3-4 mm in diameter which is within the upper limits of normal. Normal anatomic survey. We strive to produce accurate, complete, and clear reports of imaging services. To assist us in improving patient care, this report was composed using standard report templates and voice recognition software. Therefore, it may contain abnormal punctuation, insertions and/or omissions. Occasional wrong-word or sound-alike substitutions may occur. Though we review the report and make efforts to correct it, we do recommend that the report be read carefully in proper context to recognize any text inaccuracies. Dictated by: Azeem Coleman M.D. on 06/10/2024 at 16:50 Approved by: Azeem Coleman M.D. on 06/10/2024 at 16:54
== END ==
LOC: US 07:54
PROVIDERS: PCP Family Medicine; Referring Provider Obstetrics & Gynecology; Visit Provider Obstetrics & Gynecology
DX: Z34.82 Encounter for supervision of other normal pregnancy, second trimester (principal); Z3A.19 19 weeks gestation of pregnancy
CPT/HCPCS: 76811

== ENCOUNTER → 2024-09-09 14:27 | Outpatient (CLI) | payer OTHER, SELFPAY | PROVIDERS: PCP Family Medicine; Referring Provider Obstetrics & Gynecology; Visit Provider Obstetrics & Gynecology | DX: R82.998 Other abnormal findings in urine (principal); R80.9 Proteinuria, unspecified | CPT/HCPCS: 87086 ==

== ENCOUNTER → 2024-10-01 09:56 | Outpatient (CLI) | payer OTHER, SELFPAY ==
[2024-10-02 11:23] LABS: Strep Grp B PCR NEG for Grp B Strep
== END ==
PROVIDERS: PCP Family Medicine; Visit Provider Obstetrics & Gynecology
DX: Z34.93 Encounter for supervision of normal pregnancy, unspecified, third trimester (principal)
CPT/HCPCS: 87653

== ENCOUNTER 2024-10-13 14:12 | Outpatient (CLI) | payer OTHER, SELFPAY | END 2024-10-13 15:10 | disposition home or self-care (01) | LOC: LABOR 14:31 → OB 10-14 06:25 | PROVIDERS: PCP Family Medicine; Referring Provider Obstetrics & Gynecology; Visit Provider Obstetrics & Gynecology | DX: O47.1 False labor at or after 37 completed weeks of gestation (principal); Z3A.37 37 weeks gestation of pregnancy | CPT/HCPCS: 59025; G0378; G0379 ==

== ENCOUNTER 2024-10-24 16:17 | Inpatient (IN) | payer OTHER, SELFPAY ==
[2024-10-24 17:36] LABS: Add Manual Diff / Slide Review NO; Basophils Absolute Auto 0 /uL (0-100); Basophils Percent Auto 0.4 % (0-2); Eosinophils Absolute Auto 0 /uL (0-450); Eosinophils Percent Auto 0.4 % (2-4); Hematocrit 31.5 % (36-46); Hemoglobin 10.1 g/dL (12.0-16.0); Lymphocytes Absolute Auto 2200 /uL (1100-4500); Lymphocytes Percent Auto 19.7 % (25-40); Mean Corpuscular HGB Conc 32.1 % (30-36); Mean Corpuscular Hemoglobin 23.1 PG (26-34); Monocytes Absolute Auto 800 /uL (0-900); Monocytes Percent Auto 7.4 % (3-14); Neutrophils Absolute Auto 8000 /uL (1500-7000); Neutrophils Percent Auto 72.1 % (50-75); Platelet Count 185 X10^3/uL (150-400); Red Blood Cell Count 4.37 X10^6/uL (4.0-5.2); Red Cell Distribution Width 17.5 % (11.6-14.8); White Blood Cell Count 11.1 X10^3/uL (4.5-11.0)
[2024-10-24] MEDS: LACTATED RINGERS 1,000 ML 100 ML IV (18:06)
--- NOTE | 2024-10-24 18:07 | PM.AN.REGBLK ---
Regional Block Pre-procedure Procedure: Continuous Lumbar Epidural for L&D Attending OB provider: Jefry Flores PMH/ROS narrative: Healthy requesting CSE for labor pain. PSH/Anesthesia history narrative: Previous vaginal delivery with lumbar epidural. Some nausea and hypotension following epidural placement last year. Exam narrative: See pre-anesthesia eval form. ASA Class: II Labs: Hct 31.5 % (36-46) L 10/24/24 16:45 Plt Count 185 X10^3/uL (150-400) 10/24/24 16:45 Medications: Current Medications Generic Name Dose Route Start Last Admin Trade Name Freq PRN Reason Stop Dose Admin Calcium Carbonate 1,000 mg 10/24/24 17:06 Calcium Carbonate 500 Mg Tab PO Q2HR PRN Dyspepsia Carboprost Tromethamine 250 mcg 10/24/24 17:06 Carboprost 250 Mcg/Ml Ampul IM Q90M PRN Bleeding Fentanyl 100 mcg 10/24/24 17:06 Fentanyl 100 Mcg/2 Ml Inj IV Q1H PRN Pain, Severe (7-10) Oxytocin/Lactated Ringer's 30 unit in 500 mls @ 200 mls/hr 10/24/24 17:06 Oxytocin Premix IV CONT PRN Bleeding Protocol Tranexamic Acid 1,000 mg/ 100 mls @ 600 mls/hr 10/24/24 17:06 Sodium Chloride IV NOW PRN Bleeding Lactated Ringer's 1,000 mls @ 100 mls/hr 10/24/24 17:15 10/24/24 18:06 Lactated Ringers IV 10/25/24 03:14 100 mls/hr CONT JUSTINE Administration Lidocaine HCl 20 ml 10/24/24 17:06 Lidocaine 1% 20 Ml INJ INTRA-OP PRN Post Delivery Methylergonovine Maleate 0.2 mg 10/24/24 17:06 Methylergonovine 0.2 Mg Tablet PO Q6HR PRN Heavy Bleeding Methylergonovine Maleate 0.2 mg 10/24/24 17:06 Methylergonovine 0.2 Mg/Ml Vial IM NOW PRN Bleeding Mineral Oil 30 ml 10/24/24 17:06 Mineral Oil 30 Ml Udc TOP PRN PRN Version Misoprostol 800 mcg 10/24/24 17:06 Misoprostol 200 Mcg Tablet MN NOW PRN Bleeding Misoprostol 400 mcg 10/24/24 17:06 Misoprostol 200 Mcg Tablet SL NOW PRN Bleeding Nalbuphine HCl 5 mg 10/24/24 18:03 Nalbuphine 20 Mg/Ml Ampul IV Q6H PRN PRURITIS Naloxone HCl 0.2 mg 10/24/24 17:06 Naloxone 0.4 Mg/Ml Vial IV Q2MIN PRN Opiate Reversal Naloxone HCl 0.4 mg 10/24/24 18:03 Naloxone 0.4 Mg/Ml Vial IV Q2MIN PRN Opiate Reversal Ondansetron HCl 4 mg 10/24/24 17:06 Ondansetron 4 Mg/2 Ml Inj IV Q4HR PRN Nausea And Vomiting Ondansetron HCl 4 mg 10/24/24 18:03 Ondansetron 4 Mg/2 Ml Inj IV 10/25/24 18:03 Q6HR PRN Nausea Oxytocin 10 unit 10/24/24 17:06 Oxytocin 10 Unit/Ml Vial IM NOW PRN Bleeding Allergies: Allergies Allergy/AdvReac Type Severity Reaction Status Date / Time latex Allergy Intermediate Hives Verified 10/22/24 14:07 promethazine AdvReac Severe Vomiting Verified 10/22/24 14:07 diphenhydramine AdvReac Intermediate Shakiness Verified 10/22/24 14:07 [From Ann-Marie] Procedure Insertion date: 10/24/24 Insertion time: 17:43 Prep/Local: 1% lidocaine (3mL to skin, CHG for skin prep) Interspace: L3/4 Patient position: sitting Needle: 18 gauge Hustead (27g Pencan through hustead for CSE. 1mL MPF 0.25% bupivacaine instilled following +CSF drip.) Loss of resistance with: saline RY at (cm): 6 Catheter placed at SKIN (cm): 12 Catheter in SPACE (cm): 6 Sensory level: T10 Insertion: Yes CSF, No Blood, No Paresthesia with insertion, No Paresthesia with injection and No Test dose reaction Initial Medications TEST DOSE time: 17:45 TEST DOSE: 1.5% lidocaine with epinephrine 1:200k (mL): 3 Infusion INFUSION: 0.125% bupivacaine and with fentanyl 2 mcg/mL Initial rate (mL/hr): 8 Post-procedure Anesthesia date START: 10/24/24 Anesthesia time START: 17:22 Anesthesia date END: 10/24/24 Anesthesia time END: 23:47 Post-procedure Anesthesia Assessment: Yes CV function: HR/BP stable, Yes Resp function: RR/sat/airway adequate, Yes Post-op hydration adequate, Yes Pain control adequate, Yes Nausea & vomiting absent, Yes Temperature > 36 C, Yes Mental status appropriate and No Anesthesia complications
[2024-10-24] MEDS: LACTATED RINGERS 500 ML 1000 ML IV (18:08)
[2024-10-24 19:48] VITALS: BP 120/76
[2024-10-24] MEDS: ONDANSETRON 4 MG/2 ML INJ IV (20:43)
--- NOTE | 2024-10-24 21:21 | P.HPOB_ITS ---
OB HPI Date/Time Date of admission: 10/24/24 Date Patient Seen: 10/24/24 Time Patient Seen: 21:22 History of Present Condition Chief complaint: obs JUSTYNA Calculator 2 Estimated Delivery Date Method Current WG Current Estimate 10/28/24 LMP (Uncertain) 39w 4d Other Estimates 10/31/24 Ultrasound #1 39w 1d Estimated Gestational Age (weeks): 39+3 : 5 Para: 1 Narrative: 29-year-old presents labor. Onset of contractions at about 0730 this morning, became more intense at approximately 1500 before presenting to labor and delivery. Noted to be 5 cm dilated at that time. Endorses normal movement. Denies vaginal bleeding or leakage of fluid. course notable for anxiety/depression that was managed without medication. care: good care Dating criteria OB: LMP confirmed by 1st trimester US Ultrasounds: normal 1st trimester US and normal mid trimester US Obstetrical complications: none Medical complications OB: psychiatric (anxiety/depression) Preadmission Labs Last OB Lab Results: 2 Blood Type A Positive 10/24/24 16:45 Antibody Screen Negative 10/24/24 16:45 Hct 31.5 % (36-46) L 10/24/24 16:45 Hgb 10.1 g/dL (12.0-16.0) L 10/24/24 16:45 Hep Bs Antigen Negative s/c (NEGATIVE) 04/20/24 11:35 Hepatitis C Antibody Negative s/c (NEGATIVE) 04/20/24 11:35 Rubella Antibody 42.1 IU/mL (>15) 04/20/24 11:35 VZV IgG Antibody 1005 index (Immune >165) 04/20/24 11:35 Glucose 1 Hr 50 gm 131 mg/dL (76-139) 07/03/23 14:54 Group B Strep (PCR) Neg for grp b strep 10/01/24 09:45 -: Chlamydia screen: negative and Gonorrhea screen: negative -: PAP smear: Normal Genetic Screens: Quad screen: Normal and Cell-free DNA: Normal Prior (ies) Past Pregnancies Del. Date GA/Weeks Labor Lgth Wt Sex Route Outcome Anesthesia Place Delv Breastfeed Preg Comp Name 10/23/16 10.5 elective 11/23/17 4-6 spontaneous 05/25/19 4-6 spontaneous 09/27/23 37.1 6 lb 7 oz Female vaginal live - full term ep idural IH 3.5 months other [place] Delivery Date: 10/23/16 Last Updated by: Subha Lebron RN meds only, no complications Delivery Date: 11/23/17 Last Updated by: Subha Lebron RN passed spontaneously, no complications Delivery Date: 05/25/19 Last Updated by: Subha Lebron RN passed spontaneously, no complications Delivery Date: 09/27/23 Last Updated by: Subha Lebron RN cholestasis, hyperemesis Evaluation Evaluation Baseline heart rate: 130 Variability: Moderate (11-25) monitor accelerations: Present Monitor Decelerations: Absent Contraction Frequency (minutes): 2 Uterine Contraction Intensity: Moderate Category of Tracing: Reactive Status: Category l Dilation (cm): 10 Effacement (%): 100 station: -1 Position of cervix: anterior Consistency: soft Comments: AROM w/clear fluid PFSH Medical History 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 Restless leg syndrome in Anemia affecting Acne (~2017) Substance abuse (~2013) Chicken pox (~2001) Ovarian cyst (~2017) Incompetent nasal valve Nasal obstruction Hypertrophy, nasal, turbinate Deviated septum Ruptured ovarian cyst (2017) Rib injury (2019) MRSA (methicillin resistant Staphylococcus aureus) (2014) Anemia Nasal congestion Surgical History (Updated 05/01/23 @ 18:54 by Jody Odom) Anesthesia H/O nasal septoplasty (~04/2020) [place] teeth removed (05/06/13) Family History (Updated 03/17/24 @ 14:43 by Subha Lebron RN) Mother Heart valve disease SVT (supraventricular tachycardia) Grandmother SVT (supraventricular tachycardia) Grandfather S/P CABG x 4 Heart disease Father Family estrangement Uncle Down syndrome Social History marital status: number of children: 1 household members: spouse and children lives independently: Yes caregiver/support person: Yes housing: house pets and animals: Yes (snakes; reviewed precautions) education level: high school occupational status: unemployed current occupational exposures/hazards: No special neel needs: No travel history: recent (domestic only) seatbelt use: always water heater temp set < 120 deg: Yes working smoke detector in home: Yes fire extinguisher in home: Yes carbon monox detector in home: Yes firearms in home: Yes firearms unloaded and locked: No (but is purchasing one shortly) do you feel safe at home: Yes Smoking Status: Never smoker Tobacco: How many years used: 9 alcohol intake: former (rarely when not ) substance use type: marijuana (not while /) during the past year weight has: other (very underweight prior to last ; back to healthy weight since delivery 6 months ago) well-balanced diet: about half the time daily servings fruits/ve-4 caffeine: Yes (1 cup coffee in AM) Type(s) of exercise: walking frequency: 3-4 times per week Meds Home Medications and Allergies Home Medications Medication Instructions Recorded Confirmed Type [id number] 400 mcg-om3 35 mg-dha 25 tab PO 03/17/24 10/22/24 History mg-epa 5 mg-fish oil chewable tablet ascorbic acid (vitamin C) 500 mg 500 mg PO DAILY 03/17/24 10/22/24 History tablet dimenhydrinate 25 mg chewable 50 mg PO Q4-6H PRN 03/17/24 10/22/24 History tablet (Dramamine) famotidine 20 mg tablet (Pepcid AC) 20 mg PO BID Acid reflux, heartburn 03/17/24 10/22/24 History polyethylene glycol 3350 17 17 g PO DAILY 03/17/24 10/22/24 History gram/dose oral powder (Miralax) prochlorperazine maleate 5 mg 5 mg PO TID PRN nausea and 03/23/24 10/22/24 Rx tablet (Compazine) vomiting #60 tabs ondansetron 8 mg disintegrating 8 mg PO Q8H #90 tabs 04/13/24 10/22/24 Rx tablet clonazepam 1 mg tablet (Klonopin) 1 mg PO BID #60 tabs 06/01/24 10/22/24 Rx Allergies Allergy/AdvReac Type Severity Reaction Status Date / Time latex Allergy Intermediate Hives Verified 10/22/24 14:07 promethazine AdvReac Severe Vomiting Verified 10/22/24 14:07 diphenhydramine AdvReac Intermediate Shakiness Verified 10/22/24 14:07 [From Ann-Marie] Review of Systems Review of Systems ROS: Yes All systems reviewed with the patient and are negative except as otherwise documented OB Exam Narrative Exam Narrative: General: Well-nourished, no distress HEENT: NC/AT, EOMI, moist mucous membranes CV: RRR, normal S1 S2, no m/g/r Resp: CTAB Abd: Gravid, soft, NTND, +BS Ext: Full ROM, no edema Skin: No rash or lesions Neuro: A&O x3, normal tone, no focal deficits Objective Labs 10/24/24 16:45 Labs: Laboratory Results - last 24 hr 10/24/24 16:45 WBC 11.1 H RBC 4.37 Hgb 10.1 L Hct 31.5 L MCV 72.0 L MCH 23.1 L MCHC 32.1 RDW 17.5 H Plt Count 185 Neut % (Auto) 72.1 Lymph % (Auto) 19.7 L [place] % (Auto) 7.4 Eos % (Auto) 0.4 L Baso % (Auto) 0.4 Neut # (Auto) 8000 H Lymph # (Auto) 2200 [place] # (Auto) 800 Eos # (Auto) 0 Baso # (Auto) 0 Blood Type A Positive Antibody Screen Negative Assessment and Plan Assessment and Plan Assessment and Plan narrative: 29-year-old at GA 39+3 weeks presenting for labr. notable for anxiety/depression managed w/o medication. -admit to L&D -GBS negative, ppx not indicated -pain control prn if desired by patient -PPH risk low -VTE risk low, SCDs with epidural -anticipate vaginal delivery Time-Based Coding :: 20 minutes spent with patient and on the chart (including review of chart, obtaining history, exam, reviewing outside data, placing orders, documenting exam and treatment plan, and counseling patient) on 10/24/2024.
--- NOTE | 2024-10-25 | PATH_ITS ---
[facility] Accession Number: [id number] No. of containers..01 Tissue . 01 Material submitted: . fallopian tube - BILATERAL FALLOPIAN TUBES . 01 Diagnosis: BILATERAL FALLOPIAN TUBES, BILATERAL SALPINGECTOMY: Bilateral fimbriated fallopian tubes with benign paratubal cysts and focal benign decidualization. Negative for malignancy. MRV 10/30/2024 1214 Local . 01 Electronically signed: . Raysa Abel DO, Pathologist NPI- [id number] . 01 Gross description: . Received in formalin with two patient identifiers and bilateral fallopian tubes, are two unoriented fimbriated fallopian tubes, 9.9 x 0.7 cm and 4.9 x 0.6 cm. Also in the container is a nonfimbriated tubular soft tissue fragment, 2.4 cm in length x 0.4 cm in diameter and a detached cystic structure, 1.0 x 1.0 x 0.3 cm. All three tubular fragments have arroyo to violaceous, smooth serosa with cysts up to 1.0 cm in greatest dimension filled with arroyo serous fluid. The lumens are stellate and unremarkable. Design Printer Balloon sections are submitted as follows: . A1: Longer fallopian tube to include one-half of bisected fimbriae and cross sections. A2: Gideon fallopian tube to include to one-half of bisected fimbriae and cross sections. A3: Nonfimbriated tubular fragment and intact detached cyst. ([id number]) /MRV 10/26/2024 1905 Local . 01 Pathologist provided ICD-10: Z30.2 . 01 CPT . 686839 Specimen Comment: A courtesy copy of this report has been sent to [phone] Performed at: [address] [facility] [id number] MD Dinh Rogers MD Phone: [phone]
--- NOTE | 2024-10-25 00:25 | PM.OBPRVD ---
Labor & Delivery Delivery date: 10/25/24 Delivery Time: 23:47 Delivery augmentation: rupture of membranes Delivery monitor: external FHT Route of delivery: L&D Laceration Description: Perineal - 2nd Degree Delivery repair: vicryl Estimated blood loss (mL): 350 Quantitative Blood Loss: 419 Anesthesia Type: Epidural Narrative: Patient fully dilated at 2116 and began pushing at 2300. Spontaneous vaginal delivery of a viable female infant in the OA position occurred at 2347. The was suctioned and stimulated at the perineum, and gave appropriate cry with movement of all extremities. Delayed cord clamping was observed for 60 seconds. The cord was clamped and cut, and the handed to mother for skin to skin. Cord blood and segment were obtained. The placenta was delivered without difficulty using gentle cord traction and found to be intact with a 3-vessel cord. After fundal massage the uterus was firm and bleeding stopped. The vagina and cervix were examined for lacerations. A second degree perineal laceration was noted and repaired with 3-0 vicryl suture in the usual fashion. Patient stable with rooming in, bonding skin to skin and attempting to breastfeed. [place] Baby 1: gender: Female Presentation: vertex Placenta delivery description: Spontaneous Cord Vessel Description: 3 Vessels score (1 min): 8 score (5 min): 9 weight: 7 lb 1.723 oz Plan for aftercare: Routine care
[2024-10-25] MEDS: IBUPROFEN 600 MG TABLET PO (09:02)
[2024-10-25] MEDS: ACETAMINOPHEN 325 MG TABLET 650 MG PO ×2 (09:03→23:11)
[2024-10-25] MEDS: DERMOPLAST SPRAY 20% 60 ML 1 SPRAY TOP (09:04)
[2024-10-25] MEDS: FERROUS SULFATE 325 MG TABLET PO (09:04)
[2024-10-25] MEDS: LANOLIN OINT 7 GM 1 APPLIC TOP (12:35)
[2024-10-25] MEDS: WITCH HAZEL/GLYCERIN PADS 1 EACH TOP (12:36)
[2024-10-25] MEDS: LACTATED RINGERS 1,000 ML 100 ML IV (15:44)
[2024-10-25 15:50] VITALS: BP 118/74; PULSE 64; RESP 16; TEMP 36.9; O2SAT 99; BMI 22.8
--- NOTE | 2024-10-25 16:40 | PM.CN.IH.1 ---
History of Present Illness Consult details Date Patient Seen: 10/25/24 Time Patient Seen: 16:41 Chief complaint: L&D Reason for consult: Bilateral salpingectomy Narrative: Patient is a 29-year-old 5 para 2 who desires permanent sterilization. She had a spontaneous vaginal delivery without complication last evening. History of cholestasis in . History of wisdom teeth extraction and nasal septoplasty. Meds Home Medications and Allergies Home Medications Medication Instructions Recorded Confirmed Type [id number] 400 mcg-om3 35 mg-dha 25 tab PO 03/17/24 10/22/24 History mg-epa 5 mg-fish oil chewable tablet ascorbic acid (vitamin C) 500 mg 500 mg PO DAILY 03/17/24 10/22/24 History tablet dimenhydrinate 25 mg chewable 50 mg PO Q4-6H PRN 03/17/24 10/22/24 History tablet (Dramamine) famotidine 20 mg tablet (Pepcid AC) 20 mg PO BID Acid reflux, heartburn 03/17/24 10/22/24 History polyethylene glycol 3350 17 17 g PO DAILY 03/17/24 10/22/24 History gram/dose oral powder (Miralax) prochlorperazine maleate 5 mg 5 mg PO TID PRN nausea and 03/23/24 10/22/24 Rx tablet (Compazine) vomiting #60 tabs ondansetron 8 mg disintegrating 8 mg PO Q8H #90 tabs 04/13/24 10/22/24 Rx tablet clonazepam 1 mg tablet (Klonopin) 1 mg PO BID #60 tabs 06/01/24 10/22/24 Rx Allergies Allergy/AdvReac Type Severity Reaction Status Date / Time latex Allergy Intermediate Hives Verified 10/22/24 14:07 promethazine AdvReac Severe Vomiting Verified 10/22/24 14:07 diphenhydramine AdvReac Intermediate Shakiness Verified 10/22/24 14:07 [From Benadryl] Exam Vital Signs (past 8 hours): - 10/25/24 15:50 Temperature 98.4 F Pulse Rate 64 Respiratory Rate 16 Blood Pressure 118/74 Pulse Oximetry 99 Oxygen Delivery Method Room Air Oxygen Delivery Method Room Air Narrative Exam Narrative: HEENT: [No thyromegaly, no anterior cervical or supraclavicular lymphadenopathy.] Lungs:[Clear to auscultation bilaterally, no wheezes.] Cardiovascular: [Regular rate and rhythm, no murmurs, rubs, or gallops]. Abdomen: No scars. No hepatosplenomegaly. Fundus: Firm at U -1 Extremities: No edema, negative Homans Objective Labs 10/24/24 16:45 Labs: Laboratory Results - last 24 hr 10/24/24 16:45 WBC 11.1 H RBC 4.37 Hgb 10.1 L Hct 31.5 L MCV 72.0 L MCH 23.1 L MCHC 32.1 RDW 17.5 H Plt Count 185 Neut % (Auto) 72.1 Lymph % (Auto) 19.7 L [place] % (Auto) 7.4 Eos % (Auto) 0.4 L Baso % (Auto) 0.4 Neut # (Auto) 8000 H Lymph # (Auto) 2200 [place] # (Auto) 800 Eos # (Auto) 0 Baso # (Auto) 0 Blood Type A Positive Antibody Screen Negative [facility] Medical History 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 Restless leg syndrome in Anemia affecting Acne (~2017) Substance abuse (~2013) Chicken pox (~2001) Ovarian cyst (~2017) Incompetent nasal valve Nasal obstruction Hypertrophy, nasal, turbinate Deviated septum Ruptured ovarian cyst (2017) Rib injury (2019) MRSA (methicillin resistant Staphylococcus aureus) (2014) Anemia Nasal congestion Surgical History (Updated 05/01/23 @ 18:54 by Jody Odom) Anesthesia H/O nasal septoplasty (~04/2020) [place] teeth removed (05/06/13) Family History (Updated 03/17/24 @ 14:43 by Subha Lebron RN) Mother Heart valve disease SVT (supraventricular tachycardia) Grandmother SVT (supraventricular tachycardia) Grandfather S/P CABG x 4 Heart disease Father Family estrangement Uncle Down syndrome Social History marital status: number of children: 1 household members: spouse and children lives independently: Yes caregiver/support person: Yes housing: house pets and animals: Yes (snakes; reviewed precautions) education level: high school occupational status: unemployed current occupational exposures/hazards: No special neel needs: No travel history: recent (domestic only) Safety seatbelt use: always water heater temp set < 120 deg: Yes working smoke detector in home: Yes fire extinguisher in home: Yes carbon monox detector in home: Yes firearms in home: Yes firearms unloaded and locked: No (but is purchasing one shortly) do you feel safe at home: Yes Tobacco & Substance Use Smoking Status: Former smoker Tobacco: How many years used: 9 alcohol intake: current substance use type: marijuana (not while /) Diet and Exercise during the past year weight has: other (very underweight prior to last ; back to healthy weight since delivery 6 months ago) well-balanced diet: about half the time daily servings fruits/ve-4 caffeine: Yes (1 cup coffee in AM) Type(s) of exercise: walking frequency: 3-4 times per week Assessment & Plan Assessment & Plan narrative: Assessment: 29-year-old 5 para 2 who desires permanent sterilization Plan: Mini-laparotomy with bilateral salpingectomy The risks, benefits, and alternatives to the procedure were explained to the patient. The risks including bleeding, infection, injury to the ovaries, uterus, or ureters. She understands these risks and agrees to proceed. A full par Q was held and consent form was signed. Time-Based Coding :: [TOTAL MINUTES] spent with patient and on the chart (including review of chart, obtaining history, exam, reviewing outside data, placing orders, documenting exam and treatment plan, and counseling patient) on [DATE]. PROFEE Charge Codes Inpatient or Observation consultation: 60250
--- NOTE | 2024-10-25 16:43 | PM.PREOP ---
Pre-operative Note Interval Note History & Physical reviewed/Exam performed by Physician: Yes Changes to H&P: No H&P completed within 30 days and has changed as indicated here:: 10/25/24
[2024-10-25] MEDS: ACETAMINOPHEN IV 1,000 MG/100 ML VIAL 400 MG IV (16:50)
--- NOTE | 2024-10-25 16:58 | SUR.OPER ---
Supine on padded OR bed, head on pillow, arms secured on padded arm boards at <90 degrees abduction, legs uncrossed, safety belt at thigh, tape over blanket over lower legs.
[2024-10-25] MEDS: BUPIVACAINE 0.5% W/ EPI (PF) 30 ML VIAL INJ (17:13)
--- NOTE | 2024-10-25 17:15 | P.PNOB_ITS ---
Subjective - OB Subjective Patient comments: no complaints and pain well controlled [place] baby status: doing well [place] feeding status: exclusively breast feeding Narrative: 29 yo G5 now P2 s/p . Some difficulty . Breastfed 1st daughter for 3 months. Baby is sleepy today. Okay with formula supplementation. Bleeding/pain minimal. Due for tubal ligation today. Date Patient Seen: 10/25/24 Time Patient Seen: 15:00 Exam Vital Signs (past 8 hours): - 10/25/24 15:50 Temperature 98.4 F Pulse Rate 64 Respiratory Rate 16 Blood Pressure 118/74 Pulse Oximetry 99 Oxygen Delivery Method Room Air Oxygen Delivery Method Room Air Narrative Exam Narrative: NAD, attempting to breastfeed. Objective Labs 10/24/24 16:45 Labs: Laboratory Results - last 24 hr 10/24/24 16:45 WBC 11.1 H RBC 4.37 Hgb 10.1 L Hct 31.5 L MCV 72.0 L MCH 23.1 L MCHC 32.1 RDW 17.5 H Plt Count 185 Neut % (Auto) 72.1 Lymph % (Auto) 19.7 L [place] % (Auto) 7.4 Eos % (Auto) 0.4 L Baso % (Auto) 0.4 Neut # (Auto) 8000 H Lymph # (Auto) 2200 [place] # (Auto) 800 Eos # (Auto) 0 Baso # (Auto) 0 Blood Type A Positive Antibody Screen Negative Assessment & Plan Plan day: 1 plan OB: routine care Comments: Tubal today by Dr. Ramey Time-Based Coding :: 30 minutes spent with patient and on the chart (including review of chart, obtaining history, exam, reviewing outside data, placing orders, documenting exam and treatment plan, and counseling patient) on 10/25/2024.
[2024-10-25 17:33] VITALS: BP 100/70; PULSE 78; RESP 16; TEMP 36.6; O2SAT 97
--- NOTE | 2024-10-25 17:34 | PM.GYNOP.1 ---
Operative Date/Time/Diagnoses Date of procedure: 10/25/24 Time of procedure: 17:34 Pre-op diagnosis: Multiparity Desires permanent sterilization Post-op diagnosis: same Procedure & Clinicians Procedure: Procedures Operation Date: 10/25/24 16:15 Actual Procedure Side Surgeon p Laparoscopic Salpingectomy Bilateral Sarah Ramey MD Indications: Patient is a 29-year-old 5 para 2 who desires permanent sterilization. Surgeon: Sarah Ramey Anesthesia Type: General and Local Operative Notes Findings: Fundus at U -1 Normal tubes and ovaries Closure Type: primary Specimen(s): left tube and right tube Estimated blood loss (mL): 3 Blood products transfused: none Procedure in detail: After informed consent was obtained, the patient was taken to the operating room where she was placed in the dorsal supine position. After adequate general endotracheal anesthesia was achieved, she was prepped and draped in the usual sterile fashion. A time-out was performed. Allis clamps were placed 2-1/2 cm apart below the umbilical fold. 6 cc of 0.5% Marcaine with epinephrine were injected below the skin. A 2 cm incision was made. Allis clamps were placed on either edge and the incision was carried down to the fascia. The fascia was nicked in the midline and extended bilaterally with the Lynne scissors. Using hemostats, the peritoneum was grasped between 2 hemostats and entered sharply with the Metzenbaum scissors. This incision was extended bluntly. The fundus was at U -1. Sweeping over to the left side the left tube was identified and grasped with a [place]. This was carried out to the fimbriated end. Using the small, hand-held power seal, the mesosalpinx was cauterized and cut all the way to the cornua of the uterus. The tube was amputated at the cornua. Hemostasis was achieved. This was repeated on the patient's right side. Hemostasis was achieved. The ovaries were examined and were found to be normal. The fascia was reapproximated using 0 Vicryl in a running fashion. The subcutaneous layer was irrigated with warm normal saline. Three simple interrupted sutures were placed in the subcutaneous layer. The skin was closed with 4-0 Monocryl in a subcuticular fashion. Steri-Strips and then Allevyn dressing were placed. Sponge, lap, and instrument counts were correct x2. The patient tolerated the procedure well, and was taken to PACU in stable condition. Complications: none Post-operative Condition: stable Disposition: PACU Plan for aftercare: To the center after PACU
[2024-10-25 17:38] VITALS: BP 106/75; PULSE 73; RESP 16; O2SAT 97
[2024-10-25 17:43] VITALS: BP 115/77; PULSE 79; RESP 14; TEMP 36.2; O2SAT 97
[2024-10-25 17:48] VITALS: BP 107/75; PULSE 64; RESP 16; O2SAT 95
[2024-10-25] MEDS: ONDANSETRON 4 MG/2 ML INJ IV (20:39)
[2024-10-25] MEDS: SERTRALINE 50 MG TABLET PO (20:59)
[2024-10-25] MEDS: DOCUSATE 100 MG CAPSULE PO (20:59)
[2024-10-25] MEDS: polyethylene glycoL 3350 17 GM POWD.PACK PO (21:03)
[2024-10-25] MEDS: KETOROLAC 30 MG/ML VIAL IV (23:12)
[2024-10-26] MEDS: ACETAMINOPHEN 325 MG TABLET 650 MG PO (05:31)
[2024-10-26] MEDS: KETOROLAC 30 MG/ML VIAL IV (05:31)
--- NOTE | 2024-10-26 07:59 | PM.OBDS.1 ---
Discharge Providers Provider Date of admission: 10/24/24 16:17 Discharge Date: 10/26/24 Primary care physician: Tate Michel DO Consults: 10/24/24 17:07 Consult to Anesthesiology Urgent Comment: Consulting Provider: Anesthesiologist Reason for consultation: Epidural 10/26/24 00:40 Consult to Construction Person Routine Comment: Discharge provider: Jefry Flores MD Summary Hospital Course Date Patient Seen: 10/26/24 Time Patient Seen: 07:59 Diagnoses: Intrauterine gestation, [place], 39+ 3 weeks gestational age, delivered by spontaneous vaginal Request for sterilization Hospital Course: Miquel was admitted early on the afternoon of 10/24/2024 in labor and proceeded to move through the labor spontaneously with an epidural in place and delivered a viable female with Apgars of 8/9, weight of 3224 g (7 lb 1.7 oz) at 11:47 p.m. on the evening of 10/24/2024. The following day she underwent bilateral salpingectomy by Dr. Gricel Ramey. Details of that procedure well summarized on her operative note of that date. Following delivery and bilateral salpingectomy, the patient has done extremely well with prompt return of bowel and bladder function, she is ambulating independently, tolerating regular diet, and her pain is well relieved with oral pain medications. She will be discharged at this time to home in an afebrile normotensive condition after counseling regarding precautionary symptoms, limitations activity, medications, and plans for follow-up which will be in 6 weeks. Medications at discharge will include resumption of all preadmission medications as well as oxycodone 5 mg every 4-6 hours as needed for pain, dispensed 6 with no refills. Peripartum Data Infant Delivery Method: Natural Vaginal Laceration Description: Perineal - 2nd Degree Episiotomy description: None Procedures: Continuous lumbar epidural anesthesia Spontaneous vaginal with repair of second-degree perineal laceration bilateral salpingectomy complications: none 1: Gender: Female Disposition of : home Status at Discharge Cognitive/behavioral status at discharge: oriented Functional status at discharge: independent ambulation Overall status at discharge: patient is progressing back to baseline Time Spent with Patient Time attestation: Total time spent providing and/or coordinating discharge services: Time spent: Less than 30 minutes Objective Labs 10/24/24 16:45 Exam Vital Signs (past 8 hours): Oxygen Delivery Method Room Air Const General: cooperative and comfortable Nutritional Appearance: average body habitus Orientation: alert and oriented x3 HENMT Head: normal to inspection, atraumatic and abrasion Ears: hearing grossly normal bilaterally Face and sinus: face symmetric Eyes General: appearance normal, both eyes and all related structures Conjunctivae: conjunctivae normal Sclera: sclerae normal EOM: EOM intact bilaterally Neck Neck: normal visual inspection Resp Effort & Inspection: normal respiratory effort and able to speak in complete sentences GI Inspection: normal to inspection and incision (Surgical dressings clean and dry) Palpation: soft, no hepatosplenomegaly and tender (Mild, diffuse postsurgical tenderness) External Female Exam: other (No significant bleeding noted) Extrem General: no calf tenderness Psych Appearance: grossly normal Mental Status: mental status grossly normal Speech and Movement: speech and movement normal Mood: congruent mood Affect: normal affect Attitude: cooperative Thought Process: normal Thought Content: normal Judgment: judgment good Discharge Plan Discharge Plan Patient Disposition: Home Provider Discharge Comment: Please review the written instructions you received when you were discharged from the hospital. Your follow-up appointment is set for 6 weeks after your discharge and I look forward to seeing you then. If however you have any issues, concerns, questions, please contact me either through the office phone at [phone], or via the patient portal. Discharge orders & Medications Prescriptions: New oxycodone 5 mg Tablet 5 mg PO Q4HR PRN (Reason: Pain, Moderate (4-6)) Qty: 6 0RF Continued ondansetron 8 mg tablet,disintegrating 8 mg PO Q8H Qty: 90 1RF prochlorperazine maleate [Compazine] 5 mg tablet 5 mg PO TID PRN (Reason: nausea and vomiting) Qty: 60 3RF famotidine [Pepcid AC] 20 mg tablet 20 mg PO BID [id number] oil 400 mcg-35 mg -25 mg-5 mg tablet,chewable PO ascorbic acid (vitamin C) 500 mg tablet 500 mg PO DAILY Dramamine 25 mg tablet,chewable 50 mg PO Q4-6H PRN polyethylene glycol 3350 [Miralax] 17 gram/dose powder 17 g PO DAILY clonazepam [Klonopin] 1 mg tablet 1 mg PO BID Qty: 60 0RF Follow up/Referrals: Tate Michel DO [Primary Care Provider] - Jefry Flores MD [Physician] - 12/07/24 9:30 am (Please follow up with Dr. Flores for your 1 week incisional check on November 02 @ 11:00am and your 6 week appointment on Saturday December 07, 2024 @ 9:30 am. Please arrive 15 minutes early for your appointment time!) Discharge Health Status Multidrug resistant organism: No MDRO Diet/Activity/Treatments Diet: Diet as Tolerated Activity: As tolerated Other treatments: [id number] Tylenol and/or ibuprofen may be used as needed for additional pain Skin/Wound/Dressing Care Report to your healthcare provider any signs of infection, such as:: chills, fever, increased pain, unusual drainage and unusual redness Dressing: Dressing should be removed on the morning 10/28/2024 Visit Report/Discharge Packet Instructions: DI for Labor and Delivery, Vaginal , DI for and Nipple Soreness, Tubal Ligation -- Laparoscopic Surgery, DI for Prescription Opioid Use Stand Alone Forms: Congestive Heart Failure, Surgery Discharge Discharge Data Primary Care Provider: Tate Michel
== END 2024-10-26 09:30 | disposition home or self-care (01) | DRG 798 ==
PROVIDERS: Obstetrics & Gynecology; Admitting Provider Obstetrics & Gynecology; PCP Family Medicine; Referring Provider Family Medicine; Visit Provider Family Medicine
PROC: 0UT74ZZ Resection of Bilateral Fallopian Tubes, Percutaneous Endoscopic Approach (ICD-10-PCS; CPT 58661; principal; 2024-10-25 16:15)
DX: O70.1 Second degree perineal laceration during delivery (principal); Z37.0 Single live birth; Z30.2 Encounter for sterilization; Z3A.39 39 weeks gestation of pregnancy; O99.344 Other mental disorders complicating childbirth; F41.9 Anxiety disorder, unspecified
CPT/HCPCS: 36415; 58661; 59050; 59400; 59409; 85025; 86850; 86900; 86901; G0379; J0131; J0330; J1100; J1885; J2405; J2704; J3010